=== PATIENT | male | born 1965 | race Caucasian/White ===

== ENCOUNTER 2022-06-11 11:56 | Outpatient (CLI) | payer MEDICARE, OTHER, SELFPAY ==
--- OUTSIDE RECORDS SUMMARY | 2022-07-17 12:17 | XMS_ITS | Clinical Summary ---
:1965 Author Organization [facility] [place] [address] Care Team Providers Name Role Phone Adalid Osborne MD Primary Care Provider [phone] Allergies Active Allergy Reactions Severity Noted Date Comments Lisinopril Other - Describe In 09/30/2019 Creatini ne to 1.59, Comment Field potassium to 5 .4. Improved after stopping. Medications Medication Sig Dispensed Refills Start End Status Date Date allopurinoL (ZYLOPRIM) Take 1.5 135 Tablet 4 09/06/19 Active 300 mg Tablets (450 22 tabletIndications: Gout mg) by mouth of knee, unspecified once daily. cause, unspecified chronicity, unspecified laterality amLODIPine (NORVASC) 10 Take 1 Tablet 90 Tablet 4 09/06/19 Active mg tabletIndications: (10 mg) by 22 Essential hypertension mouth once daily. atenoloL (TENORMIN) 100 Take 1 Tablet 90 tablet. 4 09/06/19 Active mg tabletIndications: (100 mg) by 22 Essential hypertension mouth once daily. atorvastatin (LIPITOR) Take 1 Tablet 90 tablet. 4 09/06/19 Active 40 mg (40 mg) by 22 tabletIndications: mouth once Hyperlipidemia, daily. unspecified hyperlipidemia type glycopyrrolate-formoter Inhale 2 5.9 g 3 09/06/19 Active oL (Bevespi Aerosphere) puffs by 22 9-4.8 mcg mouth twice HFAAIndications: daily. Chronic obstructive pulmonary disease, unspecified COPD type (HC) albuterol-ipratropium Inhale 3 mL 540 mL 3 09/06/19 Active (DUONEB) (2.5-0.5 mg) via a 22 in 3 mL NEBULIZATION nebulizer solutionIndications: every 6 hours Chronic obstructive if needed for pulmonary disease, Shortness of unspecified COPD type Breath 1st (HC) choice. albuterol HFA (PRO-AIR; four times 0 06/15/20 Active VENTOLIN; PROVENTIL) 90 daily 22 mcg/actuation inhaler nicotine 21 mg/24 hr APPLY 1 PATCH 0 06/16/20 Active (NICODERM; HABITROL) 21 TOPICALLY TO 22 mg/24 hr patch THE SKIN EVERY 24 HOURS magnesium oxide (MAG-OX Take 1 Tablet 180 Tablet 3 06/18/20 Active 400) 400 mg (400 mg) by 22 tabletIndications: mouth two Heart failure with times daily. preserved ejection fraction, unspecified HF chronicity (HC) levothyroxine Take 1 Tablet 60 Tablet 6 06/19/20 Ac tive (SYNTHROID) 50 mcg (50 mcg) by 22 tabletIndications: mouth before Hypothyroidism breakfast. (acquired) triamcinolone Apply 45 g 0 07/02/20 Active (ARISTOCORT; KENALOG) topically to 22 0.1 % creamIndications: affected Rash area(s) three times daily. As needed to rash. potassium chloride Take 1 Tablet 90 Tablet 3 07/04/20 Active (Klor-Con M20) 20 mEq (20 mEq) by 22 Extended-Release mouth once tabletIndications: daily with a Heart failure with meal. preserved ejection fraction, unspecified HF chronicity (HC) torsemide (DEMADEX) 20 Take 2 180 Tablet 3 07/04/20 Active mg tabletIndications: Tablets (40 22 Heart failure with mg) by mouth preserved ejection once daily. fraction, unspecified HF chronicity (HC) warfarin (COUMADIN) 1 Take by mouth 0 07/17/20 Active mg tabletIndications: 07/17: 5 mg; 22 Paroxysmal atrial 07/18: 2.5 mg; fibrillation (HC), 07/19: 2.5 mg Anticoagulation in the monitoring, INR range evening OR as 2-3 directed warfarin (COUMADIN) 5 Take by mouth 0 07/17/20 Active mg tabletIndications: 6: 5 mg; 22 Paroxysmal atrial 07/18: 2.5 mg; fibrillation (HC), 07/19: 2.5 mg Anticoagulation in the monitoring, INR range evening OR as 2-3 directed aspirin (ECOTRIN) 81 mg Take 1 tablet 0 10/26/19 Discontinued enteric coated by mouth once 18 022 ( *Med tabletIndications: daily with a complete/Regime Controlled type 2 meal. n diabetes mellitus co mplete/Level without complication, of care change) without long-term current use of insulin (HC) predniSONE (DELTASONE) 3 oral daily 14 tablet 0 09/30/1902/10 Discontinued 20 mg for 2 days, 20 022 (*Med tabletIndications: then 2 daily complete/Regime Chronic obstructive for 4 days. n pulmonary disease, c omplete/Level unspecified COPD type of care change) (HC) hydroCHLOROthiazide Take 1 Tablet 90 Tablet 4 09/06/19 Discontinued (HCTZ) 25 mg (25 mg) by 22 022 (*Medi cation tabletIndications: mouth once adjustment) Essential hypertension daily. magnesium oxide (MAG-OX Take 400 mg 0 06/16/2002/10 Discontinued 400) 400 mg tablet by mouth two 22 022 (Reorder times daily. (E-canc el not sent)) potassium chloride Take 20 mEq 0 06/15/20 Discontinued (MICRO-K) 10 mEq by mouth once 22 022 (Reorder Controlled-release daily. ( E-cancel not capsule sent)) torsemide (DEMADEX) 100 Take 100 mg 0 06/16/2002/10 Discontinued mg tablet by mouth once 22 022 (Reord er daily. (E-cancel not sent)) warfarin (COUMADIN) 5 Take 7.5 mg 0 06/15/20 Discontinued mg tablet by mouth. 22 022 (Reorder (E-cancel not sent)) potassium chloride Take 2 240 Tablet 3 06/18/20 Discontinued (Klor-Con M20) 20 mEq Tablets (40 22 022 (Reorder Extended-Release mEq) by mouth (E-cancel not tabletIndications: two times s ent)) Heart failure with daily with preserved ejection meals. fraction, unspecified HF chronicity (HC) torsemide (DEMADEX) 100 Take 1 Tablet 90 Tablet 3 06/18/20 Discontinued mg tabletIndications: (100 mg) by (Reorder Heart failure with mouth once (E-cancel not preserved ejection daily. s ent)) fraction, unspecified HF chronicity (HC) warfarin (COUMADIN) 5 Take by 0 06/18/20 Discontinued mg tabletIndications: mouth: HOLD 022 (Other - add Paroxysmal atrial on 06/18 until note to specify fibrillation (HC), INR result (E-cancel not Anticoagulation reviewed. sent )) monitoring, INR range 2-3 warfarin (COUMADIN) 5 Take by mouth 0 06/19/2006/12 Discontinued mg tabletIndications: 06/18: Hold; 022 (Other - add Paroxysmal atrial 06/19: 2.5 mg; note to specify fibrillation (HC), 06/20: 2.5 mg (E-cancel not Anticoagulation sent )) monitoring, INR range 2-3 warfarin (COUMADIN) 1 Take 1 Tablet 30 Tablet 0 06/22/2006/12 Discontinued mg tabletIndications: (1 mg) by (Other - add Paroxysmal atrial mouth once n ote to specify fibrillation (HC), daily. ( E-cancel not Anticoagulation sent )) monitoring, INR range 2-3 warfarin (COUMADIN) 5 Has on hand 0 06/22/20 Discontinued mg tabletIndications: not using (Medication Paroxysmal atrial th erapy change fibrillation (HC), p er hospital Anticoagulation prot ocol monitoring, INR range (E-cancel not 2-3 sent)) warfarin (COUMADIN) 1 Take by mouth 0 06/26/2006/12 Discontinued mg tabletIndications: 06/26: 1 mg; (Other - add Paroxysmal atrial 06/27: 2 mg; note to specify fibrillation (HC), 06/28: 1 mg (E-cancel not Anticoagulation in the sent )) monitoring, INR range evening OR as 2-3 directed warfarin (COUMADIN) 1 Take by mouth 0 06/29/2006/13 Discontinued mg tabletIndications: 06/29: 2 mg; (Other - add Paroxysmal atrial 06/30: 1 mg; note to specify fibrillation (HC), 07/01: 1 mg (E-cancel not Anticoagulation sent )) monitoring, INR range 2-3 warfarin (COUMADIN) 1 Take by mouth 0 07/03/2006/13 6 Discontinued mg tabletIndications: 07/03: 2 mg; 22 022 (Reorder Paroxysmal atrial 07/04: 1 mg; (E-cancel not fibrillation (HC), 07/05: 2 mg; sent)) Anticoagulation 07/06: 1 mg monitoring, INR range 2-3 warfarin (COUMADIN) 1 Take by mouth 0 07/07/2006/13 9 Discontinued mg tabletIndications: 07/07: 2.5 22 022 (Medication Paroxysmal atrial mg; 07/08: t herapy change fibrillation (HC), 2.5 mg in the per hospital Anticoagulation evening OR as protocol monitoring, INR range directed (E-cancel not 2-3 sent)) warfarin (COUMADIN) 5 Take by mouth 0 07/10/20 2/2 Discontinued mg tabletIndications: 07/10: 3.5 22 022 (Other - add Paroxysmal atrial mg; 07/11: 3 note to specify fibrillation (HC), mg; 07/12: 3 (E-cancel not Anticoagulation mg in the sent )) monitoring, INR range evening OR as 2-3 directed warfarin (COUMADIN) 1 Take by mouth 0 07/10/20/2 Discontinued mg tabletIndications: 07/10: 3.5 22 022 (Other - add Paroxysmal atrial mg; 07/11: 3 note to specify fibrillation (HC), mg; 07/12: 3 (E-cancel not Anticoagulation mg OR as sent )) monitoring, INR range directed 2-3 warfarin (COUMADIN) 5 Take by mouth 0 07/13/20 6/2 Discontinued mg tabletIndications: 07/13: 2.5 mg; 22 022 (Other - add Paroxysmal atrial 07/14: 2.5 mg; note to specify fibrillation (HC), 07/15: 2.5 mg (E-cancel not Anticoagulation sent )) monitoring, INR range 2-3 warfarin (COUMADIN) 1 Take by mouth 0 07/13/200 6/2 Discontinued mg tabletIndications: 2: 2.5 mg; 22 022 (Other - add Paroxysmal atrial 07/14: 2.5 mg; note to specify fibrillation (HC), 07/15: 2.5 mg (E-cancel not Anticoagulation sent )) monitoring, INR range 2-3 Active Problems Problem Noted Date Pulmonary hypertension 06/18/2022 Paroxysmal atrial fibrillation 06/18/2022 Anticoagulation monitoring, INR range 2-3 06/18/2022 Heart failure with preserved ejection fraction 022 Controlled type 2 diabetes mellitus without complicati [...] 05/10/2015 08/10/2016 Other abnormal glucose 11/20/2006 08/10/2016 Encounters Date Type Specialty Care Team Description 07/17/2022 Anticoagulation 1, [facility] 07/16/2022 Orders Only Lab, [facility] 07/16/2022 Travel 07/13/2022 Anticoagulation 1, [facility] 07/12/2022 Orders Only Lab, [facility] 07/12/2022 Travel 07/09/2022 Orders Only Lab, [facility] 07/09/2022 Anticoagulation 1, [facility] Clinic 07/09/2022 Travel 07/07/2022 Telephone Adalid Osborne MD (Warfarin dosin g review) 07/07/2022 Anticoagulation 1, [facility] 07/06/2022 Orders Only Lab, [facility] 07/06/2022 Orders Only Lab, [facility] 07/06/2022 Travel 07/04/2022 Telephone Adalid Osborne MD 07/03/2022 Anticoagulation 1, [facility] (Provider visit ) 07/02/2022 Office Visit Adalid Osborne Follow Up MD [facility] 07/02/2022 Travel 06/29/2022 Anticoagulation 1, [facility] 06/28/2022 Orders Only Lab, [facility] 06/28/2022 Travel 06/26/2022 Anticoagulation 1, [facility] ([facility]far[facility]) Clinic 06/25/2022 Orders Only Lab, [facility] 06/25/2022 Travel 06/22/2022 Telephone 1, [facility] (dosing) Clinic 06/22/2022 Anticoagulation 1, [facility] ([facility]farin) Clinic 06/21/2022 Orders Only Lab, [facility] 06/21/2022 Travel 06/19/2022 Telephone Adalid Osborne MD 06/19/2022 Telephone Adalid Osborne Questions MD [facility] 06/19/2022 Telephone 1, [facility] (dosing) [facility] 06/18/2022 Office Visit Adalid Osborne [facility] U ([facility], 06/11 - 06/16/2022, A-fi b, COPD) 06/18/2022 Anticoagulation 1, [facility] (Initial (warfarin) Clinic education visit ) 06/18/2022 Telephone Adalid Osborne Anticoagula tion (Lab MD [facility] order for AC cl inic) 06/18/2022 Travel 06/16/2022 Telephone Adalid Osborne Appointment Request MD [facility] (post hospital ) 06/15/2022 Orders Only Scanner <No scans attac hed> 06/12/2022 Orders Only <No scans attac hed> 06/11/2022 Orders Only Scanner <No scans attac hed> 06/11/2022 Orders Only Scanner <No scans attac hed> from Last 3 Months Immunizations Name Administration Dates Next Due COVID-19 vaccine ([employer] 30mcg/0.3mL) 12YO+ 022 BIVALENT BOOSTER PF, MDV COVID-19 vaccine ([employer] 30mcg/0.3mL) 12YO+ 022 INNA-[employer] JAELYN EDWARD COVID-19 vaccine (Pfizer-BioNTech 30mcg/0.3mL) PF, 1, 11/29/2020 JAELYN Family History Medical History Relation Name Comments Diabetes Father Other Father gout Other Mother Anesthesia Problem No Family History Relation Name Status Comments Father Mother Social History Tobacco Use Types Packs/Day Years Used Date Former Smoker Cigarettes 1 35 Quit: 06/11/20 22 Smokeless Tobacco: Never Used Tobacco Cessation: Counseling Given: Yes Comments: 08/13 PPD 06/16/2019 Alcohol Use Standard Drinks/Week Comments [...] Assigned at Date Recorded Not on file COVID-19 Exposure Response Date Recorded In the last 10 days, have you been in contact with No / Unsu re 07/16/2022 11:55 AM WORKFORCE MANAGEMENT CONSULTANT someone who was confirmed or suspected to have Coronavirus/COVID-19? Obstetrics History Last Filed Vital Signs Vital Sign Reading Time Taken Comments Blood Pressure 103/68 07/02/2022 10:55 AM WORKFORCE MANAGEMENT CONSULTANT Pulse 70 07/02/2022 10:55 AM WORKFORCE MANAGEMENT CONSULTANT Temperature 36.7 ??C (98 ??F) 09/30/2019 11:50 AM WORKFORCE MANAGEMENT CONSULTANT Respiratory Rate 20 06/16/2019 7:44 AM WORKFORCE MANAGEMENT CONSULTANT Oxygen Saturation 97% 07/02/2022 10:55 AM WORKFORCE MANAGEMENT CONSULTANT Inhaled Oxygen Concentration - - Weight 153.8 kg (339 lb) 07/02/2022 10:55 AM WORKFORCE MANAGEMENT CONSULTANT Height 180.7 cm (5' 11.14) 09/06/2021 10:13 AM WORKFORCE MANAGEMENT CONSULTANT Body Mass Index 47.09 09/06/2021 10:13 AM WORKFORCE MANAGEMENT CONSULTANT Plan of Treatment Upcoming Encounters Date Type Specialty Care Team Description 07/19/2022 Orders Only Lab, [facility] 07/26/2022 Office Visit Adelfo Mcneil MD [address] [place], [place] [address] (Wo rk) 07/26/2022 Office Visit Adalid Osborne MD [address] [place], [place] [address] (Wo rk) 08/14/2022 Office Visit Chavo Azar MD [address] [address] (Wo rk) Health Maintenance Due Date Last Done Comments Pneumococcal series for age 19-64 1969 (1 - PCV) Tdap 1974 HIV for age 15-65 1978 Hepatitis B series for Diabetes (1 1982 of 3 - Risk 3-dose series) Tetanus booster 1983 Colonoscopy through age 75 2008 Zoster (shingles) series for age 1207/20/2013 50+ (1 of 2) Low Dose CT (for lung CA) age 0804/09/2019 04/09/2018 50-80 Influenza for age 50-64 04/12/2022 BMI (ht and wt on same day) for 09/06/2022 09/06/2021, 08/12, age 18+ 09/30/2019, Additional history exists Depression screening for age 12+ 09/06/2022 09/06/2021, , 08/03/2019, Additional history exists Lipids for age 45-75 09/06/2026 09/06/2021, 08/24/2020, 07/30/2019, Additional history exists Hepatitis C screening for age Completed 08/10/2016 18-79 COVID-19 vaccine series Completed 07/02/2022, 09/06/2021, 12/20/2020, Additional history exists Procedures Procedure Name Priority Date/Time Associated Diagnosis Comme nts PROTIME-INR STAT 07/16/2022 12:04 Paroxysmal atrial Result s for this PM WORKFORCE MANAGEMENT CONSULTANT fibrillation (HC) procedure are in the results section. PROTIME-INR STAT 07/12/2022 1:56 Paroxysmal atrial Results for this PM WORKFORCE MANAGEMENT CONSULTANT fibrillation (HC) procedure are in the results section. BASIC METABOLIC PANEL Routine 07/09/2022 1:57 Heart failure wi th Results for this PM WORKFORCE MANAGEMENT CONSULTANT preserved ejection procedure are in fraction, unspecified the re sults HF chronicity (HC) section. PROTIME-INR STAT 07/09/2022 1:57 Paroxysmal atrial Results for this PM WORKFORCE MANAGEMENT CONSULTANT fibrillation (HC) procedure are in the results section. PROTIME-INR STAT 07/06/2022 9:34 Paroxysmal atrial Results for this AM WORKFORCE MANAGEMENT CONSULTANT fibrillation (HC) procedure are in the results section. URINE ALBUMIN TO Routine 07/06/2022 8:15 Controlled type 2 Res ults for this CREATININE RATIO, AM WORKFORCE MANAGEMENT CONSULTANT diabetes mellitus proce dure are in RANDOM without complication, the re sults without long-term section. current use of insulin (HC) BASIC METABOLIC PANEL Routine 07/02/2022 11:49 Controlled type 2 Results for this AM WORKFORCE MANAGEMENT CONSULTANT diabetes mellitus procedure are in without complication, the re sults without long-term section. current use of insulin (HC) HEMOGLOBIN A1C Routine 07/02/2022 11:49 Controlled type 2 Resu lts for this AM WORKFORCE MANAGEMENT CONSULTANT diabetes mellitus procedure are in without complication, the re sults without long-term section. current use of insulin (HC) PROTIME-INR STAT 07/02/2022 11:49 Paroxysmal atrial Result s for this AM WORKFORCE MANAGEMENT CONSULTANT fibrillation (HC) procedure are in the results section. PROTIME-INR STAT 06/28/2022 12:38 Paroxysmal atrial Result s for this PM WORKFORCE MANAGEMENT CONSULTANT fibrillation (HC) procedure are in the results section. PROTIME-INR STAT 06/25/2022 12:22 Paroxysmal atrial Result s for this PM WORKFORCE MANAGEMENT CONSULTANT fibrillation (HC) procedure are in the results section. PROTIME-INR STAT 06/21/2022 2:13 Paroxysmal atrial Results for this PM WORKFORCE MANAGEMENT CONSULTANT fibrillation (HC) procedure are in the results section. T4,FREE Routine 06/18/2022 12:24 Hypothyroidism Results f or this PM WORKFORCE MANAGEMENT CONSULTANT (acquired) procedure are i n the results section. PROTIME-INR Routine 06/18/2022 12:24 Paroxysmal atrial Result s for this PM WORKFORCE MANAGEMENT CONSULTANT fibrillation (HC) procedure are in the results section. MAGNESIUM Routine 06/18/2022 12:24 Low magnesium level Resu lts for this PM WORKFORCE MANAGEMENT CONSULTANT procedure are i n the results section. TSH WITH REFLEX Routine 06/18/2022 12:24 Hypothyroidism Result s for this PM WORKFORCE MANAGEMENT CONSULTANT (acquired) procedure are i n the results section. BASIC METABOLIC PANEL Routine 06/18/2022 12:24 Heart failure w ith Results for this PM WORKFORCE MANAGEMENT CONSULTANT preserved ejection procedure are in fraction, unspecified the re cielots HF chronicity (HC) section. SCAN-LABORATORY REPORT 06/15/2022 12:00 R esults for this AM CDT procedure are i n the results section. ECHO COMPLETE W Routine 06/12/2022 3:00 Anasarca Results f or this CONTRAST PM CDT procedure are i n the results section. SCAN-ELECTROCARDIOGRAM 06/11/2022 12:00 EKG AM CDT SCAN-CT INTERPRETATION 06/11/2022 12:00 AM CDT from Last 3 Months Results (ABNORMAL) PROTIME-INR (07/16/2022 12:04 PM WORKFORCE MANAGEMENT CONSULTANT)Only the most recent of9 results within the time period is included. athologist Signature INR 1.6 (H) <1.3 07/16/2022 [facility] 8:02 PM WORKFORCE MANAGEMENT CONSULTANT LABORATORY-[facility] PROTIME 18.0 (H) 12.0 - 13.8 07/16/2022 [facility] 8:02 PM WORKFORCE MANAGEMENT CONSULTANT LABORATORY-[facility] Specimen Anatomical Collection Method / Collection Time Recei taisha Time (Source) Location / Volume Laterality Blood BLOOD SPECIMEN / Venipuncture / 07/16/2022 12:04 07/16 Unknown Unknown PM WORKFORCE MANAGEMENT CONSULTANT 12:04 PM WORKFORCE MANAGEMENT CONSULTANT Narrative [facility] LABORATORY-[facility] LABORAT [facility] - 07/16/2022 8:02 PM WORKFORCE MANAGEMENT CONSULTANT ?Therapeutic Range 2.0-3.0 for most anticoagulated patients 2.5-3.5 or 4.0 for high risk patients The INR is only used for patients on sta ble oral anticoagulant therapy. It makes no significant contribution to the diagnosis or treatment of patients whose Protime is prolonged f or other reasons. INR results are increased when heparin l evels exceed 1.0 U/mL, which corresponds to an aPTT >125 seconds if the patient is on UFH. Adalid Osborne MD HEMATOLOGY Performing Organization Address City/State/ZIP Code Phon e Number [email or web address] [id number] [place] [address] LABORATORY-[facility] 1999 LABORATORY (ABNORMAL) BASIC METABOLIC PANEL (07/09/2022 1:57 PM WORKFORCE MANAGEMENT CONSULTANT)Only the most recent of 3 resultswithin the time period is included. [facility] gist Method Time Signature SODIUM 138 135 - 145 07/10/2022 [facility] mmol/L 7:51 PM WORKFORCE MANAGEMENT CONSULTANT LAB[facility]AT[facility] POTASSIUM 4.4 3.5 - 5.0 07/10/2022 [facility] mmol/L 7:51 PM WORKFORCE MANAGEMENT CONSULTANT LAB[facility]ATORY[facility] CHLORIDE 95 (L) 98 - 110 07/10/2022 [facility] mmol/L 7:51 PM WORKFORCE MANAGEMENT CONSULTANT LAB[facility]ATORY[facility] CO2,TOTAL 31 21 - 31 07/10/2022 [facility] mmol/L 7:51 PM WORKFORCE MANAGEMENT CONSULTANT LAB[facility]AT[facility] ANION GAP 12 5 - 18 07/10/2022 [facility] 7:51 PM WORKFORCE MANAGEMENT CONSULTANT LAB[facility]ATORY[facility] GLUCOSE 103 (H) 65 - 100 07/10/2022 [facility] mg/dL 7:51 PM WORKFORCE MANAGEMENT CONSULTANT LAB[facility]ATORY[facility] CALCIUM 10.5 8.5 - 10.5 07/10/2022 [facility] mg/dL 7:51 PM WORKFORCE MANAGEMENT CONSULTANT [facility] BUN 24 8 - 25 07/10/2022 [facility] mg/dL 7:51 PM WORKFORCE MANAGEMENT CONSULTANT [facility] CREATININE 1.29 (H) 0.72 - 07/10/2022 [facility] 1.25 mg/dL 7:51 PM WORKFORCE MANAGEMENT CONSULTANT LAB[facility]ATORY[facility] BUN/CREAT RATIO 19 10 - 20 07/10/2022 [facility] 7:51 PM WORKFORCE MANAGEMENT CONSULTANT LAB[facility]ATORY[facility] eGFR 64 (L) >90 07/10/2022 [facility] mL/min/1.7 7:51 PM WORKFORCE MANAGEMENT CONSULTANT LABORATORY-[facility] 3m2 TRAL LABORATORY Comment: As of 2021, eGFR is calcu lated by the CKD-EPI creatinine equation without race adjustment. eGFR can be inf luenced by muscle mass, exercise, and diet. The reported eGFR is an estimation only and is only applicable if the renal function is stable. Specimen Anatomical Collection Method / Collection Time Recei taisha Time (Source) Location / Volume Laterality Blood BLOOD SPECIMEN / Venipuncture / 07/09/2022 1:57 2021 2:02 Unknown Unknown PM WORKFORCE MANAGEMENT CONSULTANT PM WORKFORCE MANAGEMENT CONSULTANT Adalid Osborne MD CHEMISTRY Performing Organization Address City/State/ZIP Code Phon e Number [facility] [address] [place] [address] LABORATORY-[facility] 2000 LABORATORY URINE ALBUMIN TO CREATININE RATIO, RANDOM (07/06/2022 8:15 AM WORKFORCE MANAGEMENT CONSULTANT) athologist Signature ALB RAND URINE 35.3 mg/L 07/06/2022 [facility] 7:20 PM WORKFORCE MANAGEMENT CONSULTANT LABORATORY-[facility] CREATININE,URIN 1.23 g/L 07/06/2022 [facility] E 7:20 PM WORKFORCE MANAGEMENT CONSULTANT LABORATORY-[facility] ALBUMIN TO 28.7 <30.0 mg/g 07/06/2022 [facility] CREATININE creat 7:20 PM WORKFORCE MANAGEMENT CONSULTANT LABORATORY-CENT RATIO,RAND UR RAL LABORATORY Specimen Anatomical Collection Method Collection Time Receive d Time (Source) Location / / Volume Laterality Urine URINE SPECIMEN / Non-Blood / 07/06/2022 8:15 AM 07/06 9:28 Unknown Unknown WORKFORCE MANAGEMENT CONSULTANT AM WORKFORCE MANAGEMENT CONSULTANT Narrative [facility] LABORATORY-[facility]ENTRAL LABORAT ORY - 07/06/2022 7:20 PM WORKFORCE MANAGEMENT CONSULTANT If Albumin to Creatinine Ratio is elevated, consider the following: ? Elevations seen with incipient nephr opathy associated ?? with diabetes mellitus or hypertensi on. Stress, exercise, ?? hematuria, and urinary tract infecti on may also produce ?? elevated results. If clinically mp cated, confirm with ?? 24 Hour Albumin to Creatinine Ratio. Adalid Osborne MD URINE Performing Organization Address City/State/ZIP Code Phon e Number [facility] [address] [place] [address] LABORATORY-[facility] 2000 LABORATORY HEMOGLOBIN A1C MONITORING (POCT) (07/02/2022 11:49 AM WORKFORCE MANAGEMENT CONSULTANT) athologist Signature HEMOGLOBIN A1C 4.7 <=6.4 % 07/02/2022 [facility] MONITORING 12:04 PM WORKFORCE MANAGEMENT CONSULTANT LULING (POCT) CLINIC Specimen Anatomical Collection Method / Collection Time Recei taisha Time (Source) Location / Volume Laterality Blood BLOOD SPECIMEN / Venipuncture / 07/02/2022 11:49 07/02 Unknown Unknown AM WORKFORCE MANAGEMENT CONSULTANT 11:50 AM WORKFORCE MANAGEMENT CONSULTANT Narrative [facility] - 2021 12:04 PM WORKFORCE MANAGEMENT CONSULTANT ? (<=6.9%) ? Indicates good control ? (7.0% to 7.9%) ? Indicates fa ir control ? (>=8.0%) ? Indicates poor control ?? NOTE: ??These thresholds are guideli karin and ?individual targets may va ry. Falsely low levels may be seen with: Recent Transfusion, Recent Significant B lood Loss, Hemolytic Diseases, or Falsely elevated levels may be seen with : Untreated Anemias, Splenectomy ? Adalid Osborne MD CHEMISTRY Performing Organization Address City/State/ZIP Code Phon e Number [facility] [address] [place] [address] (ABNORMAL) TSH WITH REFLEX (06/18/2022 12:24 PM WORKFORCE MANAGEMENT CONSULTANT) athologist Signature TSH 12.10 (H) 0.35 - 06/19/2022 [facility] [employer] 4.94 9:13 AM WORKFORCE MANAGEMENT CONSULTANT LABORATORY-CENT uIU/mL [facility]ORY Specimen Anatomical Collection Method / Collection Time Recei taisha Time (Source) Location / Volume Laterality Blood BLOOD SPECIMEN / Venipuncture / 06/18/2022 12:24 06/18 Unknown Unknown PM WORKFORCE MANAGEMENT CONSULTANT 12:29 PM WORKFORCE MANAGEMENT CONSULTANT Narrative [facility] LABORATORY-CENTRAL LABORAT ORY - 06/19/2022 9:13 AM WORKFORCE MANAGEMENT CONSULTANT In Adults, TSH values between 5.00 and 10.00 uIU/ml do not necessarily indicate the presence of Hyp othyroidism. Correlation with clinical findings such as presence of goiter and/or Thyroperoxidase (TPO) Antibody ma y be helpful. For more information please refer to SALAS 20 04; 291: [id number]. Adalid Osborne MD CHEMISTRY Performing Organization Address City/State/ZIP Code Phon e Number [email or web address] [id number] [place] [address] LABORATORY-CENTRAL 2000 LABORATORY T4,FREE (06/18/2022 12:24 PM WORKFORCE MANAGEMENT CONSULTANT) P athologist Signature T4,FREE 1.18 0.70 - 1.80 06/19/2022 [facility] ng/dL 10:29 AM WORKFORCE MANAGEMENT CONSULTANT LABORATORY-CENTR AL LABORATORY Specimen Anatomical Collection Method / Collection Time Recei taisah Time (Source) Location / Volume Laterality Blood BLOOD SPECIMEN / Venipuncture / 06/18/2022 12:24 06/18 Unknown Unknown PM WORKFORCE MANAGEMENT CONSULTANT 12:29 PM WORKFORCE MANAGEMENT CONSULTANT Adalid Osborne MD CHEMISTRY Performing Organization Address City/State/ZIP Code Phon e Number [id number] [place] [address] LABORATORY-CENTRAL 2000 LABORATORY MAGNESIUM (06/18/2022 12:24 PM WORKFORCE MANAGEMENT CONSULTANT) athologist Signature MAGNESIUM 1.8 1.6 - 2.6 06/19/2022 [facility] mg/dL 8:52 AM WORKFORCE MANAGEMENT CONSULTANT LABORATORY-CENTR AL LABORATORY Specimen Anatomical Collection Method / Collection Time Recei taisha Time (Source) Location / Volume Laterality Blood BLOOD SPECIMEN / Venipuncture / 06/18/2022 12:24 06/18 Unknown Unknown PM WORKFORCE MANAGEMENT CONSULTANT 12:29 PM WORKFORCE MANAGEMENT CONSULTANT Adalid Osborne MD CHEMISTRY Performing Organization Address City/[facility]/ZIP Code Phon e Number [email or web address] [id number] [place] [address] LABORATORY-CENTRAL 2000 LABORATORY SCAN-LABORATORY REPORT (06/15/2022 12:00 AM CDT) Narrative This result has an attachment that is no t available. Scanner OTHER ECHO COMPLETE W CONTRAST (06/12/2022 3:00 PM CDT) athologist Signature AORTIC VALVE 5 mmHg MEAN PG EJECTION 57 % FRACTION PEAK TR 3.4 m/s VELOCITY LVEDD 5.5 cm EJECTION 60 - 65% FRACTION Anatomical Region Laterality Modality HEART Ultrasound Specimen (Source) Anatomical Collection Method Collection Time Re ceived Time Location / / Volume Laterality 06/12/2022 2:29 PM CDT Narrative 06/13/2022 9:50 AM CDT ECHOCARDIOGRAM KANG REAL ? Accessi on#: ?? [id number] : ?1965 56 years Study Date: ?? 06/12/2022 2:29:39 PM Gender: M ?BP: ? 109/70 mmHg Height: 175.00 cm ?BSA: ?2.83 m? ?? Weight: 190.00 kg ?Tech: ? MHR ? Referring MD: OLENA PURCELL Site: ? [facility] Reading Location: [facility] Procedure: 2D w/ Contrast, Color Doppler and Spectral Doppler. Indication for study: anasarca Cardiac Rhythm: Irregular.Study quality: Technically limited. Imaging limitations: This study was subj ect to imaging limitations due to body habitus. Final Impressions: 1. Technically limited exam. 2. Echo contrast was administrered to e nhance visualization of all left ventricular segments. 3. Normal LV size, mildly increased wal l thickness, normal global systolic function with an estimated EF of 60 - 65%. 4. Right ventricular cavity size is mod erately enlarged, global systolic RV function is moderately reduced. (Not optimally visualized) 5. Mildly enlarged left atrium. 6. The mitral valve is sclerotic, mild mitral regurgitation. 7. Tricuspid regurgitation is mild regu rgitation, the estimated right ventricular systolic pressure is 47 mmHg plus right atrial pressure. 8. The aortic sinus is dilated with a m aximal diameter of 4.1 cm. Chamber Sizes and Function Normal left ventricular size, mildly inc reased wall thickness, normal global systolic function with an estimated EF of 60 - 65%. Left atrial size is mildly enlarged. Right ventricular cavity size is mod erately enlarged, global systolic RV fun ction is moderately reduced. RV wall thickness is normal. The right atrium is mildly enlarged. Right atrial volume index is 27 ml/m? ??. Right atrial area is 23 c m? ??. The pulmonary artery is of normal size and origin. The sinus of Valsalva is dilated. The ascending aorta is normal sized. Valves, RV Pressures and Diastolic Funct ion The aortic valve is not well visualized , no stenosis and no regurgitation. The mitral valve is sclerotic, mild mitral regurgitation. Indeterminate pattern of LV diastolic filling. The tricuspid valve i s normal in structure. Tricuspid regurgi tation is mild regurgitation. The tricuspid regurgitant velocity is 3.4 m/s, the estimated right ventricular systolic pressure is 47 mmHg plus right atrial pressu re. The pulmonic valve is normal. No pul monary regurgitation. Masses, Effusion, Shunts There is no pericardial effusion. The in ferior vena cava is not well visualized, respiratory size variation not well visualized. Interatrial septum is not well visualized. MEASUREMENTS AND CALCULATIONS 2-D Measurements and LV Function: LVID (d) ?5.5 cm LV FS% (2D) ?? 29 % LVID (s) ?3.9 cm LVOT diameter 2.5 c m IVS (d) ? 1.4 cm HR ?59 bpm LVPW (d) ?1.2 cm LA Vol index ??40 m l/m2 Ao Sinus ?4.1 cm RA Vol index ??27 m l/m2 Ao ST junct 3.6 cm RA area ? 23 c m? ?? Asc Ao ?3.6 cm RV Max 4C (d) 3.5 cm LA ?5.4 cm Diastology: Mitral IVRT ?? 37 msec Aortic Valve: Vmax ? 1.6 m/s ??BRICE (V) ?? 3.30 cm? ?? VTI ?0.34 m ?? BRICE (I) ?? 3.27 cm? ?? LVOT V max 1.0 m/s ??Max PG ?10 mmHg LVOT VTI ?? 0.22 m ?? Mean PG ?? 5 mmHg SV ? 112 ml ?? Dim Index 0.65 SV index ?? 40 ml/m? ?? CO ?6.6 l/min ?CI ?2.3 l/min/m? ?? Tricuspid Valve and estimated PA pressur es: TR Vmax 3.4 m/s TAPSE 1.6 cm TR maxG 47 mmHg Contrast documentation: 4ml ml diluted D efinity, lot #[id number], was administered peripherally to enhance visualization of all left ventricular segments. . This study was interpreted [facility] CC: [facility], Med/ Surg - IP [facility]. ??Final ?? Procedure Note Adalid Barrett MD - 06/13/2022Format ting of this note might be different from the original. ECHOCARDIOGRAM KANG REAL : 1965 56 years Study Date: 06/12 2:29:39 PM Gender: M BP: 109/70 mmHg Height: 175.00 cm BSA: 2.83 m? ?? Weight: 190.00 kg Tech: MHR Referring MD: OLENA PURCELL Site: [facility] Reading Location: [facility] Procedure: 2D w/ Contrast, Color Doppler and Spectral Doppler. Indication for study: anasarca Cardiac Rhythm: Irregular.Study quality: Technically limited. Imaging limitations: This study was subj ect to imaging limitations due to body habitus. Final Impressions: 1. Technically limited exam. 2. Echo contrast was administrered to e nhance visualization of all left ventricular segments. 3. Normal LV size, mildly increased wal l thickness, normal global systolic function with an estimated EF of 60 - 65%. 4. Right ventricular cavity size is mod erately enlarged, global systolic RV function is moderately reduced. (Not optimally visualized) 5. Mildly enlarged left atrium. 6. The mitral valve is sclerotic, mild mitral regurgitation. 7. Tricuspid regurgitation is mild regu rgitation, the estimated right ventricular systolic pressure is 47 mmHg plus right atrial pressure. 8. The aortic sinus is dilated with a m aximal diameter of 4.1 cm. Chamber Sizes and Function Normal left ventricular size, mildly inc reased wall thickness, normal global systolic function with an estimated EF of 60 - 65%. Left atrial size is mildly enlarged. Right ventricular cavity size is moderately enlarged, global systolic RV function is moderately reduced. RV wall thickness is normal. The right atrium is mildly enlarged. Right atrial volume index is 27 ml/m? ??. Right atrial area is 23 cm? ??. The pulmonary artery is of normal size and origin. The sinus of Valsalva is dilated. The ascending aorta is normal sized. Valves, RV Pressures and Diastolic Funct ion The aortic valve is not well visualized , no stenosis and no regurgitation. The mitral valve is sclerotic, mild mitral regurgitation. Indeterminate pattern of LV diastolic filling. The tricuspid valve is normal in structure. Tricuspid regurgita tion is mild regurgitation. The tricuspid regurgitant velocity is 3.4 m/s, the estimated right ventricular systolic pressure is 47 mmHg plus right atrial pressure. The pulmonic valve is normal. No pulmonary regurgitat ion. Masses, Effusion, Shunts There is no pericardial effusion. The in ferior vena cava is not well visualized, respiratory size variation not well visualized. Interatrial septum is not well visualized. MEASUREMENTS AND CALCULATIONS 2-D Measurements and LV Function: LVID (d) 5.5 cm LV FS% (2D) 29 % LVID (s) 3.9 cm LVOT diameter 2.5 cm IVS (d) 1.4 cm HR 59 bpm LVPW (d) 1.2 cm LA Vol index 40 ml/m2 Ao Sinus 4.1 cm RA Vol index 27 ml/m2 Ao ST junct 3.6 cm RA area 23 cm? ?? Asc Ao 3.6 cm RV Max 4C (d) 3.5 cm LA 5.4 cm Diastology: Mitral IVRT 37 msec Aortic Valve: Vmax 1.6 m/s BRICE (V) 3.30 cm? ?? VTI 0.34 m BRICE (I) 3.27 cm? ?? LVOT V max 1.0 m/s Max PG 10 mmHg LVOT VTI 0.22 m Mean PG 5 mmHg SV 112 ml Dim Index 0.65 SV index 40 ml/m? ?? CO 6.6 l/min CI 2.3 l/min/m? ?? Tricuspid Valve and estimated PA pressur es: TR Vmax 3.4 m/s TAPSE 1.6 cm TR maxG 47 mmHg Contrast documentation: 4ml ml diluted D efinity, lot #[id number], was administered peripherally to enhance visualization of all left ventricular segments. . This study was interpreted by an [facility] facility. CC: [facility], Med/ Surg - [facility]. Final Olena Purcell MD ECHO ORD SCAN-CT INTERPRETATION (06/11/2022 12:00 AM CDT) Narrative This result has an attachment that is no t available. Scanner OTHER SCAN-ELECTROCARDIOGRAM EKG (06/11/2022 12:00 AM CDT) Narrative This result has an attachment that is no t available. Scanner OTHER from Last 3 Months Insurance Payer Benefit Plan / Subscriber ID Effective Dates Phone Addre ss Type Group MEDICA MR MEDICA PRIME [id number] 2021-Present [address] [address] SOLUTIONS MR PB [place] , [facility] [id number] Advance Directives Latest Code Status on File Code Status Date Activated Date Inactivated Comments Full Code 08/13/2018 10:38 AM 08/19/2018 4:57 PM Full Code 04/10/2018 1:40 PM 04/17/2018 4:02 PM Full Code 05/10/2015 3:24 PM 05/12/2015 7:43 PM Care Teams Airplane Designer Relationship Specialty Start Date End Date Adalid Osborne MD PCP - General 03/11/06 [place] [address]
== END 2022-06-11 11:57 | disposition home or self-care (01) ==
LOC: AMB 07-17 11:15
PROVIDERS: PCP Family Medicine; Visit Provider Family Medicine
DX: R06.09 Other forms of dyspnea (principal); R60.0 Localized edema
CPT/HCPCS: A0425; A0427

== ENCOUNTER 2022-06-11 12:27 | Inpatient (IN) | payer MEDICARE, OTHER, SELFPAY ==
[2022-06-11] VITALS (19 sets, daily range): BP systolic 111–138; BP diastolic 50–84; PULSE 60–80; RESP 17–28; TEMP 35.9–36.6; O2SAT 90–97; BMI 57.2; BMI 127.8
--- NOTE | 2022-06-11 12:55 | ED_ITS ---
HPI - General Adult General Date Seen: 06/11/22 Chief complaint: Shortness of Breath/Dyspnea Stated complaint: difficulty breathing Time Seen by Provider: 06/11/22 12:36 Source: patient and family History of Present Illness HPI narrative: Patient is a 56-year-old male who presents by ambulance for evaluation of bilateral lower extremity swelling and shortness of breath. He tells me that he was diagnosed with COPD several years ago and has had difficulty breathing ever since then. He has had worsening of his shortness of breath over a number of weeks, perhaps months. Over the past couple of weeks, he has had significant increase in lower extremity edema. Over the past couple of days, he has also noted some redness on the right lower extremity at the spot where his says he had a fly bite. He does not have significant pain there, but says he does not have good sensation in general. He has not had any fevers. He says he is basically not able to walk at this point because his legs are so edematous that they are too heavy for him to lift. He is significantly overweight. His also notes that he is cold all the time which is unusual for him. It does not sound as if his shortness of breath is acutely worse over the past couple of days. He does not sleep lying flat at baseline. He has not had any chest pain. Has not noted any palpitations, no lightheadedness or fainting. No vomiting or abdominal pain. He continues to smoke. He drinks nearly daily, but says he does not have trouble with withdrawal. Has not had alcohol for the past 4 days. Denies other substance use. He is on disability secondary to his COPD. He is not on home oxygen. His was not able to get him up to get him into the car, which is why they called 911. Related Data Home Medications Medication Instructions Recorded Confirmed allopurinol 300 mg tablet 450 mg PO DAILY 06/11/22 06/11/22 amlodipine 10 mg tablet 10 mg PO DAILY 06/11/22 06/11/22 atenolol 100 mg tablet 100 mg PO DAILY 06/11/22 06/11/22 atorvastatin 40 mg tablet 40 mg PO HS 06/11/22 06/11/22 hydrochlorothiazide 25 mg tablet 25 mg PO DAILY 06/11/22 06/11/22 Allergies Allergy/AdvReac Type Severity Reaction Status Date / Time No Known Drug Allergies Allergy Verified 06/11/22 16:32 Review of Systems Status of ROS: Reports: 10 or more systems reviewed and unremarkable except as noted in History and below PFSH PFSH Medical History COPD (chronic obstructive pulmonary disease) Degenerative joint disease (DJD) of lumbar spine Essential hypertension Gout Hypertriglyceridemia Non-insulin dependent diabetes mellitus Normocytic anemia Tobacco use Social History Highest level of school completed/degree received: high school graduate Smoking Status: Current every day smoker What tobacco products do you use: cigarettes Smoking packs per day: 2 Smoking cigarettes per day: 40.0 Years smoked: 42 Smoking pack-years: 84.00 Do you use any of these nicotine containing products: None Second hand tobacco smoke exposure: No How often do you have a drink containing alcohol: 2-3 times a week How many standard drinks containing alcohol do you have on a typical day: 5 or 6 How often do you have six or more drinks on one occasion: Weekly AUDIT-C Alcohol total score: 8 Non-prescribed substance use: denies use service: Yes Exam Narrative: Exam Narrative: Vital signs as noted above. In general, an alert, nontoxic male, somewhat tachypneic. Significantly overweight. Head: Normocephalic, atraumatic. Eyes: Pupils are equal reactive. Extraocular movements are full. Conjunctivae are normal. ENT: Mucous membranes are moist. Throat is normal. Neck: Supple without lymphadenopathy. No stridor. Heart: Irregular, no significant murmur. Lungs: Scattered wheezes. No significant increased work of breathing. No crackles. Abdomen: Obese and soft. Nontender to palpation. Extremities: Significant edema in bilateral lower extremities. Too much edema to palpate pulses. On the right, there is a wound on anterior liu with surrounding erythema. No fluctuance or crepitus. Neurologic: Patient is alert and oriented to person and place. Speech is fluent. Face is symmetric. Moves all extremities equally. Affect: Normal. Skin: Warm and dry. Well perfused. Const: Vital Signs, click to edit/add: Vital Signs - 24 hr 06/11/22 12:37 06/11/22 13:48 06/11/22 13:00 Temperature 96.7 F L Pulse Rate [Left A pical] Pulse Rate [Right Pulse Oximeter] 65 61 Respiratory Rate 28 H 24 Blood Pressure [Le ft Arm] Blood Pressure [Ri ght Upper Arm] 138/76 120/66 Pulse Oximetry 96 92 93 Oxygen Delivery Me thod Room Air Room Air 06/11/22 13:30 06/11/22 14:00 06/11/22 14:30 Temperature Pulse Rate [Left A pical] Pulse Rate [Right Pulse Oximeter] 62 61 67 Respiratory Rate 23 17 24 Blood Pressure [Le ft Arm] Blood Pressure [Ri ght Upper Arm] 117/72 126/76 111/65 Pulse Oximetry 93 97 95 Oxygen Delivery Ma thod Room Air Room Air Room Air 06/11/22 17:40 06/11/22 17:40 06/11/22 17:40 Temperature 97.3 F L Pulse Rate [Left A pical] 75 Pulse Rate [Right Pulse Oximeter] Respiratory Rate 22 Blood Pressure [Le ft Arm] 114/71 Blood Pressure [Ri ght Upper Arm] Pulse Oximetry 93 93 93 Oxygen Delivery Ma thod Room Air Room Air 06/11/22 17:30 06/11/22 15:00 06/11/22 15:30 Temperature 97.3 F L Pulse Rate [Left A pical] 75 Pulse Rate [Right Pulse Oximeter] 68 60 Respiratory Rate 22 23 Blood Pressure [Le ft Arm] 114/71 Blood Pressure [Ri ght Upper Arm] 136/74 119/50 L Pulse Oximetry 93 90 90 Oxygen Delivery Ma thod Room Air Room Air Room Air 06/11/22 16:00 Temperature Pulse Rate [Left A pical] Pulse Rate [Right Pulse Oximeter] 66 Respiratory Rate 22 Blood Pressure [Le ft Arm] Blood Pressure [Ri ght Upper Arm] 133/71 Pulse Oximetry 92 Oxygen Delivery Ma thod Room Air Documenting provider has reviewed patient's vital signs: yes Course Course Hospital Course: Will place an IV here, drug labs. I am giving him some Lasix for edema, altho ugh at this point I am not overly suspicious of significant congestive heart failure, will check a BNP. I am also giving prednisone and will give a DuoNeb for COPD. He is not hypoxic, and I do not think he needs oxygen. We will check a TSH to rule out hypothyroidism as a contributing factor to his edema. It does appear that he has a developing cellulitis on the right lower extremity although it is mild at this time. He is afebrile without tachycardia or hypotension, doubt sepsis but will await labs. Reevaluation(s) Reevaluation #1: I elected to hold off on a chest x-ray since I had a D-dimer pending and might need to do a chest CT. In the meantime, wheezing did improve somewhat with the DuoNeb. I treated the cellulitis with Ancef. Labs showed a normal white blood cell count of 6.44, hemoglobin of 11.2. Gas was relatively unremarkable, pH of 7.45 and pCO2 was 49. Electrolytes showed a mildly low potassium of 3.3, other electrolytes normal. Lactate was normal at 1.6. LFTs normal. CRP minimally elevated at 1.9. BNP was elevated at 27 50. TSH was elevated 9.66 but free T4 was normal at 1.4. COVID was negative. Point of care troponin 0. His D-dimer did ultimately returned elevated therefore I added on a CT of the chest. My review of this shows a moderate left-sided effusion, I did not see evidence of any large central PEs but it was a poor study for PE. He left the emergency department prior to the formal Radiology read. They read the effusion as small with associated atelectasis, no evidence of PE. Overall, patient has evidence of significant lower extremity edema to the point that it is inhibiting his ability to ambulate, COPD with possible exacerbation, also with possible CHF c ontributing to worsening shortness of breath. I do think he needs admission to the hospital for diuresis, management of his COPD, treatment for cellulitis. Vital Signs Vital signs: Initial Vital Signs Temperature 96.7 F L 06/11/22 12:37 Temperature Source Temporal Artery Scan 06/11/22 12:37 Pulse Rate 65 06/11/22 12:37 Respiratory Rate 28 H 06/11/22 12:37 Blood Pressure 138/76 06/11/22 12:37 Blood Pressure Mean 96 06/11/22 12:37 Blood Pressure Position Sitting 06/11/22 12:37 Pulse Oximetry 96 06/11/22 12:37 Oxygen Delivery Method 06/11/22 12:37 Vital Signs Temperature 96.7 F L 06/11/22 12:37 Pulse Rate 65 06/11/22 12:37 Respiratory Rate 28 H 06/11/22 12:37 Blood Pressure 138/76 06/11/22 12:37 Pulse Oximetry 96 06/11/22 12:37 Oxygen Delivery Method 06/11/22 12:37 Temperature 97.3 F L 06/11/22 17:43 Pulse Rate 72 06/11/22 19:40 Respiratory Rate 22 06/11/22 18:33 Blood Pressure 114/71 06/11/22 17:43 Pulse Oximetry 94 06/11/22 18:33 Oxygen Delivery Method 06/11/22 18:33 Medical Decision Making Lab Data Labs: Lab Results 06/11/22 06/11/22 06/11/22 Range/Units 12:30 12:30 12:30 WBC 6.44 (4.50-11.00) K/uL RBC 3.97 L (4.30-5.90) m/uL Hgb 11.2 L (13.5-17.5) gm/dL Hct 39.3 (37.0-53.0) % MCV 99 (80-100) fL MCH 28 (26-34) pg MCHC 29 L (32-36) gm/dL RDW Coeff of Klaus 20.4 H (11.5-15.5) % Plt Count 250 (140-440) K/uL Neut % (Auto) 74.6 H (42.0-72.0) % Lymph % (Auto) 18.9 L (20-44) % [place] % (Auto) 4.8 (0.0-11.0) % Eos % (Auto) 0.9 (0.0-7.0) % Baso % (Auto) 0.2 (0.0-3.0) % Neut # (Auto) 4.80 (1.7-7.0) K/uL Lymph # (Auto) 1.20 (0.90-2.90) K/uL [place] # (Auto) 0.30 (0.00-0.90) K/UL Eos # (Auto) 0.06 (0.00-0.50) K/uL Baso # (Auto) 0.01 (0.00-0.30) K/uL Abs Immat Gran (auto) 0.04 (0.00-0.30) K/uL Diff Slide Review Acceptable Review (Acceptable) D-Dimer Quant (PE/DVT) 1.59 H (0.00-0.50) ug/ml VBG pH (7.32-7.43) VBG pCO2 (40-50) mmHG VBG pO2 (25-47) mmHG VBG HCO3 (21-28) mmol/L Sodium 140 (135-149) mmol/L Potassium 3.3 L (3.6-5.1) mmol/L Chloride 99 (96-114) mmol/L Carbon Dioxide 32 (20-32) mmol/L BUN 15 (7-30) mg/dL Creatinine 0.8 (0.5-1.5) mg/dL Estimated Creat Clear 107.20 Estimated GFR 103 ml/min Glucose 104 (60-115) mg/dL Lactate (0.5-1.9) mmol/L Calcium 9.4 (8.4-10.6) mg/dL Total Bilirubin 0.8 (0.1-1.5) mg/dL Direct Bilirubin 0.2 (0.0-0.5) mg/dL AST 30 (12-35) U/L ALT 16 (4-50) U/L Alkaline Phosphatase 125 (40-150) U/L C-Reactive Protein 1.9 H (0.5-1.0) mg/dL NT-Pro-B Natriuret Pep 2750 H (0-125) PG/mL Total Protein 7.3 (6.0-8.3) g/dL Albumin 3.9 (3.3-5.0) g/dL TSH (0.270-4.200) uIU/mL Free T4 (0.70-1.85) ng/dL SARS-CoV-2 (PCR) (Negative) POC Troponin I (0.01-0.04) ng/ml 06/11/22 06/11/22 06/11/22 Range/Units 12:30 12:30 12:30 WBC (4.50-11.00) K/uL RBC (4.30-5.90) m/uL Hgb (13.5-17.5) gm/dL Hct (37.0-53.0) % MCV (80-100) fL MCH (26-34) pg MCHC (32-36) gm/dL RDW Coeff of Klaus (11.5-15.5) % Plt Count (140-440) K/uL Neut % (Auto) (42.0-72.0) % Lymph % (Auto) (20-44) % [place] % (Auto) (0.0-11.0) % Eos % (Auto) (0.0-7.0) % Baso % (Auto) (0.0-3.0) % Neut # (Auto) (1.7-7.0) K/uL Lymph # (Auto) (0.90-2.90) K/uL [place] # (Auto) (0.00-0.90) K/UL Eos # (Auto) (0.00-0.50) K/uL Baso # (Auto) (0.00-0.30) K/uL Abs Immat Gran (auto) (0.00-0.30) K/uL Diff Slide Review (Acceptable) D-Dimer Quant (PE/DVT) (0.00-0.50) ug/ml VBG pH (7.32-7.43) VBG pCO2 (40-50) mmHG VBG pO2 (25-47) mmHG VBG HCO3 (21-28) mmol/L Sodium (135-149) mmol/L Potassium (3.6-5.1) mmol/L Chloride (96-114) mmol/L Carbon Dioxide (20-32) mmol/L BUN (7-30) mg/dL Creatinine (0.5-1.5) mg/dL Estimated Creat Clear Estimated GFR ml/min Glucose (60-115) mg/dL Lactate 1.6 (0.5-1.9) mmol/L Calcium (8.4-10.6) mg/dL Total Bilirubin (0.1-1.5) mg/dL Direct Bilirubin (0.0-0.5) mg/dL AST (12-35) U/L ALT (4-50) U/L Alkaline Phosphatase (40-150) U/L C-Reactive Protein (0.5-1.0) mg/dL NT-Pro-B Natriuret Pep (0-125) PG/mL Total Protein (6.0-8.3) g/dL Albumin (3.3-5.0) g/dL TSH 9.660 H (0.270-4.200) uIU/mL Free T4 1.41 (0.70-1.85) ng/dL SARS-CoV-2 (PCR) Negative SARS-CoV-2 (Negative) POC Troponin I (0.01-0.04) ng/ml 06/11/22 06/11/22 Range/Units 12:30 13:20 WBC (4.50-11.00) K/uL RBC (4.30-5.90) m/uL Hgb (13.5-17.5) gm/dL Hct (37.0-53.0) % MCV (80-100) fL MCH (26-34) pg MCHC (32-36) gm/dL RDW Coeff of Klaus (11.5-15.5) % Plt Count (140-440) K/uL Neut % (Auto) (42.0-72.0) % Lymph % (Auto) (20-44) % [place] % (Auto) (0.0-11.0) % Eos % (Auto) (0.0-7.0) % Baso % (Auto) (0.0-3.0) % Neut # (Auto) (1.7-7.0) K/uL Lymph # (Auto) (0.90-2.90) K/uL [place] # (Auto) (0.00-0.90) K/UL Eos # (Auto) (0.00-0.50) K/uL Baso # (Auto) (0.00-0.30) K/uL Abs Immat Gran (auto) (0.00-0.30) K/uL Diff Slide Review (Acceptable) D-Dimer Quant (PE/DVT) (0.00-0.50) ug/ml VBG pH 7.450 H (7.32-7.43) VBG pCO2 49 (40-50) mmHG VBG pO2 41.7 (25-47) mmHG VBG HCO3 34 H (21-28) mmol/L Sodium (135-149) mmol/L Potassium (3.6-5.1) mmol/L Chloride (96-114) mmol/L Carbon Dioxide (20-32) mmol/L BUN (7-30) mg/dL Creatinine (0.5-1.5) mg/dL Estimated Creat Clear Estimated GFR ml/min Glucose (60-115) mg/dL Lactate (0.5-1.9) mmol/L Calcium (8.4-10.6) mg/dL Total Bilirubin (0.1-1.5) mg/dL Direct Bilirubin (0.0-0.5) mg/dL AST (12-35) U/L ALT (4-50) U/L Alkaline Phosphatase (40-150) U/L C-Reactive Protein (0.5-1.0) mg/dL NT-Pro-B Natriuret Pep (0-125) PG/mL Total Protein (6.0-8.3) g/dL Albumin (3.3-5.0) g/dL TSH (0.270-4.200) uIU/mL Free T4 (0.70-1.85) ng/dL SARS-CoV-2 (PCR) (Negative) POC Troponin I 0.00 L (0.01-0.04) ng/ml
--- OUTSIDE RECORDS SUMMARY | 2022-06-11 13:07 | XMS_ITS | Clinical Summary ---
:1965 Author Organization [employer] [facility] [place] [address] Care Team Providers Name Role Phone Adalid Osborne MD Primary Care Provider [phone] Allergies Active Allergy Reactions Severity Noted Date Comments Lisinopril Other - Describe In 09/30/2019 Creatini ne to 1.59, Comment Field potassium to 5 .4. Improved after stopping. Medications Medication Sig Dispensed Refills Start Date End Date Status aspirin (ECOTRIN) 81 mg Take 1 tablet 0 10/25/2017 Active enteric coated by mouth once tabletIndications: daily with a Controlled type 2 meal. diabetes mellitus without complication, without long-term current use of insulin (HC) predniSONE (DELTASONE) 20 3 oral daily 14 tablet 0 09/30/2019 Active mg tabletIndications: for 2 days, Chronic obstructive then 2 daily pulmonary disease, for 4 days. unspecified COPD type (HC) allopurinoL (ZYLOPRIM) Take 1.5 135 Tablet 4 09/06/2021 Active 300 mg tabletIndications: Tablets (450 Gout of knee, unspecified mg) by mouth cause, unspecified once daily. chronicity, unspecified laterality amLODIPine (NORVASC) 10 Take 1 Tablet 90 Tablet 4 09/06/2021 Active mg tabletIndications: (10 mg) by Essential hypertension mouth once daily. atenoloL (TENORMIN) 100 Take 1 Tablet 90 tablet. 4 09/06/2021 Active mg tabletIndications: (100 mg) by Essential hypertension mouth once daily. atorvastatin (LIPITOR) 40 Take 1 Tablet 90 tablet. 4 2 Active mg tabletIndications: (40 mg) by Hyperlipidemia, mouth once unspecified daily. hyperlipidemia type hydroCHLOROthiazide Take 1 Tablet 90 Tablet 4 09/06/2021 Active (HCTZ) 25 mg (25 mg) by tabletIndications: mouth once Essential hypertension daily. glycopyrrolate-formoteroL Inhale 2 puffs 5.9 g 3 2 Active (Bevespi Aerosphere) by mouth twice 9-4.8 mcg daily. HFAAIndications: Chronic obstructive pulmonary disease, unspecified COPD type (HC) albuterol-ipratropium Inhale 3 mL via 540 mL 3 09/06/2021 Active (DUONEB) (2.5-0.5 mg) in a nebulizer 3 mL NEBULIZATION every 6 hours solutionIndications: if needed for Chronic obstructive Shortness of pulmonary disease, Breath 1st unspecified COPD type choice. (HC) Active Problems Problem Noted Date Controlled type 2 diabetes mellitus without complicati on, without 10/25/2017 long-term current use of insulin Tobacco abuse 08/27/2017 Acute diverticulitis of intestine 05/10/2015 Anemia, unspecified 05/10/2015 Lumbosacral spondylosis without myelopathy 12/26/2007 Cervical spondylosis without myelopathy 12/26/2007 Morbid obesity 11/20/2006 Gout, unspecified 11/20/2006 Personal history of tobacco use, presenting hazards to health 11/20/2006 HYPERTRIGLYCERIDEMIA 11/20/2006 Benign essential HTN 11/20/2006 Perforated diverticulum of large intestine Resolved Problems Problem Noted Date Resolved Date Abdominopelvic abscess 04/13/2018 09/06/2021 Acute low back pain 05/10/2015 08/10/2016 Acute renal failure 05/10/2015 09/06/2021 Hyperglycemia 05/10/2015 08/10/2016 Tobacco use disorder 05/10/2015 08/10/2016 Other abnormal glucose 11/20/2006 08/10/2016 Immunizations Name Administration Dates Next Due COVID-19 vaccine ([employer] 30mcg/0.3mL) 12YO+ 022 INNA-SUCROSE PF, MDV COVID-19 vaccine ([employer] 30mcg/0.3mL) PF, 1, 11/29/2020 MDV Family History Medical History Relation Name Comments Diabetes Father Other Father gout Other Mother Anesthesia Problem No Family History Relation Name Status Comments Father Mother Social History Tobacco Use Types Packs/Day Years Used Date Former Smoker Cigarettes 1 35 Quit: 09/12/19 19 Smokeless Tobacco: Never Used Tobacco Cessation: Counseling Given: Yes Comments: 1/ PPD 06/16/2019 Alcohol Use Standard Drinks/Week Comments No 2 (1 standard drink = 0.6 oz pure alcoho l) none Alcohol Habits Answer Date Recorded How often do you have a drink containing alcohol? Not asked How many drinks containing alcohol do you have on a typical Not asked day when you are drinking? How often do you have six or more drinks on one occasion? No t asked Comment: none 08/07/2018 Sex Assigned at Date Recorded Not on file Obstetrics History Last Filed Vital Signs Vital Sign Reading Time Taken Comments Blood Pressure 135/68 09/06/2021 11:36 AM [employer]IST Pulse 92 09/06/2021 10:13 AM [employer]IST Temperature 36.7 ??C (98 ??F) 09/30/2019 11:50 AM [employer]IST Respiratory Rate 20 06/16/2019 7:44 AM [employer]IST Oxygen Saturation 97% 09/06/2021 10:13 AM [employer]IST Inhaled Oxygen Concentration - - Weight 171.5 kg (378 lb) 09/06/2021 10:13 AM [employer]IST Height 180.7 cm (5' 11.14) 09/06/2021 10:13 AM [employer]IST Body Mass Index 52.51 09/06/2021 10:13 AM [employer]IST Plan of Treatment Upcoming Encounters Date Type Specialty Care Team Description 06/14/2022 Office Visit Adalid Osborne MD [address] [phone] (Wo rk) Health Maintenance Due Date Last Done Comments Pneumococcal series for age 19-64 1969 (1 - PCV) Tdap 1974 Hepatitis B series for Diabetes (1 1982 of 3 - Risk 3-dose series) Tetanus booster 1983 Colonoscopy through age 75 2008 Zoster (shingles) series for age 1207/20/2013 50+ (1 of 2) Low Dose CT (for lung CA) age 0804/09/2019 04/09/2018 50-80 COVID-19 vaccine series (4 - 11/01/2021 09/06/2021, 021, Booster for Pfizer series) 11/29/2020 Influenza for age 50-64 04/12/2022 BMI (ht and wt on same day) for 09/06/2022 09/06/2021, 08/12, age 18+ 09/30/2019, Additional history exists Depression screening for age 12+ 09/06/2022 09/06/2021, , 08/03/2019, Additional history exists Lipids for age 45-75 09/06/2026 09/06/2021, 08/24/2020, 07/30/2019, Additional history exists Hepatitis C screening for age Completed 08/10/2016 18-79 Results Not on filefrom Last 3 Months Insurance Payer Benefit Plan / Subscriber ID Effective Dates Phone Addre ss Type Group MEDICA MR MEDICA PRIME [id number] 2021-Present [address] [address] [employer] [facility] [id number] Advance Directives Latest Code Status on File Code Status Date Activated Date Inactivated Comments Full Code 08/13/2018 10:38 AM 08/19/2018 4:57 PM Full Code 04/10/2018 1:40 PM 04/17/2018 4:02 PM Full Code 05/10/2015 3:24 PM 05/12/2015 7:43 PM Care Teams Hospice Registered Nurse Relationship Specialty Start Date End Date Adalid Osborne MD PCP - General 03/11/06 [address] [place] [address]
[2022-06-11] MEDS: predniSONE 20 MG TABLET 60 MG PO (13:29)
[2022-06-11] MEDS: FUROSEMIDE 10 MG/ML inj 40 MG IVP (13:31)
[2022-06-11] MEDS: IPRAT-ALBUT 0.5-2.5 MG/3 ML NEB 1 NEB IH (13:33)
[2022-06-11 13:39] LABS: HCO3 VBG 34 mmol/L (21-28); PCO2 VBG 49 mmHG (40-50); PO2 VBG 41.7 mmHG (25-47)
[2022-06-11 13:41] LABS: Lactate* 1.6 mmol/L (0.5-1.9)
[2022-06-11 13:42] LABS: Basophils Absolute Auto 0.01 K/uL (0.00-0.30); Basophils Percent Auto 0.2 % (0.0-3.0); Eosinophils Absolute Auto 0.06 K/uL (0.00-0.50); Eosinophils Percent Auto 0.9 % (0.0-7.0); Hematocrit 39.3 % (37.0-53.0); Hemoglobin* 11.2 gm/dL (13.5-17.5); Immature Granulocytes Abs Auto 0.04 K/uL (0.00-0.30); Lymphocytes Percent Auto 18.9 % (20-44); Mean Corpuscular HGB Conc 29 gm/dL (32-36); Mean Corpuscular Hemoglobin 28 pg (26-34); Mean Corpuscular Volume 99 fL (80-100); Monocytes Percent Auto 4.8 % (0.0-11.0); Neutrophils Percent Auto 74.6 % (42.0-72.0); Platelet Count* 250 K/uL (140-440); RDW Coefficient of Variation % 20.4 % (11.5-15.5); Red Blood Count 3.97 m/uL (4.30-5.90); White Blood Count* 6.44 K/uL (4.50-11.00)
[2022-06-11 13:45] LABS: Slide Review Reflex Yes
[2022-06-11 14:11] LABS: Albumin* 3.9 g/dL (3.3-5.0); Chloride* 99 mmol/L (96-114)
[2022-06-11 14:12] LABS: Potassium* 3.3 mmol/L (3.6-5.1); Sodium* 140 mmol/L (135-149)
[2022-06-11 14:14] LABS: Creatinine* 0.8 mg/dL (0.5-1.5); Estimated Glomerular Filt Rate 103 ml/min
[2022-06-11 14:15] LABS: Alanine Aminotransferase* 16 U/L (4-50); Alkaline Phosphatase* 125 U/L (40-150); Aspartate Amino Transferase* 30 U/L (12-35); Bilirubin Direct* 0.2 mg/dL (0.0-0.5); Bilirubin Total* 0.8 mg/dL (0.1-1.5); Blood Urea Nitrogen* 15 mg/dL (7-30); Calcium* 9.4 mg/dL (8.4-10.6); Carbon Dioxide* 32 mmol/L (20-32); Glucose* 104 mg/dL (60-115); Total Protein* 7.3 g/dL (6.0-8.3)
[2022-06-11 14:18] LABS: C Reactive Protein* 1.9 mg/dL (0.5-1.0)
[2022-06-11 14:22] LABS: NT Pro B Type NatriureticPept* 2750 PG/mL (0-125)
[2022-06-11 14:24] LABS: SARS PCR* Negative SARS-CoV-2 (Negative)
[2022-06-11 14:33] LABS: D Dimer Quantitative* 1.59 ug/ml (0.00-0.50); Slide Review Acceptable Review (Acceptable)
[2022-06-11 15:43] LABS: Free T4 Free Thyroxine* 1.41 ng/dL (0.70-1.85)
--- NOTE | 2022-06-11 15:43 | CRLHL7_ITS ---
For Patients: As a result of the Century Cures Act, medical imaging exams and procedure reports are released immediately into your electronic medical record. You may view this report before your referring provider. If you have questions, please contact your health care provider. INDICATION: Difficulty breathing. TECHNIQUE: CT chest PE was acquired with 95 mL Isovue 370. IV contrast. Coronal and sagittal reformats were generated. COMPARISON: None. FINDINGS: Pulmonary arteries: The quality of enhancement of the pulmonary arteries is adequate. No filling defects to suggest pulmonary emboli. No findings of pulmonary artery hypertension. Thyroid: Unremarkable. Thoracic lymph nodes: No enlarged supraclavicular, mediastinal, hilar, or axillary lymph nodes. Mediastinum and esophagus: Unremarkable. Heart and vasculature: Unremarkable. Lungs: Patchy left lower lobe opacity is probably atelectasis. The right lung is clear. Pleura: Small left pleural effusion. Chest wall: Unremarkable. Upper abdomen: No acute or significant findings. Bones: Unremarkable for age. IMPRESSION: 1. No pulmonary embolism. 2. Small left pleural effusion with associated atelectasis. Please note that all CT scans at this facility use dose modulation, iterative reconstruction, and/or weight-based dosing when appropriate to reduce radiation dose to as low as reasonably achievable. Dictated by Kel Aly MD @ 06/11/2022 5:08:16 PM (Electronically Signed)
--- NOTE | 2022-06-11 16:49 | W.PC.EDHO ---
Primary Language: Preferred Language: Orientation Status: [] Alert & Oriented [] Slight Confusion [] Known Dx Dementia Transfers By: [] Assist of 1 [] Assist of 2 [] Lift Active Medications Discontinued Medications Generic Name Dose Route Start Last Admin Trade Name Bony PRN Reason Stop Dose Admin Albuterol/Ipratropium 1 neb 06/11/22 12:48 06/11/22 13:33 Iprat-Albut 0.5-2.5 Mg/3 Ml Neb IH 06/11/22 12:49 1 neb ONCE ONE Administration Furosemide 40 mg 06/11/22 12:48 06/11/22 13:31 Furosemide 10 Mg/Ml Inj IVP 06/11/22 12:49 40 mg ONCE ONE Administration Prednisone 60 mg 06/11/22 12:48 06/11/22 13:29 Prednisone 20 Mg Tablet PO 06/11/22 12:49 60 mg ONCE ONE Administration Description of Symptoms ED Triage Present Problem patient has been having increased SOB and swelling Description in the lower extremities and in the abdomen over the past couple of days. Patient has an [facility] [place] [place] appointment on . Abdomen is firm and patient stated is swollen unable to wear clothes as not fitting right with weight gain. EMS given albu/atro neb on the way in to help with breathing not much improvement. continues to feel sob. pulse ox 96% on room air ED Triage Date of Onset of 06/11/22 Symptoms Female History Patient Pain Pain Description [Lower Sharp,Dull, Achy Posterior Back] Pain Intensity [Lower 3 Posterior Back] Pain Intensity 3 Pain Scale Used [Lower Numeric (1 - 10) Posterior Back] Pain Scale Used Numeric (1 - 10) IV Insertion/Site Date of IV Line Insertion [ 06/11/22 Right Forearm] Date of IV Line Insertion [ 06/11/22 Left Wrist] Oxygen Administration Pulse Oximetry 95 Pulse Oximetry 97 Pulse Oximetry 92 Pulse Oximetry 93 Pulse Oximetry 93 Pulse Oximetry 96 Oxygen Delivery Method Room Air Oxygen Delivery Method Room Air Oxygen Delivery Method Room Air Oxygen Delivery Method Room Air Oxygen Delivery Method Room Air Cardiac Monitoring EKG Method 12 Lead
[2022-06-11] MEDS: NICOTINE 21 MG PATCH 1 PATCH TRANSDERMA (16:50)
[2022-06-11] MEDS: CEFAZOLIN 1 GM in 0.9 % SODIUM CHLORIDE Mini-bag 100 ML IVPB ×2 (16:50→23:50)
--- NOTE | 2022-06-11 17:15 | ED.NURSE ---
report was called to cody mills rn. to 251 via cart. was incont of large amt of urine. has had ct .
--- NOTE | 2022-06-11 18:16 | PM.IMHP1 ---
Hospitalist- H&P: HPI History of Present Illness Date Seen: 06/11/22 Chief complaint: difficulty breathing Narrative: Facundo Real is a 56 year old male presented to the emergency room by ambulance today for acute on chronic dyspnea and diffuse lower extremity swelling. Patient is a history of COPD, follows with pulmonology as an outpatient; is chronically dyspneic but feels that symptoms have worsened in the last 1-2 weeks. Unsure of any inciting incident. He has also noted lower extremity edema, present for the past few week edema has gotten so significant that he is unable to fit into any of his pants, and he has noted scrotal edema. He is also having difficulty ambulating secondary to the edema. He is using a 4 wheeled walker at home, but today was unable to ambulate to even get in his car to come to the emergency room for evaluation. Associated symptoms include very poor sleep; patient thinks that his breathing is affecting his sleep ability, but denies any specific PND. He has not noticed any chest pain or pressure accompanying his symptoms. He did have a nuclear med stress test in 2018 that was concerning for a small area of ischemia versus artifact. ER course and findings: - elevated D-dimer - no PE on imaging, small left pleural effusion noted - negative troponin - area of cellulitis on right lower extremity, Ancef initiated - hemoglobin of 12.5 (baseline is 15, was normal in August of 2021) - elevated TSH, normal T4 Patient's medical history is notable for COPD as noted above. He also has a history of severe diverticulitis, history of perforation and colocutaneous fistula, status post open sigmoidectomy in 2019. He has not had a colonoscopy since that time. Other past medical and surgical history updated below. Patient's PCP Dr. Osborne. Patient lives with Froylan, not currently working (on [employer]). Previously worked as a sprinkler truck driver. His son lives in [place]. Froylan would be medical decision maker if needed; patient and family request DNR/DNI status. Facundo smokes 2 packs per day of cigarettes, nicotine patch was started in the emergency room. He drinks 4-5 beers, most nights of the week. He has not had a drink in 4 days, and he has no history of alcohol withdrawal. Review of Systems Status of ROS: Reports: 10 or more systems reviewed and unremarkable except as noted in History and below Narrative: Specifically denies chest pain, headache, dark stools. [facility] Medical History (Updated 06/11/22 @ 18:26 by Olena Lawton MD) COPD (chronic obstructive pulmonary disease) Degenerative joint disease (DJD) of lumbar spine Essential hypertension Gout Hypertriglyceridemia Non-insulin dependent diabetes mellitus Normocytic anemia Social History Smoking Status: Current every day smoker What tobacco products do you use: cigarettes Smoking packs per day: 2 Smoking cigarettes per day: 40.0 Years smoked: 42 Smoking pack-years: 84.00 Do you use any of these nicotine containing products: None Second hand tobacco smoke exposure: No How often do you have a drink containing alcohol: 2-3 times a week How many standard drinks containing alcohol do you have on a typical day: 5 or 6 How often do you have six or more drinks on one occasion: Weekly AUDIT-C Alcohol total score: 8 Non-prescribed substance use: denies use service: Yes Meds Home Medications and Allergies Home Medications Medication Instructions Recorded Confirmed Type allopurinol 300 mg tablet 450 mg PO DAILY 06/11/22 06/11/22 History amlodipine 10 mg tablet 10 mg PO DAILY 06/11/22 06/11/22 History atenolol 100 mg tablet 100 mg PO DAILY 06/11/22 06/11/22 History atorvastatin 40 mg tablet 40 mg PO HS 06/11/22 06/11/22 History hydrochlorothiazide 25 mg tablet 25 mg PO DAILY 06/11/22 06/11/22 History Home Medication Comments: also on Bevespi 9-4.8 BID Allergies Allergy/AdvReac Type Severity Reaction Status Date / Time No Known Drug Allergies Allergy Verified 06/11/22 16:32 Exam Narrative: Exam Narrative: GEN: Alert and oriented, answering questions appropriately HEENT: Normal external ears, EOMIs bilaterally, no scleral icterus CV: RRR, heart sounds are distant, which limits exam, no concerning murmurs noted R: LCTA bilaterally without concerning wheezing, rales, or rhonchi, air movement adequate Abdomen: Protuberant, no tenderness to palpation, no discernible masses Ext: 3 to 4+ pitting edema bilaterally, up to mid thigh, bilaterally Skin: Erythema right anterior lower extremity, mild warmth, no induration or fluctuance Neuro: Nonfocal, no resting tremor Psych: Appropriate Const: Vital Signs, click to edit/add: Vital Signs - 24 hr 06/11/22 12:37 06/11/22 13:48 06/11/22 13:00 Temperature 96.7 F L Pulse Rate [Left A pical] Pulse Rate [Right Pulse Oximeter] 65 61 Respiratory Rate 28 H 24 Blood Pressure [Le ft Arm] Blood Pressure [Ri ght Upper Arm] 138/76 120/66 Pulse Oximetry 96 92 93 Oxygen Delivery Me thod Room Air Room Air 06/11/22 13:30 06/11/22 14:00 06/11/22 14:30 Temperature Pulse Rate [Left A pical] Pulse Rate [Right Pulse Oximeter] 62 61 67 Respiratory Rate 23 17 24 Blood Pressure [Le ft Arm] Blood Pressure [Ri ght Upper Arm] 117/72 126/76 111/65 Pulse Oximetry 93 97 95 Oxygen Delivery Me thod Room Air Room Air Room Air 06/11/22 17:40 06/11/22 17:40 06/11/22 17:40 Temperature 97.3 F L Pulse Rate [Left A pical] 75 Pulse Rate [Right Pulse Oximeter] Respiratory Rate 22 Blood Pressure [Le ft Arm] 114/71 Blood Pressure [Ri ght Upper Arm] Pulse Oximetry 93 93 93 Oxygen Delivery Me thod Room Air Room Air Hospitalist - H&P: Result Labs Labs: Short CBC 06/11/22 Range/Units 12:30 WBC 6.44 (4.50-11.00) K/uL Hgb 11.2 L (13.5-17.5) gm/dL Hct 39.3 (37.0-53.0) % Plt Count 250 (140-440) K/uL BMP 06/11/22 12:30 Sodium 140 Potassium 3.3 L Chloride 99 Carbon Dioxide 32 BUN 15 Creatinine 0.8 Glucose 104 Calcium 9.4 Liver Function 06/11/22 Range/Units 12:30 Total Bilirubin 0.8 (0.1-1.5) mg/dL Direct Bilirubin 0.2 (0.0-0.5) mg/dL AST 30 (12-35) U/L ALT 16 (4-50) U/L Alkaline Phosphatase 125 (40-150) U/L Albumin 3.9 (3.3-5.0) g/dL Assessment and Plan Assessment and plan (1) Dyspnea: Status: Acute Assessment and Plan: Likely multifactorial: COPD exacerbation, presumed CHF, presumed MIRANDA, anemia. - RT referral placed - steroids for COPD exacerbation - TTE in Lasix for edema, concerning for CHF - Follow hemoglobins, outpatient workup for anemia (2) COPD (chronic obstructive pulmonary disease): Problem comment: Gold 2B per Pulmonology Status: Acute (3) Non-insulin dependent diabetes mellitus: Problem comment: last A1C 5.6 (08/2021) Status: Acute Assessment and Plan: - Accu-Cheks with sliding scale insulin (4) Essential hypertension: Status: Acute Assessment and Plan: - continue home medications (5) Normocytic anemia: Status: Acute Assessment and Plan: - hemoccult stools (6) Lower extremity edema: Status: Acute Assessment and Plan: - significant, TTE and Lasix, consider secondary causes (IE nephrotic syndrome) if TTE nondiagnostic (7) Cellulitis of right anterior lower leg: Status: Acute Assessment and Plan: - continue Ancef Plan - per above - Lovenox for prophylaxis - DNR/DNI status
--- NOTE | 2022-06-11 20:05 | PC.NURSE ---
Pt arrived to room 251 via stretcher at 1715 from ED with his Froylan. Pt received Lasix in the ED and he was incontinent of urine on the stretcher. Pt admitted by myself after eval by Dr. Lawton. 2GM sodium diet ordered, HR irregular. Pt dyspneic at rest and on exertion, using accessory muscles to breathe, tachypneic. Oxygen sats 93% on r/a. Pt states he does not use oxygen at home or use a CPAP machine. Denies chest pain. Right anterior liu has a scab with surrounding inflamed pink tissue. Pitting BLE edema. Pt states he has gained about 33 pounds since he was last weighed.(382lbs per pt recall). Morbidly obese male w/nicotine patch on right shoulder d/to smoking. No alcohol in 4 days. Initial two CIWA scores were zero out of 10. PT/OT and nutritional consults initiated. Last BM 06/10/22. Passing flatus liberally. Cooperative with nsg interventions. Pt had his colon burst 3.5 years ago and he had an emergency COLECTOMY at [facility]. Dr. Lawton recommended pt have an outpatient colonoscopy d/to mild anemia. Plan telemetry. Report to Mansi GANT for remainder of evening shift.
[2022-06-11] MEDS: RIVAROXABAN 10 MG TABLET 20 MG PO (21:24)
[2022-06-11] MEDS: MELATONIN 3 MG TABLET PO (21:24)
[2022-06-11] MEDS: ATORVASTATIN CALCIUM 40 MG TABLET PO (21:24)
--- NOTE | 2022-06-11 23:51 | PC.NURSE ---
VSS AND AFEBRILE. PATIENT DENIED PAIN OR N/V BUT CONTINUES TO REPORT SOB AT REST AND WORSENED WITH EXERTION. 3+ PITTING EDEMA TO BILATERAL LOWER EXTREMITIES. RIGHT FARLEY WITH SMALL SCABBED AREA AND RED. PATIENT STATES THIS REDNESS HAS BEEN PRESENT LAST 4 DAYS OR SO. TELE PLACED AND PATIENT IN ATRIAL FIBRILLATION. DR. PURCELL UPDATED. EDUCATION PROVIDED TO PATIENT AND STARTED ON XARELTO. PATIENT DOES REPORT SMOKING A COUPLE PACKS A DAY. HE ALSO REPORTS THAT HE DRINKS A LOT OF VODKA REGULARLY BUT HAS NOT DRANK IN 4 DAYS. PATIENT DENIES EVER HAVING GONE THROUGH ETOH WITHDRAWAL IN THE PAST. WHEN ASKED HOW MUCH VODKA HE DRINKS ON DAYS HE DOES DRINK, HE RESPONDED I'D RATHER NOT SAY. EDUCATED PATIENT ON CIWA AND CURRENTLY SCORING 0.
[2022-06-12] VITALS (11 sets, daily range): BP systolic 105–131; BP diastolic 58–80; PULSE 64–71; RESP 20–24; TEMP 36.6–36.9; O2SAT 92–96
--- NOTE | 2022-06-12 05:08 | PC.NURSE ---
[id number] Pt slept on and off during night, c/o of difficulty getting comfortable. denies pain, some sob present but pt states this is normal. Cough noted with white thick phlegm.
[2022-06-12 06:58] LABS: Hematocrit 36.2 % (37.0-53.0); Hemoglobin* 10.3 gm/dL (13.5-17.5); Immature Granulocytes Abs Auto 0.04 K/uL (0.00-0.30); Lymphocytes Absolute Auto 1.44 K/uL (0.90-2.90); Lymphocytes Percent Auto 21.3 % (20-44); Mean Corpuscular HGB Conc 29 gm/dL (32-36); Mean Corpuscular Hemoglobin 28 pg (26-34); Mean Corpuscular Volume 99 fL (80-100); Monocytes Percent Auto 5.5 % (0.0-11.0); Neutrophils Percent Auto 72.6 % (42.0-72.0); Platelet Count* 244 K/uL (140-440); RDW Coefficient of Variation % 20.2 % (11.5-15.5); Red Blood Count 3.65 m/uL (4.30-5.90); White Blood Count* 6.75 K/uL (4.50-11.00)
[2022-06-12 07:10] LABS: Slide Review Reflex No
[2022-06-12 07:16] LABS: Chloride* 98 mmol/L (96-114)
[2022-06-12 07:17] LABS: Albumin* 3.8 g/dL (3.3-5.0); Potassium* 4.3 mmol/L (3.6-5.1); Sodium* 143 mmol/L (135-149)
[2022-06-12 07:20] LABS: Alkaline Phosphatase* 107 U/L (40-150); Aspartate Amino Transferase* 27 U/L (12-35); Bilirubin Total* 0.5 mg/dL (0.1-1.5); Blood Urea Nitrogen* 16 mg/dL (7-30); Carbon Dioxide* 37 mmol/L (20-32); Creatinine* 0.9 mg/dL (0.5-1.5); Est. Creatinine Clearance* 95.29; Estimated Glomerular Filt Rate 99 ml/min
[2022-06-12 07:21] LABS: Alanine Aminotransferase* 16 U/L (4-50); Calcium* 9.4 mg/dL (8.4-10.6); Glucose* 120 mg/dL (60-115)
[2022-06-12 07:23] LABS: C Reactive Protein* 1.7 mg/dL (0.5-1.0)
[2022-06-12] MEDS: predniSONE 20 MG TABLET 60 MG PO (07:59)
[2022-06-12] MEDS: CEFAZOLIN 1 GM in 0.9 % SODIUM CHLORIDE Mini-bag 100 ML IVPB ×3 (07:59→23:37)
[2022-06-12] MEDS: FUROSEMIDE 10 MG/ML inj 40 MG IVP ×2 (10:10→15:59)
[2022-06-12] MEDS: atenoloL 50 MG TABLET 100 MG PO (10:11)
[2022-06-12] MEDS: AMLODIPINE 10 MG TABLET PO (10:11)
[2022-06-12] MEDS: allopurinoL 300 MG TABLET 450 MG PO (10:11)
--- NOTE | 2022-06-12 10:17 | P.IMPN_ITS ---
Progress Note: A&P Assessment and plan (1) Dyspnea: Problem details: Multifactorial: COPD exacerbation, presumed CHF and MIRANDA, anemia. Status: Acute Assessment and Plan: - TTE today - continue steroids for COPD - continue high dose diuretics (2) COPD (chronic obstructive pulmonary disease): Problem details: Gold 2B per Pulmonology Status: Acute Assessment and Plan: - continue Prednisone, prn nebs - appreciate input from RT (3) Atrial fibrillation: Problem details: New diagnosis 06/11, rate controlled. Xarelto initiated 06/11 Status: Acute Assessment and Plan: - Rate controlled. Continue home Atenolol, initiated Xarelto 06/11 (4) Non-insulin dependent diabetes mellitus: Problem details: last A1C 5.6 (08/2021) Status: Acute Assessment and Plan: - continue accuchecks, SSI (5) Essential hypertension: Problem details: Stopped home Amlodipine on 06/12/22 Status: Acute Assessment and Plan: - BP on the lower side since admission (likely 2/2 diuresis). - Stop Amlodipine today given lower BPs and significant LE edema (6) Normocytic anemia: Status: Acute Assessment and Plan: - hemoccult stool, may need outpatient workup (7) Lower extremity edema: Status: Acute Assessment and Plan: - continue diuretics, await TTE results - PT and OT ordered given significant deconditioning from edema and dyspnea (8) Cellulitis of right anterior lower leg: Problem details: Ancef initiated 06/11 Status: Acute Assessment and Plan: - continue Ancef, clinically improving Plan - per above - Xarelto for ppx Subjective Date Seen: 06/12/22 Interval history: No acute events overnight, although patient continues to endorse sleeping poorly. Has remained in rate controlled atrial fibrillation since admission. Facundo has no concerns for me today, but wants to make sure he stays on his Allopurinol to prevent a gout flare He has been seen by respiratory therapy, + concern for MIRANDA contributing to symptoms. TTE scheduled for this afternoon. Tolerating current medications and cares. Exam Narrative: Exam Narrative: GEN: Alert and oriented, laying comfortably on side in bed HEENT: Normal external ears, EOMIs bilaterally, no scleral icterus CV: Heart sounds distant, irregular rate. No concerning murmurs, rubs, or gallops R: Wheezing at bilateral bases, no rales or rhonchi. Air movement slightly decreased Ext: 3 to 4+ pitting edema noted to mid thigh, also noted in lower abdomen Skin: Erythema on right anterior lower extremity is improved from admission Neuro: Nonfocal, no resting tremor, gait not observed Psych: Appropriate Const: Vital Signs, click to edit/add: Vital Signs - 24 hr 06/11/22 12:37 06/11/22 13:48 06/11/22 13:00 Temperature 96.7 F L Pulse Rate Pulse Rate [Left A pical] Pulse Rate [Right Pulse Oximeter] 65 61 Respiratory Rate 28 H 24 Blood Pressure [Le ft Arm] Blood Pressure [Ri ght Upper Arm] 138/76 120/66 Pulse Oximetry 96 92 93 Oxygen Delivery Me thod Room Air Room Air 06/11/22 13:30 06/11/22 14:00 06/11/22 14:30 Temperature Pulse Rate Pulse Rate [Left A pical] Pulse Rate [Right Pulse Oximeter] 62 61 67 Respiratory Rate 23 17 24 Blood Pressure [Le ft Arm] Blood Pressure [Ri ght Upper Arm] 117/72 126/76 111/65 Pulse Oximetry 93 97 95 Oxygen Delivery Wi thod Room Air Room Air Room Air 06/11/22 17:40 06/11/22 17:40 06/11/22 17:40 Temperature 97.3 F L Pulse Rate Pulse Rate [Left A pical] 75 Pulse Rate [Right Pulse Oximeter] Respiratory Rate 22 Blood Pressure [Le ft Arm] 114/71 Blood Pressure [Ri ght Upper Arm] Pulse Oximetry 93 93 93 Oxygen Delivery Wi thod Room Air Room Air 06/11/22 17:43 06/11/22 17:30 06/11/22 18:33 Temperature 97.3 F L 97.3 F L Pulse Rate Pulse Rate [Left A pical] 75 75 Pulse Rate [Right Pulse Oximeter] Respiratory Rate 22 22 22 Blood Pressure [Le ft Arm] 114/71 114/71 Blood Pressure [Ri ght Upper Arm] Pulse Oximetry 93 93 94 Oxygen Delivery Me thod Room Air Room Air Room Air 06/11/22 19:40 06/11/22 18:23 06/11/22 15:00 Temperature Pulse Rate 72 Pulse Rate [Left A pical] Pulse Rate [Right Pulse Oximeter] 68 Respiratory Rate Blood Pressure [Le ft Arm] Blood Pressure [Ri ght Upper Arm] 136/74 Pulse Oximetry 93 90 Oxygen Delivery Me thod Room Air Room Air 06/11/22 15:30 06/11/22 16:00 06/11/22 21:00 Temperature 97.8 F Pulse Rate Pulse Rate [Left A pical] 75 Pulse Rate [Right Pulse Oximeter] 60 66 Respiratory Rate 23 22 24 Blood Pressure [Le ft Arm] 118/80 Blood Pressure [Ri ght Upper Arm] 119/50 L 133/71 Pulse Oximetry 90 92 93 Oxygen Delivery Me thod Room Air Room Air Room Air 06/11/22 19:00 06/11/22 20:00 06/11/22 23:00 Temperature 97.5 F L 97.5 F L 97.9 F Pulse Rate Pulse Rate [Left A pical] 79 80 69 Pulse Rate [Right Pulse Oximeter] Respiratory Rate 24 24 22 Blood Pressure [Le ft Arm] 131/79 121/84 116/56 L Blood Pressure [Ri ght Upper Arm] Pulse Oximetry 92 93 93 Oxygen Delivery Me thod Room Air Room Air Room Air 06/11/22 23:00 06/12/22 01:13 06/12/22 03:00 Temperature Pulse Rate 67 Pulse Rate [Left A pical] 69 68 Pulse Rate [Right Pulse Oximeter] Respiratory Rate 22 22 Blood Pressure [Le ft Arm] 121/73 Blood Pressure [Ri ght Upper Arm] Pulse Oximetry 96 Oxygen Delivery Me thod Room Air 06/12/22 07:00 06/12/22 08:11 06/12/22 08:57 Temperature 98.2 F 98.2 F Pulse Rate 64 Pulse Rate [Left A pical] 66 66 Pulse Rate [Right Pulse Oximeter] Respiratory Rate 22 22 Blood Pressure [Le ft Arm] 109/70 109/70 Blood Pressure [Ri ght Upper Arm] Pulse Oximetry 92 92 Oxygen Delivery Me thod Room Air Room Air Labs Labs: Laboratory Results - last 24 hr 06/11/22 06/11/22 06/11/22 12:30 12:30 12:30 WBC 6.44 RBC 3.97 L Hgb 11.2 L Hct 39.3 MCV 99 MCH 28 MCHC 29 L RDW Coeff of Klaus 20.4 H Plt Count 250 Neut % (Auto) 74.6 H Lymph % (Auto) 18.9 L [place] % (Auto) 4.8 Eos % (Auto) 0.9 Baso % (Auto) 0.2 Neut # (Auto) 4.80 Lymph # (Auto) 1.20 [place] # (Auto) 0.30 Eos # (Auto) 0.06 Baso # (Auto) 0.01 Abs Immat Gran (auto) 0.04 Diff Slide Review Acceptable Review D-Dimer Quant (PE/DVT) 1.59 H VBG pH VBG pCO2 VBG pO2 VBG HCO3 Sodium 140 Potassium 3.3 L Chloride 99 Carbon Dioxide 32 BUN 15 Creatinine 0.8 Estimated Creat Clear 107.20 Estimated GFR 103 Glucose 104 Lactate Calcium 9.4 Total Bilirubin 0.8 Direct Bilirubin 0.2 AST 30 ALT 16 Alkaline Phosphatase 125 C-Reactive Protein 1.9 H NT-Pro-B Natriuret Pep 2750 H Total Protein 7.3 Albumin 3.9 TSH Free T4 SARS-CoV-2 (PCR) POC Troponin I 06/11/22 06/11/22 06/11/22 12:30 12:30 12:30 WBC RBC Hgb Hct MCV MCH MCHC RDW Coeff of Klaus Plt Count Neut % (Auto) Lymph % (Auto) [place] % (Auto) Eos % (Auto) Baso % (Auto) Neut # (Auto) Lymph # (Auto) [place] # (Auto) Eos # (Auto) Baso # (Auto) Abs Immat Gran (auto) Diff Slide Review D-Dimer Quant (PE/DVT) VBG pH VBG pCO2 VBG pO2 VBG HCO3 Sodium Potassium Chloride Carbon Dioxide BUN Creatinine Estimated Creat Clear Estimated GFR Glucose Lactate 1.6 Calcium Total Bilirubin Direct Bilirubin AST ALT Alkaline Phosphatase C-Reactive Protein NT-Pro-B Natriuret Pep Total Protein Albumin TSH 9.660 H Free T4 1.41 SARS-CoV-2 (PCR) Negative SARS-CoV-2 POC Troponin I 06/11/22 06/11/22 06/12/22 12:30 13:20 06:07 WBC 6.75 RBC 3.65 L Hgb 10.3 L Hct 36.2 L MCV 99 MCH 28 MCHC 29 L RDW Coeff of Klaus 20.2 H Plt Count 244 Neut % (Auto) 72.6 H Lymph % (Auto) 21.3 [place] % (Auto) 5.5 Eos % (Auto) 0.0 Baso % (Auto) 0.0 Neut # (Auto) 4.90 Lymph # (Auto) 1.44 [place] # (Auto) 0.40 Eos # (Auto) 0.00 Baso # (Auto) 0.00 Abs Immat Gran (auto) 0.04 Diff Slide Review D-Dimer Quant (PE/DVT) VBG pH 7.450 H VBG pCO2 49 VBG pO2 41.7 VBG HCO3 34 H Sodium Potassium Chloride Carbon Dioxide BUN Creatinine Estimated Creat Clear Estimated GFR Glucose Lactate Calcium Total Bilirubin Direct Bilirubin AST ALT Alkaline Phosphatase C-Reactive Protein NT-Pro-B Natriuret Pep Total Protein Albumin TSH Free T4 SARS-CoV-2 (PCR) POC Troponin I 0.00 L 06/12/22 06:07 WBC RBC Hgb Hct MCV MCH MCHC RDW Coeff of Klaus Plt Count Neut % (Auto) Lymph % (Auto) [place] % (Auto) Eos % (Auto) Baso % (Auto) Neut # (Auto) Lymph # (Auto) [place] # (Auto) Eos # (Auto) Baso # (Auto) Abs Immat Gran (auto) Diff Slide Review D-Dimer Quant (PE/DVT) VBG pH VBG pCO2 VBG pO2 VBG HCO3 Sodium 143 Potassium 4.3 Chloride 98 Carbon Dioxide 37 H BUN 16 Creatinine 0.9 Estimated Creat Clear 95.29 Estimated GFR 99 Glucose 120 H Lactate Calcium 9.4 Total Bilirubin 0.5 Direct Bilirubin AST 27 ALT 16 Alkaline Phosphatase 107 C-Reactive Protein 1.7 H NT-Pro-B Natriuret Pep Total Protein 7.0 Albumin 3.8 TSH Free T4 SARS-CoV-2 (PCR) POC Troponin I
[2022-06-12] MEDS: ACETAMINOPHEN 325 MG TABLET 975 MG PO (13:07)
--- NOTE | 2022-06-12 13:58 | PC.NURSE ---
End of Shift Note: Patient main complaint today is that he did not sleep at all last night. He is going to be getting a different bed this afternoon hopefully one that will help him sleep a little easier tonight. Asked him how he felt his breathing was if it was any better than when he first arrived to the hospital. States no that its the same. He complained of some back pain this afternoon which he received a dose of tyl. Awaiting to have an echocardiogram. Will continue to monitor.
[2022-06-12] MEDS: NICOTINE 21 MG PATCH 1 PATCH TRANSDERMA (15:59)
--- NOTE | 2022-06-12 16:16 | RESP.RT ---
Pt seen this AM. laying in bed on side. Difficult to auscultate BS, decreased in bases. On RA. Started aerobika with pt. He is doing ok with it, not really very interested in it. Followed up this afternoon, and encouraged use of aerobika. States he is not more short of breath than usual. Suspect pt has a sleep disorder. based on Pt says he cannot sleep on back, only his side, with multiple pillows. Continue with home breathing medications.
[2022-06-12] MEDS: RIVAROXABAN 10 MG TABLET 20 MG PO (18:27)
[2022-06-12] MEDS: ATORVASTATIN CALCIUM 40 MG TABLET PO (21:22)
[2022-06-12] MEDS: MELATONIN 3 MG TABLET PO (21:22)
--- NOTE | 2022-06-12 22:56 | PC.NURSE ---
Shift Note [id number]: Moving around room independently. VS WNL Expiratory rhonchi throughout. Afebrile. RLE erythema appears to be improving. BG= 129 and 151.
[2022-06-13] VITALS (10 sets, daily range): BP systolic 121–139; BP diastolic 64–77; PULSE 57–84; RESP 18–24; TEMP 36.6–36.8; O2SAT 91–95
--- NOTE | 2022-06-13 05:31 | PC.NURSE ---
[id number] Pt restless during night, frequently moved between bed and recliner throughout night. denies pain. pt sob with ambulation.
[2022-06-13 06:02] LABS: HCO3 VBG 37 mmol/L (21-28); PCO2 VBG 55 mmHG (40-50); PO2 VBG 38.1 mmHG (25-47); pH VBG 7.438 (7.32-7.43)
[2022-06-13 06:20] LABS: Eosinophils Absolute Auto 0.01 K/uL (0.00-0.50); Eosinophils Percent Auto 0.1 % (0.0-7.0); Hematocrit 34.3 % (37.0-53.0); Hemoglobin* 9.9 gm/dL (13.5-17.5); Immature Granulocytes Abs Auto 0.02 K/uL (0.00-0.30); Lymphocytes Absolute Auto 1.83 K/uL (0.90-2.90); Lymphocytes Percent Auto 24.9 % (20-44); Mean Corpuscular HGB Conc 29 gm/dL (32-36); Mean Corpuscular Hemoglobin 29 pg (26-34); Mean Corpuscular Volume 99 fL (80-100); Monocytes Percent Auto 6.5 % (0.0-11.0); Neutrophils Absolute Auto 5.02 K/uL (1.7-7.0); Neutrophils Percent Auto 68.2 % (42.0-72.0); Platelet Count* 226 K/uL (140-440); RDW Coefficient of Variation % 19.9 % (11.5-15.5); Red Blood Count 3.45 m/uL (4.30-5.90); White Blood Count* 7.36 K/uL (4.50-11.00)
[2022-06-13 06:32] LABS: Slide Review Reflex No
[2022-06-13 06:37] LABS: Chloride* 98 mmol/L (96-114); Potassium* 3.6 mmol/L (3.6-5.1); Sodium* 143 mmol/L (135-149)
[2022-06-13 06:40] LABS: Blood Urea Nitrogen* 19 mg/dL (7-30); Carbon Dioxide* 35 mmol/L (20-32); Creatinine* 0.9 mg/dL (0.5-1.5); Est. Creatinine Clearance* 95.29; Estimated Glomerular Filt Rate 99 ml/min; Glucose* 121 mg/dL (60-115)
[2022-06-13 06:47] LABS: NT Pro B Type NatriureticPept* 2930 PG/mL (0-125)
[2022-06-13 07:14] LABS: Troponin I* < 0.01 ng/mL (0.01-0.04)
[2022-06-13] MEDS: CEFAZOLIN 1 GM in 0.9 % SODIUM CHLORIDE Mini-bag 100 ML IVPB ×2 (09:20→16:01)
[2022-06-13] MEDS: predniSONE 20 MG TABLET 60 MG PO (09:24)
[2022-06-13] MEDS: ACETAMINOPHEN 325 MG TABLET 975 MG PO (09:24)
[2022-06-13] MEDS: FUROSEMIDE 10 MG/ML inj 80 MG IVP ×2 (09:24→16:02)
[2022-06-13] MEDS: allopurinoL 300 MG TABLET 450 MG PO (09:25)
[2022-06-13] MEDS: atenoloL 50 MG TABLET 100 MG PO (09:25)
--- NOTE | 2022-06-13 10:39 | NUTR.NU ---
RDN with MD consult for low sodium diet education related to CHF. RDN visited with patient with designated caregiver present, Froylan, whom agreed to diet education. Nutrition education provided on a low sodium diet related to congestive heart failure. Verbal and written information provided. Recommend limiting sodium to 2,000 mg per day. Discussed foods recommended and to avoid. Handouts provided from [facility] on heart failure nutrition therapy, sodium content of foods, heart healthy label reading tips, sodium-free flavoring tips and heart healthy cooking and shopping tips. Patient verbalized understanding. RDN's contact information was provided and patient was encouraged to call with questions.
--- NOTE | 2022-06-13 14:12 | PM.IMPN1 ---
Progress Note: A&P Assessment and plan (1) Dyspnea: Problem details: Multifactorial: COPD exacerbation, presumed CHF and MIRANDA, morbid obesity. Status: Acute (2) COPD (chronic obstructive pulmonary disease): Problem details: Gold 2B per Pulmonology. Inhaled bronchodilators and systemic corticosteroids Status: Acute (3) Atrial fibrillation: Problem details: New diagnosis 06/11, rate controlled. Xarelto initiated 06/11. Status: Acute (4) Non-insulin dependent diabetes mellitus: Problem details: last A1C 5.6 (08/2021) Status: Acute (5) Essential hypertension: Problem details: Stopped home Amlodipine on 06/12/22 Status: Acute (6) Normocytic anemia: Problem details: Outpatient followup Status: Acute (7) Lower extremity edema: Status: Acute (8) Cellulitis of right anterior lower leg: Problem details: Ancef initiated 06/11. Transition to oral cephalosporin at discharge Status: Acute Plan Continue in hospital for ongoing vigorous diuresis. Will compress legs with elastic wraps and elevate legs as much as possible to help with lymphedema. Time Spent With Patient Total time spent: Total time spent is 45 minutes, 30 minutes in coordination of care discussing with patient, and other providers ongoing management of dyspnea, edema, cellulitis Subjective Date Seen: 06/13/22 Interval history: 56-year-old male seen in followup of heart failure, COPD, leg cellulitis, anasarca. Patient reports acute on chronic worsening of dyspnea edema weight gain. Time of admission he was diagnosed with heart failure, COPD, leg cellulitis and noted to have severe lymphedema or anasarca. He was started on diuresis yesterday and thinks he has had some improvement. He was given antibiotics and thinks that his leg is looking better. Exam Narrative: Exam Narrative: He is alert and appears in no distress. Respirations are relatively clear to auscultation he has diffusely diminished breath sounds. Slight inspiratory wheezing is noted this improved with coughing. No marked expiratory wheezing. Cardiovascular: S1, S2, regular rate and rhythm. Distant heart sounds. Abdomen: Bowel sounds active. Abdomen is soft without tenderness. Large abdominal pannus with minimal erythema. Lower extremities show 3+ edema on the left leg and 4+ on the right. Right leg also has more warmth and redness. Const: Vital Signs, click to edit/add: Vital Signs - 24 hr 06/12/22 15:00 06/12/22 15:00 06/12/22 17:00 Temperature 98.3 F Pulse Rate 65 Pulse Rate [Left A pical] 67 67 Respiratory Rate 24 24 Blood Pressure [Le ft Arm] 128/69 Pulse Oximetry 94 Oxygen Delivery Me thod Room Air 06/12/22 19:00 06/12/22 23:00 06/12/22 23:00 Temperature 98.5 F Pulse Rate Pulse Rate [Left A pical] 71 68 68 Respiratory Rate 24 24 24 Blood Pressure [Le ft Arm] 105/58 L 120/80 Pulse Oximetry 92 94 Oxygen Delivery Me thod Room Air Room Air 06/13/22 00:55 06/13/22 02:50 06/13/22 07:00 Temperature 98.3 F Pulse Rate 67 Pulse Rate [Left A pical] 66 62 Respiratory Rate 24 18 Blood Pressure [Le ft Arm] 121/68 132/74 Pulse Oximetry 94 94 Oxygen Delivery Me thod Room Air Room Air 06/13/22 07:00 06/13/22 11:00 06/13/22 11:00 Temperature 98.3 F 98.3 F 98.3 F Pulse Rate Pulse Rate [Left A pical] 62 57 L 57 L Respiratory Rate 18 20 20 Blood Pressure [Le ft Arm] 132/74 122/68 122/68 Pulse Oximetry 94 93 93 Oxygen Delivery Me thod Room Air Room Air Room Air Labs Labs: Laboratory Results - last 24 hr 06/13/22 06/13/22 06/13/22 05:48 05:48 05:48 WBC 7.36 RBC 3.45 L Hgb 9.9 L Hct 34.3 L MCV 99 MCH 29 MCHC 29 L RDW Coeff of Klaus 19.9 H Plt Count 226 Neut % (Auto) 68.2 Lymph % (Auto) 24.9 [place] % (Auto) 6.5 Eos % (Auto) 0.1 Baso % (Auto) 0.0 Neut # (Auto) 5.02 Lymph # (Auto) 1.83 [place] # (Auto) 0.50 Eos # (Auto) 0.01 Baso # (Auto) 0.00 Abs Immat Gran (auto) 0.02 VBG pH 7.438 H VBG pCO2 55 H VBG pO2 38.1 VBG HCO3 37 H Sodium 143 Potassium 3.6 Chloride 98 Carbon Dioxide 35 H BUN 19 Creatinine 0.9 Estimated Creat Clear 95.29 Estimated GFR 99 Glucose 121 H Calcium 9.0 Troponin I < 0.01 L NT-Pro-B Natriuret Pep 2930 H
[2022-06-13] MEDS: NICOTINE 21 MG PATCH 1 PATCH TRANSDERMA (16:01)
[2022-06-13] MEDS: SODIUM CHLORIDE 0.9 % (FLUSH) 10 ML SYRINGE 5 ML IVF ×2 (16:01→21:31)
[2022-06-13] MEDS: IPRAT-ALBUT 0.5-2.5 MG/3 ML NEB 1 NEB IH (16:21)
[2022-06-13] MEDS: RIVAROXABAN 10 MG TABLET 20 MG PO (18:21)
[2022-06-13] MEDS: DOCUSATE SODIUM 100 MG CAPSULE PO (18:24)
--- NOTE | 2022-06-13 19:51 | PC.NURSE ---
End of shift-- Pleasant and cooperative, alert and oriented patient. VSS and pt is afebrile. SPO2 maintained >93% on RA. He c/o a mild headache this morning, but otherwise denied pain. CIWAs 0-3. LS coarse and diminished this morning with inspiratory wheezing noted this afternoon. Pt was given a neb with stated relief. He has an intermittent productive cough with whitish sputum. Telemetry shows rate controlled a fib. 3-4+ pitting edema noted in bilateral LE. He denied nausea and tolerated a regular, diabetic diet without difficulty. He did state that he hasn't had a BM for a few days and was given a Colace per standing orders. Blood sugars 103, 133 and 182. He was up to the bathroom and chair independently and tolerated it well. was at bedside this evening and appears loving and supportive. Report to STALIN Yan.
[2022-06-13] MEDS: MELATONIN 3 MG TABLET PO (21:31)
[2022-06-13] MEDS: ATORVASTATIN CALCIUM 40 MG TABLET PO (21:31)
[2022-06-14] VITALS (9 sets, daily range): BP systolic 112–146; BP diastolic 67–78; PULSE 51–80; RESP 20–22; TEMP 36.4–37; O2SAT 91–97
[2022-06-14] MEDS: CEFAZOLIN 1 GM in 0.9 % SODIUM CHLORIDE Mini-bag 100 ML IVPB ×3 (00:25→16:26)
[2022-06-14] MEDS: IPRAT-ALBUT 0.5-2.5 MG/3 ML NEB 1 NEB IH (00:41)
[2022-06-14] MEDS: DOCUSATE SODIUM 100 MG CAPSULE PO (03:31)
[2022-06-14 07:15] LABS: Chloride* 94 mmol/L (96-114); Potassium* 3.5 mmol/L (3.6-5.1); Sodium* 142 mmol/L (135-149)
[2022-06-14 07:18] LABS: Carbon Dioxide* 39 mmol/L (20-32); Creatinine* 0.8 mg/dL (0.5-1.5); Estimated Glomerular Filt Rate 103 ml/min
[2022-06-14 07:19] LABS: Blood Urea Nitrogen* 20 mg/dL (7-30); Calcium* 9.1 mg/dL (8.4-10.6); Glucose* 114 mg/dL (60-115)
--- NOTE | 2022-06-14 07:40 | PC.NURSE ---
: indep in room with walker. Pt up to BR 3x, ?not a lot of pee? with each trip. 1 Lg BM per pt, stated it was a ?workout?. Wheezes auscultated, neb given. BROOKLYN bandages to bilat LE. Encouraged pt to elevate LE.?Tele = Afib.
[2022-06-14] MEDS: allopurinoL 300 MG TABLET 450 MG PO (08:59)
[2022-06-14] MEDS: FUROSEMIDE 10 MG/ML inj 80 MG IVP ×2 (09:01→16:26)
[2022-06-14] MEDS: atenoloL 50 MG TABLET 100 MG PO (09:01)
[2022-06-14] MEDS: predniSONE 20 MG TABLET 60 MG PO (09:01)
[2022-06-14] MEDS: SODIUM CHLORIDE 0.9 % (FLUSH) 10 ML SYRINGE 5 ML IVF ×2 (09:02→23:30)
[2022-06-14] MEDS: POTASSIUM BICARB 25 MEQ EFFERVESCENT TAB 50 MEQ PO (14:45)
--- NOTE | 2022-06-14 15:50 | PC.NURSE ---
Pt remains in atrial fibrillation. Activity improved since admission on the 11 of June. Froylan updated on pt's BG values and progress. Eval by Dr. Zhao. New orders for IV lasix 80 mg and 50 mEq of KCL effervescent drink. Pt had over 1400 cc out in urine s/p lasix challenge. Please see eMar for other medications provided on day shift. Report to Kenyetta Vasquez RN for evening shift.
[2022-06-14] MEDS: NICOTINE 21 MG PATCH 1 PATCH TRANSDERMA (16:26)
--- NOTE | 2022-06-14 16:27 | PM.IMPN1 ---
Progress Note: A&P Assessment and plan (1) Dyspnea: Problem details: Multifactorial: COPD exacerbation, presumed CHF and MIRANDA, morbid obesity. Continue current treatments as he is improving Status: Acute (2) COPD (chronic obstructive pulmonary disease): Problem details: Gold 2B per Pulmonology. Inhaled bronchodilators and systemic corticosteroids Status: Acute (3) Atrial fibrillation: Problem details: New diagnosis 06/11, rate controlled. Xarelto initiated 06/11. Status: Acute (4) Non-insulin dependent diabetes mellitus: Problem details: last A1C 5.6 (08/2021) Status: Acute (5) Essential hypertension: Problem details: Well controlled on current medications. Amlodipine held to allow some blood pressure room for aggressive diuresis. Status: Acute (6) Normocytic anemia: Problem details: Anemia is somewhat progressive. Continue to monitor. Will need outpatient workup for this. Status: Acute (7) Lower extremity edema: Problem details: Lymphedema needs compression and elevation primarily. Secondarily ongoing diuresis. Status: Acute (8) Cellulitis of right anterior lower leg: Problem details: Ancef initiated 06/11. Transition to oral cephalosporin at discharge Status: Acute Plan Continue in hospital for ongoing aggressive diuresis and monitoring of vital signs. Discussed need for chronic management strategies for lymphedema as well as dyspnea COPD and CHF Time Spent With Patient Total time spent: Total time spent today is 40 minutes, 30 minutes in coordination of care and discussing with patient and other providers management of edema heart failure and COPD Subjective Date Seen: 06/14/22 Interval history: 56-year-old male seen in followup of dyspnea, COPD exacerbation, heart failure, edema, cellulitis. Patient reports feeling a little better today he thinks his breathing is a little better. His edema is a little better. Not having any fever. Exam Narrative: Exam Narrative: He is alert and appears in no distress. Respirations are clear to auscultation. Diminished breath sounds but no significant wheezing and no rales. Cardiovascular: S1, S2, irregular rate and rhythm. No murmur gallop or rub. Abdomen: Bowel sounds active. No tenderness. Extremities with 3+ edema bilaterally. Erythema is significantly improved Const: Vital Signs, click to edit/add: Vital Signs - 24 hr 06/13/22 18:40 06/13/22 20:19 06/13/22 20:20 Temperature 98 F 98 F Pulse Rate 67 Pulse Rate [Left A pical] 84 84 Pulse Rate [Right Pulse Oximeter] Respiratory Rate 18 18 Blood Pressure [Le ft Arm] 122/64 122/64 Blood Pressure [Ri ght Arm] Pulse Oximetry 95 95 Oxygen Delivery Me thod Room Air Room Air 06/13/22 23:00 06/13/22 23:00 06/14/22 00:00 Temperature Pulse Rate Pulse Rate [Left A pical] 65 65 Pulse Rate [Right Pulse Oximeter] 65 65 Respiratory Rate 22 22 22 Blood Pressure [Le ft Arm] Blood Pressure [Ri ght Arm] 139/73 139/73 Pulse Oximetry 91 91 Oxygen Delivery Me thod Room Air Room Air 06/13/22 23:00 06/14/22 03:00 06/14/22 03:48 Temperature 98.3 F 98.3 F Pulse Rate 65 Pulse Rate [Left A pical] 65 Pulse Rate [Right Pulse Oximeter] 73 73 Respiratory Rate 22 22 Blood Pressure [Le ft Arm] Blood Pressure [Ri ght Arm] 146/69 H 146/69 H Pulse Oximetry 91 91 Oxygen Delivery Me thod Room Air Room Air 06/14/22 07:35 06/14/22 07:35 06/14/22 08:00 Temperature 97.9 F 97.9 F Pulse Rate 56 L Pulse Rate [Left A pical] 51 L 51 L Pulse Rate [Right Pulse Oximeter] Respiratory Rate 22 22 Blood Pressure [Le ft Arm] Blood Pressure [Ri ght Arm] 115/71 115/71 Pulse Oximetry 93 93 Oxygen Delivery Me thod Room Air Room Air 06/14/22 13:00 06/14/22 15:00 Temperature 98 F Pulse Rate 60 Pulse Rate [Left A pical] 61 Pulse Rate [Right Pulse Oximeter] 61 Respiratory Rate 20 Blood Pressure [Le ft Arm] Blood Pressure [Ri ght Arm] 112/78 Pulse Oximetry 94 Oxygen Delivery Me thod Room Air Labs Labs: Laboratory Results - last 24 hr 06/13/22 06/14/22 05:48 05:55 Imm/Tot Granulo (auto) Not Reportable Sodium 142 Potassium 3.5 L Chloride 94 L Carbon Dioxide 39 H BUN 20 Creatinine 0.8 Estimated Creat Clear 107.20 Estimated GFR 103 Glucose 114 Calcium 9.1
--- NOTE | 2022-06-14 17:10 | PC.NURSE ---
Verbal order received to cancel CIWA scoring on Facundo Real per Olena Lawton MD.
[2022-06-14] MEDS: POTASSIUM CHLORIDE 10 MEQ CAPSULE ER 20 MEQ PO (18:08)
[2022-06-14] MEDS: RIVAROXABAN 10 MG TABLET 20 MG PO (18:09)
[2022-06-14] MEDS: ATORVASTATIN CALCIUM 40 MG TABLET PO (20:39)
[2022-06-14] MEDS: MELATONIN 3 MG TABLET PO (20:39)
[2022-06-15] VITALS (8 sets, daily range): BP systolic 123–136; BP diastolic 62–87; PULSE 55–79; RESP 18–22; TEMP 36.4–37; O2SAT 90–96
[2022-06-15] MEDS: CEFAZOLIN 1 GM in 0.9 % SODIUM CHLORIDE Mini-bag 100 ML IVPB ×3 (00:13→15:44)
[2022-06-15] MEDS: IPRAT-ALBUT 0.5-2.5 MG/3 ML NEB 1 NEB IH (00:43)
[2022-06-15] MEDS: diphenhydrAMINE 25 MG CAPSULE PO (04:57)
--- NOTE | 2022-06-15 06:21 | PC.NURSE ---
23-07: pleasant. Pt hasn?t slept much the last 2 nights. At 0400 pt stated he was feeling anxious, pt was restless and unable to fall asleep. Daniel called, 25mg Benadryl ordered, didn?t offer much relief, pt unable to sleep. White noise machine provided, pt stated he likes it and would like to have one at home. VSS. O2 sats 90-95%, Encouraged Aerobika use. Legs rewrapped with BROOKLYN as needed.
[2022-06-15 07:28] LABS: Chloride* 91 mmol/L (96-114)
[2022-06-15 07:29] LABS: Potassium* 3.1 mmol/L (3.6-5.1); Sodium* 139 mmol/L (135-149)
[2022-06-15 07:31] LABS: Creatinine* 0.7 mg/dL (0.5-1.5); Est. Creatinine Clearance* 122.51; Estimated Glomerular Filt Rate 107 ml/min
[2022-06-15 07:32] LABS: Blood Urea Nitrogen* 20 mg/dL (7-30); Carbon Dioxide* 39 mmol/L (20-32); Glucose* 88 mg/dL (60-115)
[2022-06-15 07:34] LABS: Eosinophils Absolute Auto 0.02 K/uL (0.00-0.50); Eosinophils Percent Auto 0.3 % (0.0-7.0); Hemoglobin* 10.8 gm/dL (13.5-17.5); Immature Granulocytes Abs Auto 0.02 K/uL (0.00-0.30); Immature Granulocytes Pct Auto 0.3 %; Lymphocytes Absolute Auto 2.14 K/uL (0.90-2.90); Lymphocytes Percent Auto 27.8 % (20-44); Mean Corpuscular HGB Conc 29 gm/dL (32-36); Mean Corpuscular Hemoglobin 28 pg (26-34); Mean Corpuscular Volume 97 fL (80-100); Monocytes Percent Auto 6.6 % (0.0-11.0); Neutrophils Absolute Auto 5.01 K/uL (1.7-7.0); Platelet Count* 204 K/uL (140-440); RDW Coefficient of Variation % 18.8 % (11.5-15.5); Red Blood Count 3.82 m/uL (4.30-5.90)
[2022-06-15 07:35] LABS: Slide Review Reflex No
[2022-06-15] MEDS: predniSONE 20 MG TABLET 40 MG PO (08:20)
[2022-06-15] MEDS: POTASSIUM CHLORIDE 10 MEQ CAPSULE ER 20 MEQ PO (08:20)
[2022-06-15] MEDS: atenoloL 50 MG TABLET 100 MG PO (08:21)
[2022-06-15] MEDS: allopurinoL 300 MG TABLET 450 MG PO (08:22)
[2022-06-15] MEDS: FUROSEMIDE 10 MG/ML inj 80 MG IVP ×2 (08:23→15:43)
[2022-06-15] MEDS: SODIUM CHLORIDE 0.9 % (FLUSH) 10 ML SYRINGE 5 ML IVF ×2 (08:23→21:33)
[2022-06-15] MEDS: 0.9 % SODIUM CHLORIDE 250 ml IV (09:30)
[2022-06-15 11:23] LABS: Magnesium* 1.3 mg/dL (1.5-2.6)
[2022-06-15] MEDS: POTASSIUM BICARB 25 MEQ EFFERVESCENT TAB 50 MEQ PO ×2 (12:03→13:15)
--- NOTE | 2022-06-15 13:31 | PM.IMPN1 ---
Progress Note: A&P Assessment and plan (1) Dyspnea: Problem details: Multifactorial: COPD exacerbation, presumed CHF and MIRANDA, morbid obesity. Continue current treatments as he is improving Status: Acute (2) COPD (chronic obstructive pulmonary disease): Problem details: Gold 2B per Pulmonology. Inhaled bronchodilators and systemic corticosteroids. Much better today. Stop prednisone. Status: Acute (3) Atrial fibrillation: Problem details: New diagnosis 06/11, rate controlled. Xarelto initiated 06/11. Discussed anticoagulation with patient. He cannot afford Xarelto. Will switch to warfarin. Status: Acute (4) Electrolyte and fluid disorder: Problem details: Patient appears to be developing a contraction alkalosis as well as hypo magnesemia and hypokalemia as a sequelae of vigorous diuresis. This will limit the rate of diuresis. Replace needed electrolytes. Status: Acute (5) Non-insulin dependent diabetes mellitus: Problem details: last A1C 5.6 (08/2021) Status: Acute (6) Essential hypertension: Problem details: Well controlled on current medications. Amlodipine held to allow some blood pressure room for aggressive diuresis. Status: Acute (7) Normocytic anemia: Problem details: Anemia is somewhat progressive. Continue to monitor. Will need outpatient workup for this. Status: Acute (8) Lower extremity edema: Problem details: Lymphedema needs compression and elevation primarily. Secondarily ongoing diuresis. I explained to him that diuresis alone will not resolve his lymphedema problems Status: Acute (9) Cellulitis of right anterior lower leg: Problem details: Much better. Ancef initiated 06/11. Transition to oral cephalosporin at discharge Status: Acute Plan Continue in hospital for another day. Probable discharge home tomorrow for ongoing outpatient management of these medical problems. Time Spent With Patient Total time spent: Total time spent today is 50 minutes, 30 minutes in coordination of care discussing with patient and other providers management of anticoagulation, electrolytes and lymphedema Subjective Date Seen: 06/15/22 Interval history: 56-year-old male seen in followup of hospitalization for dyspnea, COPD, heart failure, lymphedema, leg cellulitis. Patient reports feeling better. It appears he has diuresed about 25 lb in the last 3 days. He notes the swelling in his legs is better. His breathing is a little better as well. No fever, chest pain. No other concerns today. Exam Narrative: Exam Narrative: He is alert appears in no distress. Speech is normal. Respirations are clear to auscultation. No wheezing today. Fair air exchange in all lung klein. Cardiovascular: S1, S2, irregularly irregular. Distant heart sounds. Abdomen is soft without tenderness or mass. Large abdominal pannus with edema. Lower extremities with elastic bandages wrapped. Three to 4+ edema Const: Vital Signs, click to edit/add: Vital Signs - 24 hr 06/14/22 15:00 06/14/22 15:00 06/14/22 15:00 Temperature 97.6 F Pulse Rate 60 Pulse Rate [Left A pical] 80 Pulse Rate [Right Pulse Oximeter] 80 Respiratory Rate 22 22 Blood Pressure [Ri ght Arm] 131/76 Pulse Oximetry 97 Oxygen Delivery Me thod Room Air 06/14/22 19:00 06/14/22 23:00 06/14/22 23:00 Temperature 98.6 F Pulse Rate 62 Pulse Rate [Left A pical] 67 Pulse Rate [Right Pulse Oximeter] 62 Respiratory Rate 22 22 Blood Pressure [Ri ght Arm] 125/67 Pulse Oximetry 96 Oxygen Delivery Me thod Room Air 06/14/22 23:00 06/15/22 01:50 06/15/22 03:00 Temperature 98.1 F 98 F Pulse Rate 60 Pulse Rate [Left A pical] Pulse Rate [Right Pulse Oximeter] 62 68 Respiratory Rate 22 22 Blood Pressure [Ri ght Arm] 133/75 130/65 Pulse Oximetry 93 91 Oxygen Delivery Me thod Room Air Room Air 06/15/22 07:00 Temperature Pulse Rate 55 L Pulse Rate [Left A pical] Pulse Rate [Right Pulse Oximeter] Respiratory Rate Blood Pressure [Ri ght Arm] Pulse Oximetry Oxygen Delivery Me thod Documenting provider has reviewed patient's vital signs: yes Labs Labs: Laboratory Results - last 24 hr 06/15/22 06/15/22 06:50 06:50 WBC 7.70 RBC 3.82 L Hgb 10.8 L Hct 37.0 MCV 97 MCH 28 MCHC 29 L RDW Coeff of Klaus 18.8 H Plt Count 204 Neut % (Auto) 65.0 Lymph % (Auto) 27.8 [place] % (Auto) 6.6 Eos % (Auto) 0.3 Baso % (Auto) 0.0 Neut # (Auto) 5.01 Lymph # (Auto) 2.14 [place] # (Auto) 0.50 Eos # (Auto) 0.02 Baso # (Auto) 0.00 Abs Immat Gran (auto) 0.02 Imm/Tot Granulo (auto) 0.3 Sodium 139 Potassium 3.1 L Chloride 91 L Carbon Dioxide 39 H BUN 20 Creatinine 0.7 Estimated Creat Clear 122.51 Estimated GFR 107 Glucose 88 Calcium 9.0 Magnesium 1.3 L
[2022-06-15] MEDS: WARFARIN 5 MG TABLET 10 MG PO (14:09)
--- NOTE | 2022-06-15 15:30 | PC.NURSE ---
Pt up independently to BR. SOB with exertion. Denies chest pain. Blood sugar with range of not needing Sliding Scale insulin. Education on new medications given to pt and . Both express understanding of protocol for Warfarin. Supported pt in continuing journey with abstaining from alcohol and smoking. Requests to have nicotine patch ordered at time of DC.
[2022-06-15] MEDS: NICOTINE 21 MG PATCH 1 PATCH TRANSDERMA (15:43)
[2022-06-15] MEDS: LOPERAMIDE HCL 2 MG CAPSULE PO (15:44)
[2022-06-15 17:09] LABS: C.Difficile Negative (Negative); CDIFFEPI 027 PRESUMPTIVE NEGATIVE (Negative)
[2022-06-15] MEDS: RIVAROXABAN 10 MG TABLET 20 MG PO (17:29)
[2022-06-15] MEDS: POTASSIUM CHLORIDE 10 MEQ CAPSULE ER 40 MEQ PO (17:29)
--- NOTE | 2022-06-15 18:40 | PC.NURSE ---
Shift [id number]- Patient is up independently in his room. He denies pain. He continues to have loose stools- immodium administered- see eMAR and stool sample collected- see lab results.
[2022-06-15] MEDS: ATORVASTATIN CALCIUM 40 MG TABLET PO (21:33)
[2022-06-15] MEDS: MELATONIN 3 MG TABLET PO ×2 (21:33)
[2022-06-16] MEDS: CEFAZOLIN 1 GM in 0.9 % SODIUM CHLORIDE Mini-bag 100 ML IVPB ×2 (01:40→07:56)
[2022-06-16 03:00] VITALS: BP 121/76; PULSE 69; RESP 18; TEMP 36.4; O2SAT 93
--- NOTE | 2022-06-16 05:05 | PC.NURSE ---
Shift note: Pt continuous to have bandages to both legs r/t edema. Pt complained of smaller amount of frequent BM. Pt is independent in room but needs assist 1 for ADL and ambulation wit GB. No SOB, pain and nausea noted.
[2022-06-16] MEDS: IPRAT-ALBUT 0.5-2.5 MG/3 ML NEB 1 NEB IH (06:13)
[2022-06-16 07:00] VITALS: BP 132/77; PULSE 57; PULSE 59; RESP 18; TEMP 36.5; O2SAT 91
[2022-06-16 07:27] LABS: INR 1.52 (0.91-1.10); Prothrombin Time 19.1 Seconds
[2022-06-16] MEDS: POTASSIUM CHLORIDE 10 MEQ CAPSULE ER 40 MEQ PO (07:56)
--- NOTE | 2022-06-16 08:53 | PM.DS1 ---
DS: Providers Provider Date Seen: 06/16/22 Date of admission: 06/11/22 17:43 Primary care physician: Adalid Osborne MD Admitting Clinician: Olena Lawton MD Attending Physician on discharge: Olena Lawton MD Date of Discharge: 06/16/22 DS: Diagnosis Discharge Diagnosis (1) Anasarca: Status: Acute Problem details: 20 kg weight loss with diuresis in the hospital. Discussed management of lymphedema. Recommend outpatient lymphedema clinic evaluation (2) COPD (chronic obstructive pulmonary disease): Status: Acute Problem details: Gold 2B per Pulmonology. Inhaled bronchodilators and systemic corticosteroids. COPD exacerbation on admission now resolved (3) Cellulitis of right anterior lower leg: Status: Acute Problem details: Cellulitis resolved. (4) Dyspnea: Status: Acute Problem details: Multifactorial: COPD exacerbation, presumed CHF and MIRANDA, morbid obesity. Continue current treatments as he is improving (5) Atrial fibrillation: Status: Acute Problem details: New diagnosis 06/11, rate controlled. Started on Xarelto but patient cannot afford it so switched to warfarin (6) Pulmonary hypertension: Status: Acute Problem details: Echo 06/12/2022 shows RVSP 47 mm Hg plus RAP (7) Heart failure with preserved ejection fraction, borderline, class III: Status: Acute Problem details: Echocardiogram on 06/12/2022 shows preserved ejection fraction of 60-65% with enlarged left ventricular cavity and moderately do strict right ventricular function and pulmonary hypertension with a pressure of 47 mmHg plus right atrial pressure (8) Normocytic anemia: Status: Acute Problem details: Mild stable anemia. Outpatient evaluation (9) MIRANDA (obstructive sleep apnea): Status: Acute Problem details: Clinical diagnosis based on observed snoring, morbid obesity, history of disrupted sleep. Needs formal sleep study. (10) Diarrhea: Status: Acute Problem details: Patient developed diarrhea probably from Ancef. Cellulitis is better so Ancef is stopped. C diff test is negative. DS: Summary Hospital Course Hospital Course: 56-year-old male admitted to the hospital with progressive dyspnea. The time of admission the dyspnea was felt to be multifactorial. He was felt to be in a COPD exacerbation as well as a heart failure exacerbation with anasarca. Massive lower extremity an abdominal pannus edema. He was seen to be in new atrial fibrillation. He was also felt to have a right lower extremity cellulitis. He was started on treatment for COPD with inhaled bronchodilators and systemic corticosteroids. His COPD got much better during his hospital stay and prednisone was discontinued. For his heart failure and anasarca he was treated with IV furosemide. He diuresed about 20 kg during his hospital stay. With this he had requirement for supplemental potassium and magnesium. He had an echocardiogram which showed preserved ejection fraction. He is also found to have pulmonary hypertension on echocardiogram. He was observed to have significant snoring during his hospital stay and is felt quite likely to have sleep apnea. Recommend outpatient evaluation of this. He was noted to have mild anemia which was stable. Recommend outpatient followup for this. Leg cellulitis was treated with cefazolin and it resolved during his hospital stay. He was continued on atenolol for his heart rate control. Anticoagulation was started with Xarelto then switch to warfarin for reasons of cost. He will need close outpatient follow-up to check his INR Status at Discharge Functional status at discharge: independent ambulation Overall status at discharge: patient is back to baseline Time Spent with Patient Time attestation: Total time spent providing and/or coordinating discharge services: Time spent: Greater than 30 minutes Exam Narrative: Exam Narrative: He is alert and appears in no distress. Respirations are clear to auscultation without wheezing rales or rhonchi. Cardiovascular: S1, S2, irregular rhythm. Distant heart sounds. Abdomen is nontender. Large abdominal pannus with ongoing edema noted. No cellulitis. Lower extremities with much improved edema. Right lower extremity erythema almost entirely resolved. Const: Vital Signs, click to edit/add: Vital Signs - 24 hr 06/15/22 11:00 06/15/22 15:10 06/15/22 16:29 Temperature 98.6 F 98.6 F Pulse Rate 71 Pulse Rate [Left A pical] 60 Pulse Rate [Right Pulse Oximeter] 67 Respiratory Rate 20 18 Blood Pressure [Le ft Arm] 136/79 Blood Pressure [Ri ght Arm] 133/75 Pulse Oximetry 93 96 Oxygen Delivery Me thod Room Air Room Air 06/15/22 20:00 06/15/22 23:00 06/15/22 23:00 Temperature 97.8 F Pulse Rate 61 Pulse Rate [Left A pical] 60 Pulse Rate [Right Pulse Oximeter] 79 79 Respiratory Rate 18 18 Blood Pressure [Le ft Arm] Blood Pressure [Ri ght Arm] 136/87 Pulse Oximetry 94 Oxygen Delivery Me thod Room Air 06/15/22 23:00 06/16/22 03:00 06/16/22 07:00 Temperature 97.6 F 97.6 F Pulse Rate 59 L Pulse Rate [Left A pical] Pulse Rate [Right Pulse Oximeter] 68 69 Respiratory Rate 18 18 Blood Pressure [Le ft Arm] Blood Pressure [Ri ght Arm] 130/73 121/76 Pulse Oximetry 90 93 Oxygen Delivery Me thod Room Air Room Air 06/16/22 07:00 06/16/22 07:00 Temperature 97.7 F Pulse Rate Pulse Rate [Left A pical] Pulse Rate [Right Pulse Oximeter] 57 L 57 L Respiratory Rate 18 18 Blood Pressure [Le ft Arm] Blood Pressure [Ri ght Arm] 132/77 Pulse Oximetry 91 Oxygen Delivery Me thod Room Air Documenting provider has reviewed patient's vital signs: yes DS: Data Data Completed and Pending Labs on day of discharge: Labs from last 24 hours 06/16/22 06/16/22 06/15/22 06:19 06:19 14:55 INR 1.52 H Sodium Pending Potassium Pending Chloride Pending Carbon Dioxide Pending BUN Pending Creatinine Pending Estimated GFR Pending Glucose Pending Calcium Pending Magnesium Pending Stl C.difficile Tox PCR Negative St C. diff Tox Epid 027 PRESUMPTIVE NEGATIVE 06/15/22 06:50 INR Sodium Potassium Chloride Carbon Dioxide BUN Creatinine Estimated GFR Glucose Calcium Magnesium 1.3 L Stl C.difficile Tox PCR St C. diff Tox Epid 027 Discharge Plan Discharge Disposition: Home, Self-Care Date of Admission: 06/11/22 17:43 Attending Provider on Discharge: Feliberto Zhao Primary Care Provider: Adalid Osborne Condition: Improved Anticipated Discharge Date/Time: 06/16/22 11:00 Discharge Medications: New nicotine 21 mg/24 hr Patch 24 Hour 1 patch transdermal Q24H Qty: 28 0RF albuterol sulfate [ProAir HFA] 90 mcg/actuation HFA aerosol inhaler 1 inh inhalation QID PRN (Reason: shortness of breath or wheezing) Qty: 8.5 0RF magnesium oxide 400 mg magnesium tablet 400 mg PO BID Qty: 60 0RF warfarin 5 mg tablet 5 mg PO DAILY Qty: 30 0RF potassium chloride 10 mEq capsule, extended release 40 meq PO BID Qty: 240 2RF torsemide 100 mg tablet 100 mg PO DAILY Qty: 30 2RF Continued allopurinol 300 mg tablet 450 mg PO DAILY amlodipine 10 mg tablet 10 mg PO DAILY atorvastatin 40 mg tablet 40 mg PO HS atenolol 100 mg tablet 100 mg PO DAILY Discontinued hydrochlorothiazide 25 mg tablet 25 mg PO DAILY Discharge Orders: Discharge Order (Routine); Ordered 06/16/22 Ordered By: Feliberto Zhao Patient Education: A-fib (Atrial Fibrillation) (ED) Additional Instructions: See your doctor on Saturday. You will need blood tests, INR and basic metabolic panel and magnesium at that time. Check your weight every day and keep a record of your weight. Talk to your doctor about sleep apnea evaluation. Wear compression stockings on your legs and elevate your legs whenever you are in bed or sitting in a chair Activity Level: Activity as Tolerated Discharge Diet: 2 gm Sodium Follow Up Appointments: Adalid Osborne MD [Primary Care Provider] - 06/18/22 11:20 am (With Dr. Osborne. Bring discharge paperwork to appointment. Labs will also need to be drawn for and INR at this appointment.) Forms: [employer] Info Instructions
[2022-06-16] MEDS: atenoloL 50 MG TABLET 100 MG PO (09:15)
[2022-06-16] MEDS: LOPERAMIDE HCL 2 MG CAPSULE PO (09:16)
[2022-06-16] MEDS: allopurinoL 300 MG TABLET 450 MG PO (09:16)
[2022-06-16] MEDS: FUROSEMIDE 10 MG/ML inj 80 MG IVP (09:16)
[2022-06-16] MEDS: SODIUM CHLORIDE 0.9 % (FLUSH) 10 ML SYRINGE 5 ML IVF (09:16)
[2022-06-16 10:10] LABS: Chloride* 92 mmol/L (96-114); Potassium* 3.8 mmol/L (3.6-5.1); Sodium* 143 mmol/L (135-149)
[2022-06-16 10:13] LABS: Blood Urea Nitrogen* 21 mg/dL (7-30); Creatinine* 0.8 mg/dL (0.5-1.5); Estimated Glomerular Filt Rate 103 ml/min
[2022-06-16 10:14] LABS: Calcium* 9.6 mg/dL (8.4-10.6); Carbon Dioxide* 39 mmol/L (20-32); Glucose* 91 mg/dL (60-115)
--- NOTE | 2022-06-16 10:22 | PC.NURSE ---
Pt pleasant and cooperative, A/Ox3. Aces re-wrapped to BLE. Cellulitis improving to RLE. 80mg Lasix given IV with potassium replacement. Pt steady on feet with walker in room. Pt continues to have loose stools/diarrhea - pt on abx and K+ and Cdiff is negative. Imodium given this AM for this.
--- NOTE | 2022-06-16 13:19 | PC.NURSE ---
d/c instructions reviewed with patient. Spouse then present at d/c and reviewed medications again. Pt verbalized understanding INR checks now being on warfarin and weight daily. pt discharged home with spouse at 1310.
== END 2022-06-16 13:10 | disposition home or self-care (01) | DRG 291 ==
LOC: ED 13:56 → MEDSURG 17:28
PROVIDERS: Family Medicine; Admitting Provider Family Medicine; Emergency Provider Emergency Medicine; PCP Family Medicine; Visit Provider Family Medicine
DX: I11.0 Hypertensive heart disease with heart failure (principal); I50.33 Acute on chronic diastolic (congestive) heart failure; J44.1 Chronic obstructive pulmonary disease with (acute) exacerbation; L03.115 Cellulitis of right lower limb; Z68.43 Body mass index [BMI] 50.0-59.9, adult; K52.1 Toxic gastroenteritis and colitis; T36.1X5A Adverse effect of cephalosporins and other beta-lactam antibiotics, initial encounter; R60.1 Generalized edema; I89.0 Lymphedema, not elsewhere classified; E66.01 Morbid (severe) obesity due to excess calories; G47.33 Obstructive sleep apnea (adult) (pediatric); I27.20 Pulmonary hypertension, unspecified; I48.91 Unspecified atrial fibrillation; E87.6 Hypokalemia; E11.9 Type 2 diabetes mellitus without complications; F10.90 Alcohol use, unspecified, uncomplicated; M10.9 Gout, unspecified; D64.9 Anemia, unspecified; M47.896 Other spondylosis, lumbar region; F17.210 Nicotine dependence, cigarettes, uncomplicated; E78.1 Pure hyperglyceridemia
CPT/HCPCS: 36415; 71260; 80048; 80053; 80076; 82803; 82947; 82962; 83605; 83735; 83880; 84439; 84443; 84484; 85025; 85379; 85610; 86140; 87493; 87635; 93005; 93306; 94640; 94664; 94761; 97110; 97162; 97165; 99284; 99285; A9270; J0690; J1940; J3475; J7050; J7512; Q9967; S4990

== ENCOUNTER 2023-05-14 11:13 | Outpatient (CLI) | payer MEDICARE, OTHER, SELFPAY | END 2023-05-14 11:14 | disposition home or self-care (01) | LOC: AMB 05-19 09:27 | PROVIDERS: PCP Family Medicine; Visit Provider Student in an Organized Health Care Education/Training Program | DX: R06.09 Other forms of dyspnea (principal) | CPT/HCPCS: A0425; A0427 ==

== ENCOUNTER 2023-05-14 11:43 | Inpatient (IN) | payer MEDICARE, OTHER, SELFPAY ==
[2023-05-14] VITALS (26 sets, daily range): BP systolic 117–155; BP diastolic 68–125; PULSE 63–76; RESP 20–36; TEMP 36.1–36.6; O2SAT 89–97; BMI 55.8
[2023-05-14 12:14] LABS: Appearance Urine Clear (Clear); Bilirubin Urine Negative (Negative); Blood Urine Trace-intact (Negative); Color Urine Yellow (Yellow); Glucose Urine Negative (Negative); Ketones Urine Negative (Negative); Leukocyte Esterase Urine Negative (Negative); Nitrite Urine Negative (Negative); Protein Urine Negative (Negative); Specific Gravity Urine 1.015 (1.000-1.030); Urobilinogen Urine 0.2 (0.2-1.0)
--- NOTE | 2023-05-14 12:20 | ED.NURSE ---
Pt O2 sats at ~88% on RA at rest. Placed on 2L O2 BUDDY. notified.
[2023-05-14 12:22] LABS: RBC Urine 0-2 (0-2)
[2023-05-14 12:23] LABS: Squamous Epithelial Cell Urine Few (None-Few); WBC Urine 0-2 (0-5)
--- NOTE | 2023-05-14 12:33 | CRLHL7_ITS ---
For Patients: As a result of the Century Cures Act, medical imaging exams and procedure reports are released immediately into your electronic medical record. You may view this report before your referring provider. If you have questions, please contact your health care provider. INDICATION: [id number]. TECHNIQUE: Chest 1 views. COMPARISON: None. FINDINGS: Cardiovascular and mediastinum: Prominent heart size accentuated by low lung volumes. Lungs and pleural spaces: Low lung volumes. Interstitial prominence. No sign of large pleural effusion. No pneumothorax. Bones and soft tissues: No significant findings. IMPRESSION: Low lung volumes with interstitial prominence, possibly pulmonary edema. Dictated by Ty Landa MD @ 05/14/2023 1:35:24 PM (Electronically Signed)
--- NOTE | 2023-05-14 12:38 | ED.SOB ---
HPI - SOB/Dyspnea General Chief Complaint: Shortness of Breath/Dyspnea Stated Complaint: difficulty breathing Time Seen by Provider: 05/14/23 11:48 History of Present Illness HPI Narrative: This 57-year-old male presented to clinic and was sent here for evaluation. There was no workup that was done at clinic. The patient is reporting that he has increased shortness of breath over the past month or so. He states that he has gained 50-60 lb over the past 6 months. He quit smoking a year ago. He has a history of COPD and congestive heart failure. He reports that he is drinking a L of vodka daily. His last drink was a couple days ago and he does not report any symptoms of withdrawal states that he does not suspect that he will have withdrawal symptoms. He does have some orthopnea symptoms and reports some anxiety when getting short of breath. He arrives with oximetry at 93% initially on room air but later had oximetry in the upper 80s% so he received nasal cannula oxygen at 2 L bringing his oximetry to 97%. He has large bilateral pedal edema. He does not report any chest pain. He states that he had symptoms like this about a year ago and was hospitalized for diuresis. This brought good relief to his symptoms. He is currently taking Lasix 40 mg daily but states that it does not seem to be working as effectively more recently. Related Data Home Medications Medication Instructions Recorded Confirmed allopurinol 300 mg tablet 450 mg PO DAILY 06/11/22 09/28/22 amlodipine 10 mg tablet 10 mg PO DAILY 06/11/22 09/28/22 atenolol 100 mg tablet 100 mg PO DAILY 06/11/22 09/28/22 atorvastatin 40 mg tablet 40 mg PO HS 06/11/22 09/28/22 Previous Rx's Medication Instructions Recorded albuterol sulfate 90 mcg/actuation 1 inh inhalation QID PRN shortness 06/15/22 aerosol inhaler (ProAir HFA) of breath or wheezing #8.5 grams magnesium oxide 400 mg PO BID #60 tabs 06/15/22 nicotine 21 mg/24 hr daily 1 patch transdermal Q24H #28 ea 06/15/22 transdermal patch potassium chloride 10 mEq 40 meq (4 x 10 mEq) PO BID #240 06/16/22 capsule,extended release caps torsemide 100 mg tablet 100 mg PO DAILY #30 tabs 06/16/22 warfarin 5 mg tablet 5 mg PO DAILY #30 tabs 06/16/22 Allergies Allergy/AdvReac Type Severity Reaction Status Date / Time No Known Drug Allergies Allergy Verified 09/28/22 09:54 Review of Systems Status of ROS: Reports: 10 or more systems reviewed and unremarkable except as noted in History and below Narrative: Constitutional: No fevers, no weight gain or loss. Eyes: No discharge. No vision changes. HENT: No congestion, no sore throat, no ear pain. Cardiovascular: No chest pain, no palpitations. Respiratory: Shortness of breath as described above. Gastrointestinal: No abdominal pain, no vomiting, no diarrhea. Genitourinary: No dysuria, no hematuria. Musculoskeletal: Normal range of motion. Large bilateral pedal edema. Skin: No rashes, no pruritis. Neurological: No dizziness, weakness, sensory change, speech change. Endo/Heme/Allergies: No bruising or bleeding. No polydipsia. Pysch: no suicidality, no insomnia. He reports some anxiety symptoms related to breathing. He takes 1 L of vodka daily with his last drink 2 days ago. All other systems reviewed and are negative. [facility] Medical History (Updated 05/14/23 @ 14:01 by Ulises Del Rio MD) MIRANDA (obstructive sleep apnea) ?G47.33 - Obstructive sleep apnea (adult) (pediatric) (ICD-10) Anasarca ?R60.1 - Generalized edema (ICD-10) Heart failure with preserved ejection fraction, borderline, class III ?I50.30 - Unspecified diastolic (congestive) heart failure (ICD-10) Pulmonary hypertension ?I27.20 - Pulmonary hypertension, unspecified (ICD-10) Tobacco use ?Z72.0 - Tobacco use (ICD-10) Hypertriglyceridemia ?E78.1 - Pure hyperglyceridemia (ICD-10) Degenerative joint disease (DJD) of lumbar spine ?M47.816 - Spondylosis without myelopathy or radiculopathy, lumbar region (ICD-10) COPD (chronic obstructive pulmonary disease) ?J44.9 - Chronic obstructive pulmonary disease, unspecified (ICD-10) Non-insulin dependent diabetes mellitus Gout ?M10.9 - Gout, unspecified (ICD-10) Essential hypertension ?I10 - Essential (primary) hypertension (ICD-10) Normocytic anemia ?D64.9 - Anemia, unspecified (ICD-10) Social History (Updated 09/28/22 @ 10:19 by Roberto Huertas MD) Highest level of school completed/degree received: high school graduate Smoking Status: Former smoker What tobacco products do you use: cigarettes Smoking packs per day: 2 Smoking cigarettes per day: 40.0 Years smoked: 42 Smoking pack-years: 84.00 Smoking quit date/years: <= 15 years ago Do you use any of these nicotine containing products: None Second hand tobacco smoke exposure: No How often do you have a drink containing alcohol: 4 or more times a week How many standard drinks containing alcohol do you have on a typical day: 10 or more How often do you have six or more drinks on one occasion: Daily or almost daily AUDIT-C Alcohol total score: 12 Non-prescribed substance use: denies use service: Yes Exam Narrative: Exam Narrative: Constitutional: Well-developed, well-nourished, no acute distress. HEENT: Normocephalic, atraumatic. Neck: Normal range of motion. Nontender. Supple. Heart: Regular. No murmurs. Normal rate. Intact distal pulses. Lungs: Clear to auscultation. No chest discomfort. Decreased air movement. No use of accessory muscles for breathing. He is speaking with 3-4 words at a time. Abdomen: Normal bowel sounds. Nontender. No rebound tenderness. Genitalia: Deferred. Back: No midline tenderness. Normal range of motion. Extremities: Normal range of motion. No injury. Skin: Intact. No rash. Warm. No erythema or pallor. Neurologic: No altered sensation. No weakness. Alert and oriented. Psychiatric: No suicidality. No anxiety or depression. No insomnia. Nursing notes and vitals signs are reviewed. Const: Vital Signs, click to edit/add: Vital Signs - 24 hr 05/14/23 12:04 05/14/23 12:05 05/14/23 12:09 Temperature 97.6 F Pulse Rate 74 72 Pulse Rate [Pulse Oximeter] 72 Respiratory Rate 36 H Blood Pressure 153/72 H Blood Pressure [Ri ght Upper Arm] 153/72 H Pulse Oximetry 93 93 92 Oxygen Delivery Me thod Room Air Oxygen Flow Rate 05/14/23 12:15 05/14/23 12:20 05/14/23 12:30 Temperature Pulse Rate 70 74 Pulse Rate [Pulse Oximeter] Respiratory Rate Blood Pressure Blood Pressure [Ri ght Upper Arm] Pulse Oximetry 89 92 95 Oxygen Delivery Me thod Nasal Cannula Nasal Cannula Oxygen Flow Rate 2 2 05/14/23 12:33 05/14/23 12:34 05/14/23 12:37 Temperature Pulse Rate 76 75 Pulse Rate [Pulse Oximeter] Respiratory Rate Blood Pressure 155/79 H Blood Pressure [Ri ght Upper Arm] Pulse Oximetry 97 95 95 Oxygen Delivery Me thod Nasal Cannula Nasal Cannula Oxygen Flow Rate 2 2 05/14/23 12:45 05/14/23 13:00 05/14/23 13:03 Temperature Pulse Rate 73 68 74 Pulse Rate [Pulse Oximeter] Respiratory Rate Blood Pressure 122/68 Blood Pressure [Ri ght Upper Arm] Pulse Oximetry 96 97 96 Oxygen Delivery Me thod Nasal Cannula Nasal Cannula Nasal Cannula Oxygen Flow Rate 2 2 2 05/14/23 13:04 05/14/23 13:30 05/14/23 13:33 Temperature Pulse Rate 74 70 72 Pulse Rate [Pulse Oximeter] Respiratory Rate Blood Pressure 137/69 Blood Pressure [Ri ght Upper Arm] Pulse Oximetry 96 94 95 Oxygen Delivery Me thod Nasal Cannula Nasal Cannula Nasal Cannula Oxygen Flow Rate 2 2 2 Course Vital Signs Vital signs: Initial Vital Signs Pulse Rate 74 05/14/23 12:04 Blood Pressure 153/72 H 05/14/23 12:04 Blood Pressure Mean 99 05/14/23 12:04 Pulse Oximetry 93 05/14/23 12:04 Vital Signs Pulse Rate 74 05/14/23 12:04 Blood Pressure 153/72 H 05/14/23 12:04 Pulse Oximetry 93 05/14/23 12:04 Temperature 97.6 F 05/14/23 12:09 Pulse Rate 72 05/14/23 13:33 Respiratory Rate 36 H 05/14/23 12:09 Blood Pressure 137/69 05/14/23 13:33 Pulse Oximetry 95 05/14/23 13:33 Oxygen Delivery Method Nasal Cannula 05/14/23 13:33 Oxygen Flow Rate 2 05/14/23 13:33 MDM - SOB/Dyspnea MDM Narrative Medical decision making narrative: This patient comes in with report of weight gain and worsening shortness of breath over the last month. He has very large pedal edema and history of CHF and COPD. He is taking Lasix but states that it does not seem to be working as well. An IV was established where he received 40 mg of Lasix. X-ray of the chest shows signs of pulmonary edema but no sign of infiltrate. Lab results returned with reassuring findings. His D-dimer is in normal range. His troponin is also negative. He is benefiting from nasal cannula oxygen at 2 L in order to maintain oximetry in the 90s%. Without this he dips down into the upper 80s. I spoke with Dr. Zhao who agrees to bring him in the hospital. He received an additional dose of 40 mg of Lasix intravenously and was also prescribed 50 mEq of sodium bicarb minute orally. Lab Data Labs: Lab Results 05/14/23 05/14/23 05/14/23 Range/Units 12:00 12:20 12:36 WBC 8.83 (4.50-11.00) K/uL RBC 3.93 L (4.30-5.90) m/uL Hgb 11.5 L (13.5-17.5) gm/dL Hct 38.6 (37.0-53.0) % MCV 98 (80-100) fL MCH 29 (26-34) pg MCHC 30 L (32-36) gm/dL RDW Coeff of Klaus 15.1 (11.5-15.5) % Plt Count 245 (140-440) K/uL Neut % (Auto) 79.4 H (42.0-72.0) % Lymph % (Auto) 13.8 L (20-44) % [place] % (Auto) 5.0 (0.0-11.0) % Eos % (Auto) 0.8 (0.0-7.0) % Baso % (Auto) 0.2 (0.0-3.0) % Neut # (Auto) 7.00 (1.7-7.0) K/uL Lymph # (Auto) 1.20 (0.90-2.90) K/uL [place] # (Auto) 0.40 (0.00-0.90) K/UL Eos # (Auto) 0.07 (0.00-0.50) K/uL Baso # (Auto) 0.02 (0.00-0.30) K/uL Abs Immat Gran (auto) 0.07 (0.00-0.30) K/uL Imm/Tot Granulo (auto) 0.8 % D-Dimer Quant (PE/DVT) < 0.27 (0.00-0.50) ug/ml Sodium 140 (135-149) mmol/L Potassium 4.1 (3.6-5.1) mmol/L Chloride 99 (96-114) mmol/L Carbon Dioxide 31 (20-32) mmol/L Anion Gap 10 (7-15) mEq/L BUN 18 (7-30) mg/dL Creatinine 0.8 (0.5-1.5) mg/dL Estimated GFR 102 ml/min Glucose 124 H (60-115) mg/dL Calcium 9.2 (8.4-10.6) mg/dL Total Bilirubin 0.9 (0.1-1.5) mg/dL Direct Bilirubin 0.3 (0.0-0.5) mg/dL AST 27 (12-35) U/L ALT 15 (4-50) U/L Alkaline Phosphatase 125 (40-150) U/L NT-Pro-B Natriuret Pep 2310 pg/mL Total Protein 7.7 (6.0-8.3) g/dL Albumin 4.0 (3.3-5.0) g/dL Urine Color Yellow (Yellow) Urine Appearance Clear (Clear) Urine pH 6.0 (5.0-8.5) Ur Specific [place] 1.015 (1.000-1.030) Urine Protein Negative (Negative) Urine Glucose (UA) Negative (Negative) Urine Ketones Negative (Negative) Urine Blood Trace-intact A (Negative) Urine Nitrite Negative (Negative) Urine Bilirubin Negative (Negative) Urine Urobilinogen 0.2 (0.2-1.0) Ur Leukocyte Esterase Negative (Negative) Urine RBC 0-2 (0-2) Urine WBC 0-2 (0-5) Ur Squamous Epith Cells Few (None-Few) Urine Bacteria None (None) Ethyl Alcohol < 0.01 L (0.01-0.03) % SARS-CoV-2 (PCR) Negative SARS-CoV-2 (Negative) Influenza Type A (PCR) Negative PCR FLU A (Negative) Influenza Type B (PCR) Negative PCR FLU B (Negative) POC Troponin I 0.00 L (0.01-0.04) ng/ml ECG Data Attestation: I personally reviewed and interpreted this ECG as follows: Interpretation: Normal sinus rhythm. Rate is 74 beats per minute. There are no specific ST or T-wave abnormalities. Discharge Plan Discharge Clinical Impression: CHF (congestive heart failure), COPD (chronic obstructive pulmonary disease) Patient Disposition: Admitted As Inpatient Condition: Unchanged Prescriptions: No Action allopurinol 300 mg tablet 450 mg PO DAILY amlodipine 10 mg tablet 10 mg PO DAILY atorvastatin 40 mg tablet 40 mg PO HS atenolol 100 mg tablet 100 mg PO DAILY nicotine 21 mg/24 hr Patch 24 Hour 1 patch transdermal Q24H Qty: 28 0RF albuterol sulfate [ProAir HFA] 90 mcg/actuation HFA aerosol inhaler 1 inh inhalation QID PRN (Reason: shortness of breath or wheezing) Qty: 8.5 0RF magnesium oxide 400 mg magnesium tablet 400 mg PO BID Qty: 60 0RF warfarin 5 mg tablet 5 mg PO DAILY Qty: 30 0RF potassium chloride 10 mEq capsule, extended release 40 meq PO BID Qty: 240 2RF torsemide 100 mg tablet 100 mg PO DAILY Qty: 30 2RF Follow Up/Referrals: Adalid Osborne MD [Primary Care Provider] -
[2023-05-14] MEDS: FUROSEMIDE 10 MG/ML inj 40 MG IVP ×2 (12:48→13:57)
[2023-05-14 12:50] LABS: Basophils Absolute Auto 0.02 K/uL (0.00-0.30); Basophils Percent Auto 0.2 % (0.0-3.0); Eosinophils Absolute Auto 0.07 K/uL (0.00-0.50); Eosinophils Percent Auto 0.8 % (0.0-7.0); Hematocrit 38.6 % (37.0-53.0); Hemoglobin* 11.5 gm/dL (13.5-17.5); Immature Granulocytes Abs Auto 0.07 K/uL (0.00-0.30); Immature Granulocytes Pct Auto 0.8 %; Lymphocytes Percent Auto 13.8 % (20-44); Mean Corpuscular HGB Conc 30 gm/dL (32-36); Mean Corpuscular Hemoglobin 29 pg (26-34); Mean Corpuscular Volume 98 fL (80-100); Neutrophils Percent Auto 79.4 % (42.0-72.0); Platelet Count* 245 K/uL (140-440); RDW Coefficient of Variation % 15.1 % (11.5-15.5); Red Blood Count 3.93 m/uL (4.30-5.90); White Blood Count* 8.83 K/uL (4.50-11.00)
[2023-05-14 12:54] LABS: Slide Review Reflex No
[2023-05-14 12:55] LABS: PCR FLU A Negative PCR FLU A (Negative); PCR FLU B Negative PCR FLU B (Negative)
[2023-05-14 12:56] LABS: Chloride* 99 mmol/L (96-114); Potassium* 4.1 mmol/L (3.6-5.1); Sodium* 140 mmol/L (135-149)
[2023-05-14 12:58] LABS: SARS PCR* Negative SARS-CoV-2 (Negative)
[2023-05-14 12:59] LABS: Blood Urea Nitrogen* 18 mg/dL (7-30); Carbon Dioxide* 31 mmol/L (20-32); Creatinine* 0.8 mg/dL (0.5-1.5); Estimated Glomerular Filt Rate 102 ml/min
[2023-05-14 13:00] LABS: Alkaline Phosphatase* 125 U/L (40-150); Aspartate Amino Transferase* 27 U/L (12-35); Bilirubin Direct* 0.3 mg/dL (0.0-0.5); Bilirubin Total* 0.9 mg/dL (0.1-1.5); Calcium* 9.2 mg/dL (8.4-10.6); Glucose* 124 mg/dL (60-115); Total Protein* 7.7 g/dL (6.0-8.3)
[2023-05-14 13:01] LABS: Alanine Aminotransferase* 15 U/L (4-50); Anion Gap 10 mEq/L (7-15)
[2023-05-14 13:08] LABS: D Dimer Quantitative* < 0.27 ug/ml (0.00-0.50)
[2023-05-14 13:11] LABS: NT Pro B Type NatriureticPept* 2310 pg/mL
--- NOTE | 2023-05-14 13:19 | ED.NURSE ---
Pt assisted to use commode to void. Pt is standby assist, able to stand and pivot on his own. Pt does need to sit on commode to urinate. Voided approx 400mls urine. Pt O2 desats to ~80% with exertion.
[2023-05-14 13:26] LABS: Ethanol* < 0.01 % (0.01-0.03)
[2023-05-14] MEDS: POTASSIUM BICARB 25 MEQ EFFERVESCENT TAB 50 MEQ PO (14:00)
--- NOTE | 2023-05-14 14:09 | ED.NURSE ---
Pt up to commode with standby assist. Voids ~500mLs urine.
[2023-05-14 14:22] LABS: Magnesium* 1.9 mg/dL (1.5-2.6)
--- NOTE | 2023-05-14 14:22 | ED.NURSE ---
Report called to M/S RN.
[2023-05-14] MEDS: PERFLUTREN LIPID MICROSPHERES 2 ML VIAL IV (15:54)
--- NOTE | 2023-05-14 17:04 | P.IMHP_ITS ---
Hospitalist- H&P: HPI History of Present Illness Date Seen: 05/14/23 Chief complaint: difficulty breathing Narrative: Facundo Real is a 57 year old male past medical history significant for heart failure with preserved ejection fraction, obstructive sleep apnea, anasarca, pulmonary hypertension, atrial fibrillation on chronic anticoagulation, COPD, prediabetes, hypertension, normocytic anemia, active alcohol use disorder is admitted to the medical floor from the ED for further management suspected heart failure exacerbation. Patient reports increasing shortness of breath over the past 2-3 months. In the past 6 weeks or so he has noticed increased swelling of his lower extremities. He reports a similar episode approximately 1 year ago. At that time (June 2022) he was hospitalized here and was diuresed. He tells me he remembers feeling better for maybe 3-4 months thereafter. He was initially vigilant in weighing himself daily but this eventually stopped. He has continued to take an oral diuretic. Does not follow a cardiac diet. Drinks typically 1 L of vodka d aily, sometimes more. Denies recent headache or dizziness. Denies chest pain. Has been short of breath but does not use oxygen at home. Used to use a nebulizer for COPD but has recently only been using inhalers. Was told at 1 time he should have a sleep study but did not follow through on that. Denies recent fevers or chills. Denies recent nausea vomiting or diarrhea. In the ED, patient received a total of 80 mg IV Lasix along with 50 mEq potassium bicarbonate. He reports increased urine output. Patient quit smoking 06/11/2022. Active daily alcohol use of 1 L vodka, sometimes more. Review of Systems Narrative: REVIEW OF SYSTEMS: Complete review of systems performed and negative unless otherwise stated in HPI or below. [facility] Medical History (Updated 05/14/23 @ 17:40 by Corinne Flores PA-C) MIRANDA (obstructive sleep apnea) ?G47.33 - Obstructive sleep apnea (adult) (pediatric) (ICD-10) Anasarca ?R60.1 - Generalized edema (ICD-10) Heart failure with preserved ejection fraction, borderline, class III ?I50.30 - Unspecified diastolic (congestive) heart failure (ICD-10) Pulmonary hypertension ?I27.20 - Pulmonary hypertension, unspecified (ICD-10) Tobacco use ?Z72.0 - Tobacco use (ICD-10) Hypertriglyceridemia ?E78.1 - Pure hyperglyceridemia (ICD-10) Degenerative joint disease (DJD) of lumbar spine ?M47.816 - Spondylosis without myelopathy or radiculopathy, lumbar region (ICD-10) COPD (chronic obstructive pulmonary disease) ?J44.9 - Chronic obstructive pulmonary disease, unspecified (ICD-10) Non-insulin dependent diabetes mellitus Gout ?M10.9 - Gout, unspecified (ICD-10) Essential hypertension ?I10 - Essential (primary) hypertension (ICD-10) Normocytic anemia ?D64.9 - Anemia, unspecified (ICD-10) Social History What is your current living situation?: I presently have a place to live Problems where you live: no known problems Problems where you live details: No issues In the past 12 months, utilities in danger of being shut off: no In past 12 months, lack of transportation kept you from medical appts, meetings, work, or getting things needed for daily living: yes In the past 12 mos, have been you worried that your food would run out before you had money to buy more?: never true In the past 12 mos, the food you bought just didn't last and you didn't have money to buy more?: never true Highest level of school completed/degree received: high school graduate Smoking Status: Former smoker What tobacco products do you use: cigarettes Smoking packs per day: 2 Smoking cigarettes per day: 40.0 Years smoked: 42 Smoking pack-years: 84.00 Smoking quit date/years: >15 years ago Do you use any of these nicotine containing products: None Second hand tobacco smoke exposure: No How often do you have a drink containing alcohol: 4 or more times a week Alcohol type: hard liquor Alcohol type details: Vodka- 1 liter a day How many standard drinks containing alcohol do you have on a typical day: 7 to 9 How often do you have six or more drinks on one occasion: Daily or almost daily AUDIT-C Alcohol total score: 11 Non-prescribed substance use: denies use Caffeine: No How often does anyone, including family, friends and others, physically hurt you : never How often does anyone, including family, friends and others, insult or talk down to you: never How often does anyone, including family, friends and others, threaten you with harm: never How often does anyone, including family, friends and others, scream or curse at you: never service: Yes Meds Home Medications and Allergies Home Medications Medication Instructions Recorded Confirmed Type allopurinol 300 mg tablet 450 mg PO DAILY 06/11/22 05/14/23 History amlodipine 10 mg tablet 10 mg PO DAILY 06/11/22 05/14/23 History atenolol 100 mg tablet 100 mg PO DAILY 06/11/22 05/14/23 History atorvastatin 40 mg tablet 40 mg PO HS 06/11/22 05/14/23 History glycopyrrolate 9 mcg-formoterol 2 inh inhalation BID 05/14/23 05/14/23 History 4.8 mcg HFA aerosol inhaler (Bevespi Aerosphere) ipratropium 0.5 mg-albuterol 3 mg 3 ml inhalation Q6-8H PRN 05/14/23 05/14/23 History (2.5 mg base)/3 mL nebulization soln levothyroxine 75 mcg tablet 75 mcg PO DAILY 05/14/23 05/14/23 History potassium chloride 20 mEq 20 meq PO .QD 05/14/23 05/14/23 History tablet,extended release(part/cryst) torsemide 20 mg tablet 40 mg PO .QD 05/14/23 05/14/23 History warfarin 1 mg tablet PO .QD 05/14/23 History Allergies Allergy/AdvReac Type Severity Reaction Status Date / Time No Known Drug Allergies Allergy Verified 09/28/22 09:54 Exam Narrative: Exam Narrative: PHYSICAL EXAM General: Sitting reclined in bed, pleasant, conversant, NAD HEENT: Normocephalic, atraumatic, sclera white, EOMI, oral mucosa moist Cardiovascular: IRRR. +3 pitting edema Pulmonary: Diffusely diminished with mild congestion, no expiratory wheezes, mild dyspnea on 2 L NC Abdominal: Soft, obese, nondistended, NTTP Neurological: Alert, answering questions appropriately, cranial nerves intact, no focal findings Extremities: No gross joint deformity. AROMI. Neurovascularly intact Skin: Warm, dry. Const: Vital Signs, click to edit/add: Vital Signs - 24 hr 05/14/23 12:04 05/14/23 12:05 05/14/23 12:09 Temperature 97.6 F Pulse Rate 74 72 Pulse Rate [Left R adial] Pulse Rate [Pulse Oximeter] 72 Respiratory Rate 36 H Blood Pressure 153/72 H Blood Pressure [Le ft Arm] Blood Pressure [Ri ght Upper Arm] 153/72 H Pulse Oximetry 93 93 92 Oxygen Delivery Me thod Room Air Oxygen Flow Rate 05/14/23 12:15 05/14/23 12:20 05/14/23 12:30 Temperature Pulse Rate 70 74 Pulse Rate [Left R adial] Pulse Rate [Pulse Oximeter] Respiratory Rate Blood Pressure Blood Pressure [Le ft Arm] Blood Pressure [Ri ght Upper Arm] Pulse Oximetry 89 92 95 Oxygen Delivery Me thod Nasal Cannula Nasal Cannula Oxygen Flow Rate 2 2 05/14/23 12:33 05/14/23 12:34 05/14/23 12:37 Temperature Pulse Rate 76 75 Pulse Rate [Left R adial] Pulse Rate [Pulse Oximeter] Respiratory Rate Blood Pressure 155/79 H Blood Pressure [Le ft Arm] Blood Pressure [Ri ght Upper Arm] Pulse Oximetry 97 95 95 Oxygen Delivery Me thod Nasal Cannula Nasal Cannula Oxygen Flow Rate 2 2 05/14/23 12:45 05/14/23 13:00 05/14/23 13:03 Temperature Pulse Rate 73 68 74 Pulse Rate [Left R adial] Pulse Rate [Pulse Oximeter] Respiratory Rate Blood Pressure 122/68 Blood Pressure [Le ft Arm] Blood Pressure [Ri ght Upper Arm] Pulse Oximetry 96 97 96 Oxygen Delivery Me thod Nasal Cannula Nasal Cannula Nasal Cannula Oxygen Flow Rate 2 2 2 05/14/23 13:04 05/14/23 13:30 05/14/23 13:33 Temperature Pulse Rate 74 70 72 Pulse Rate [Left R adial] Pulse Rate [Pulse Oximeter] Respiratory Rate Blood Pressure 137/69 Blood Pressure [Le ft Arm] Blood Pressure [Ri ght Upper Arm] Pulse Oximetry 96 94 95 Oxygen Delivery Me thod Nasal Cannula Nasal Cannula Nasal Cannula Oxygen Flow Rate 2 2 2 05/14/23 13:34 05/14/23 13:45 05/14/23 14:08 Temperature Pulse Rate 71 70 71 Pulse Rate [Left R adial] Pulse Rate [Pulse Oximeter] Respiratory Rate Blood Pressure Blood Pressure [Le ft Arm] Blood Pressure [Ri ght Upper Arm] Pulse Oximetry 97 93 91 Oxygen Delivery Me thod Nasal Cannula Nasal Cannula Nasal Cannula Oxygen Flow Rate 2 2 2 05/14/23 14:46 05/14/23 15:00 05/14/23 16:52 Temperature 97.5 F L Pulse Rate Pulse Rate [Left R adial] 73 Pulse Rate [Pulse Oximeter] Respiratory Rate 22 20 Blood Pressure Blood Pressure [Le ft Arm] 130/96 H Blood Pressure [Ri ght Upper Arm] Pulse Oximetry 95 95 93 Oxygen Delivery Me thod Nasal Cannula Room Air Nasal Cannula Oxygen Flow Rate 2 1 Hospitalist - H&P: Result Labs Labs: Short CBC 05/14/23 Range/Units 12:20 WBC 8.83 (4.50-11.00) K/uL Hgb 11.5 L (13.5-17.5) gm/dL Hct 38.6 (37.0-53.0) % Plt Count 245 (140-440) K/uL BMP 05/14/23 12:20 Sodium 140 Potassium 4.1 Chloride 99 Carbon Dioxide 31 BUN 18 Creatinine 0.8 Glucose 124 H Calcium 9.2 Liver Function 05/14/23 Range/Units 12:20 Total Bilirubin 0.9 (0.1-1.5) mg/dL Direct Bilirubin 0.3 (0.0-0.5) mg/dL AST 27 (12-35) U/L ALT 15 (4-50) U/L Alkaline Phosphatase 125 (40-150) U/L Albumin 4.0 (3.3-5.0) g/dL Urine 05/14/23 Range/Units 12:00 Urine Color Yellow (Yellow) Urine Appearance Clear (Clear) Urine pH 6.0 (5.0-8.5) Ur Specific [place] 1.015 (1.000-1.030) Urine Protein Negative (Negative) Urine Glucose (UA) Negative (Negative) ECG Attestation: I personally reviewed and interpreted this ECG as follows: Interpretation: Atrial fibrillation, ventricular rate 74, QTC 486 Imaging Chest x-ray: Radiologist's impression: Chest 1 views. COMPARISON: None. FINDINGS: Cardiovascular and mediastinum: Prominent heart size accentuated by low lung volumes. Lungs and pleural spaces: Low lung volumes. Interstitial prominence. No sign of large pleural effusion. No pneumothorax. Bones and soft tissues: No significant findings. IMPRESSION: Low lung volumes with interstitial prominence, possibly pulmonary edema. Assessment and Plan Assessment and plan (1) Heart failure with preserved ejection fraction, borderline, class III: Problem comment: -Echocardiogram 06/12/2022 shows preserved ejection fraction of 60-65% with enlarged left ventricular cavity and moderately do strict right ventricular function and pulmonary hypertension with a pressure of 47 mmHg plus right atrial pressure. Repeat echo pending. -CXR showing pulmonary edema -BNP 2310, previously 2930 -hold home torsemide -continue diuresis with Lasix 60 mg IV b.i.d., strict I&Os, daily weights (181kg on admission), potassium chloride b.i.d. -cardiac, 2 g sodium, diet -bilateral lower extremity compression wraps -monitor electrolytes -magnesium 1.9, 2 g IV Mag sulfate ordered, recheck in a.m. Status: Acute (2) Pulmonary hypertension: Problem comment: -echo pending, diuresis as above Status: Acute (3) Anasarca: Problem comment: -previous 20 kg weight loss with diuresis in the hospital 06/2022 -lower extremity compression wraps -follow-up outpatient lymphedema clinic Status: Acute (4) Atrial fibrillation: Problem comment: -rate controlled, telemetry -continue beta-sharon and warfarin, pharmacy to manage Status: Acute (5) COPD (chronic obstructive pulmonary disease): Problem comment: -dyspnea likely more related to heart failure exacerbation, continue to monitor -continue home inhalers, albuterol/DuoNebs p.r.n. -oxygen supplementation to maintain saturations > 80%, continue to wean as able -VBG ordered -consider RT consult if necessary Status: Acute (6) Alcohol use disorder, moderate, dependence: Problem comment: -last intake was 05/11/2023. Denies history of withdrawals or seizures -[facility] protocol -daily thiamine, folic acid, MVI Status: Acute (7) Non-insulin dependent diabetes mellitus: Problem comment: -patient has been told he is a prediabetic, most recent A1c 5.3 (02/2023) -encourage appropriate diet choices Status: Acute (8) Essential hypertension: Problem comment: -continue home medications, holding amlodipine during diuresis. Continue to monitor Status: Acute (9) Hypertriglyceridemia: Problem comment: -continue statin Status: Acute (10) Normocytic anemia: Problem comment: -hemoglobin 11.5, stable, monitor Status: Acute (11) MIRANDA (obstructive sleep apnea): Problem comment: -complicating above, has yet to follow through with formal sleep study Status: Acute Plan CODE: Full as discussed with patient VTE PPX: Warfarin, pharmacy to manage Disposition: Observation
[2023-05-14] MEDS: THIAMINE 100 MG TABLET PO (17:10)
[2023-05-14 17:27] LABS: HCO3 VBG 37 mmol/L (21-28); PCO2 VBG 46 mmHG (40-50); PO2 VBG 42.7 mmHG (25-47); pH VBG 7.513 (7.32-7.43)
[2023-05-14 17:52] LABS: INR 1.92 (0.91-1.10)
[2023-05-14] MEDS: WARFARIN 5 MG TABLET PO (18:28)
[2023-05-14] MEDS: IPRAT-ALBUT 0.5-2.5 MG/3 ML NEB 1 NEB IH (18:29)
[2023-05-14] MEDS: ACETAMINOPHEN 325 MG TABLET PO (18:31)
--- NOTE | 2023-05-14 19:01 | PC.NURSE ---
End of shift.. Patient arrived to the unit around 1445.. Alert and orientated presented to the clinic with SOB and O2 stats in the low 80's. Continuous pulse oximetry on, and Telemetry as well NSR w/ 1 degree block . CHF/COPD exacerbation. 3+ pitting edema in BLE. SBA w/ RW to BR. Magnesium is running via IV right now... BLE are wrapped because TEDS do not fit. SOB on exertion when up to the BR. Voiding well, Strict I and O. on warfarin.. not in therapeutic range. Will call appropriately. On 1 L NC.. and continuos pulse oximetry. Desaturates into the mid/low 80's when up to BR.
[2023-05-14] MEDS: SODIUM CHLORIDE 0.9 % (FLUSH) 10 ML SYRINGE 5 ML IVF (20:06)
[2023-05-14] MEDS: ATORVASTATIN CALCIUM 40 MG TABLET PO (20:06)
[2023-05-15] VITALS (9 sets, daily range): BP systolic 115–135; BP diastolic 54–74; PULSE 65–89; RESP 20–24; TEMP 36.7–36.9; O2SAT 90–94
--- NOTE | 2023-05-15 05:51 | PC.NURSE ---
SHIFT NOTE : Pt pleasant, A&O. Up SBA with a walker, SOB with exertion. On 1L O2 PNC with oxygen saturations in the low 90's. Afebrile. Denies pain, CP, and N/V. CIWA scores 1-7, no ativan needed.
[2023-05-15] MEDS: IPRAT-ALBUT 0.5-2.5 MG/3 ML NEB 1 NEB IH ×4 (06:12→23:34)
[2023-05-15] MEDS: LEVOTHYROXINE 75 MCG TABLET PO (06:12)
[2023-05-15] MEDS: POTASSIUM CHLORIDE 10 MEQ CAPSULE ER 20 MEQ PO (06:12)
[2023-05-15 06:53] LABS: Hematocrit 38.2 % (37.0-53.0); Hemoglobin* 11.3 gm/dL (13.5-17.5); Mean Corpuscular HGB Conc 30 gm/dL (32-36); Mean Corpuscular Hemoglobin 29 pg (26-34); Mean Corpuscular Volume 98 fL (80-100); Platelet Count* 240 K/uL (140-440); Red Blood Count 3.89 m/uL (4.30-5.90); White Blood Count* 8.34 K/uL (4.50-11.00)
[2023-05-15 07:08] LABS: Chloride* 98 mmol/L (96-114); INR 2.08 (0.91-1.10); Prothrombin Time 24.4 Seconds; Sodium* 140 mmol/L (135-149)
[2023-05-15 07:09] LABS: Potassium* 3.9 mmol/L (3.6-5.1)
[2023-05-15 07:11] LABS: Creatinine* 0.8 mg/dL (0.5-1.5); Est. Creatinine Clearance* 105.89; Estimated Glomerular Filt Rate 102 ml/min
[2023-05-15 07:12] LABS: Anion Gap 9 mEq/L (7-15); Blood Urea Nitrogen* 15 mg/dL (7-30); Carbon Dioxide* 33 mmol/L (20-32); Glucose* 95 mg/dL (60-115)
[2023-05-15 07:13] LABS: Slide Review Reflex No
[2023-05-15] MEDS: ACETAMINOPHEN 325 MG TABLET PO (07:41)
[2023-05-15] MEDS: FUROSEMIDE 10 MG/ML inj 80 MG IVP ×2 (08:14→16:39)
[2023-05-15] MEDS: MAGNESIUM OXIDE 400 MG TABLET PO ×2 (08:15→20:40)
[2023-05-15] MEDS: FOLIC ACID 1 MG TABLET PO (08:15)
[2023-05-15] MEDS: POTASSIUM CHLORIDE 10 MEQ CAPSULE ER 40 MEQ PO ×2 (08:15→17:20)
[2023-05-15] MEDS: allopurinoL 300 MG TABLET 450 MG PO (08:15)
[2023-05-15] MEDS: MULTIVITAMIN/MINERALS 1 TABLET 1 TAB PO (08:15)
[2023-05-15] MEDS: atenoloL 50 MG TABLET 100 MG PO (08:16)
[2023-05-15] MEDS: SODIUM CHLORIDE 0.9 % (FLUSH) 10 ML SYRINGE 5 ML IVF ×2 (08:16→20:41)
[2023-05-15] MEDS: SPIRONOLACTONE 25 MG TABLET PO (10:06)
--- NOTE | 2023-05-15 10:08 | PC.NURSE ---
PATIENT COOPERATIVE, FLAT AFFECT NOTED, ALERT AND ORIENTED, BLE PITTING EDEMA, [place] WRAPS APPLIED, UP WITH SBA WITH WALKER TO BATHROOM, SOB WITH REST AND WITH ACTIVITY, TOLERATING REGULAR DIET, VOIDING.
--- NOTE | 2023-05-15 11:24 | NUTR.NU ---
RDN with MD consult for heart failure. RDN attempted to visit with patient multiple times, however patient was unavailable. RDN will continue to attempt to visit at later date.
--- NOTE | 2023-05-15 15:34 | PC.SOCIAL ---
Met with pt to discuss discharge plans. Pt has assistance at home from his . Pt is not in need of any resources. Informed pt he can reach out to social work if anything is needed. Social work will follow up as needed.
--- NOTE | 2023-05-15 15:53 | PM.IMPN1 ---
Progress Note: A&P Assessment and plan (1) Heart failure with preserved ejection fraction, borderline, class III: Problem details: -heart failure exacerbation appears to have been coming on for a while. Unclear if there was any specific trigger to cause this. Patient reports good medication compliance. His sets up his medicines and he reports taking them regularly. I discussed with and the [place] acid he of him doing more close home monitoring of weight and symptoms to catch exacerbations earlier. At this time will provide IV diuretics and initiate spironolactone. Will hold the amlodipine to give some room for blood pressure with vigorous diuresis. Patient declines initiation of expensive guideline directed medical therapy. Status: Acute (2) Pulmonary hypertension: Status: Acute (3) Anasarca: Problem details: -previous 20 kg weight loss with diuresis in the hospital 06/2022 -lower extremity compression wraps -follow-up outpatient lymphedema clinic Status: Acute (4) Atrial fibrillation: Problem details: -rate controlled, telemetry -continue beta-sharon and warfarin, pharmacy to manage Status: Acute (5) COPD (chronic obstructive pulmonary disease): Problem details: -dyspnea likely more related to heart failure exacerbation, continue to monitor -continue home inhalers, albuterol/DuoNebs p.r.n. -oxygen supplementation to maintain saturations > 80%, continue to wean as able -VBG ordered -consider RT consult if necessary Status: Acute (6) Alcohol use disorder, moderate, dependence: Problem details: -last intake was 05/11/2023. Denies history of withdrawals or seizures -[facility] protocol -daily thiamine, folic acid, MVI No obvious signs of withdrawal so far on May 15 Status: Acute (7) Non-insulin dependent diabetes mellitus: Problem details: -patient has been told he is a prediabetic, most recent A1c 5.3 (02/2023) -encourage appropriate diet choices Status: Acute (8) Essential hypertension: Problem details: -continue home medications, holding amlodipine during diuresis. Continue to monitor Status: Acute (9) Hypertriglyceridemia: Problem details: -continue statin Status: Acute (10) Normocytic anemia: Problem details: -hemoglobin 11.5, stable, monitor Status: Acute (11) MIRANDA (obstructive sleep apnea): Problem details: -complicating above, has yet to follow through with formal sleep study. Urged him to get outpatient sleep study. Patient acknowledges very poor sleep likely from a number of problems Status: Acute Plan Continue in hospital for ongoing diuresis with intravenous furosemide. Close monitoring of blood pressure and electrolytes and renal function. Continue talk with patient about options for guideline directed medical therapy in optimizing heart failure management Time Spent With Patient Total time spent: Total time spent today is 50 minutes, 30 minutes in coordination of care discussing with patient and other providers management of heart failure acutely and chronically Subjective Date Seen: 05/15/23 Interval history: 57-year-old male with weeks to months of worsening dyspnea and edema admitted to the hospital with heart failure exacerbation. Patient was previously hospitalized here June of 2022 with similar concerns. He was doing well for several months but late this summer he notes that he has been having more and more dyspnea with activity. He was previously monitoring his weight but has been doing no weight monitoring recently. He does report that his edema seems to be getting worse as well. A year ago when I evaluated him, June 2022 we discussed management of his chronic medical problems. Due to financial concerns he was unable to afford Xarelto for his anticoagulation with AFib so was put on warfarin. He is taking warfarin 1 mg 5 days a week and 2.5 mg 2 days a week. He reports his warfarin requirements have been going down over the last couple months. He tells me he can not afford expensive medications and so is not interested in looking at guideline directed medical therapy for heart failure. He does report that he is compliant with taking his medications. He has atrial fibrillation and he has had adequate rate control. He has not any recent respiratory illness, fever, cough, chest pain. Echocardiogram was obtained showing a preserved ejection fraction of 69% with mildly increased left ventricular wall thickness. Right ventricular CAD a bit T is severely enlarged with global systolic right ventricular function moderately reduced. Moderate mitral regurgitation. [id number] tricuspid regurgitation. No other significant valvular disease. Exam Narrative: Exam Narrative: He is alert and appears in no distress. He gives his own history. Breathing is unlabored on supplemental oxygen. Oropharynx with small airway. Neck is supple without mass or adenopathy. Respirations with diminished breath sounds. No wheezing. Fair air exchange in all lung klein. A rare basilar crackle. Cardiovascular: S1, S2, relatively regular rhythm. Distant heart sounds. Abdomen is soft without tenderness. Lower extremities are wrapped with compression wrappings. Moderate edema bilaterally. Const: Vital Signs, click to edit/add: Vital Signs - 24 hr 05/14/23 16:52 05/14/23 17:00 05/14/23 18:15 Temperature 97.5 F L 97.0 F L Pulse Rate Pulse Rate [Left R adial] 73 74 Respiratory Rate 20 20 Blood Pressure [Le ft Arm] 150/74 H 150/77 H Pulse Oximetry 93 93 93 Oxygen Delivery Me thod Nasal Cannula Nasal Cannula Nasal Cannula Oxygen Flow Rate 1 1 1 05/14/23 20:02 05/14/23 20:02 05/14/23 23:00 Temperature 97.9 F 97.9 F Pulse Rate Pulse Rate [Left R adial] 75 75 Respiratory Rate 22 22 Blood Pressure [Le ft Arm] 154/125 H 154/125 H Pulse Oximetry 92 92 90 Oxygen Delivery Me thod Nasal Cannula Nasal Cannula Oxygen Flow Rate 1 1 05/14/23 23:00 05/14/23 23:00 05/14/23 23:00 Temperature 97.8 F 97.8 F Pulse Rate Pulse Rate [Left R adial] 68 68 68 Respiratory Rate 22 22 22 Blood Pressure [Le ft Arm] 117/69 117/69 Pulse Oximetry 90 90 Oxygen Delivery Me thod Nasal Cannula Nasal Cannula Oxygen Flow Rate 1 1 05/14/23 23:29 05/15/23 03:00 05/15/23 03:00 Temperature 98.4 F 98.4 F Pulse Rate 63 Pulse Rate [Left R adial] 67 67 Respiratory Rate 22 22 Blood Pressure [Le ft Arm] 121/63 121/63 Pulse Oximetry 90 90 Oxygen Delivery Me thod Nasal Cannula Nasal Cannula Oxygen Flow Rate 1 1 05/15/23 07:00 05/15/23 07:00 05/15/23 07:00 Temperature 98.1 F Pulse Rate 79 Pulse Rate [Left R adial] 65 Respiratory Rate 24 Blood Pressure [Le ft Arm] 119/74 Pulse Oximetry 91 91 Oxygen Delivery Me thod Nasal Cannula Oxygen Flow Rate 1 05/15/23 07:00 05/15/23 11:00 05/15/23 11:00 Temperature 98.1 F 98.1 F Pulse Rate Pulse Rate [Left R adial] 65 89 89 Respiratory Rate 24 22 22 Blood Pressure [Le ft Arm] 123/71 123/71 Pulse Oximetry 92 92 Oxygen Delivery Me thod Nasal Cannula Nasal Cannula Oxygen Flow Rate 1 1 05/15/23 15:00 05/15/23 15:00 05/15/23 15:00 Temperature 98.1 F Pulse Rate 71 Pulse Rate [Left R adial] 69 Respiratory Rate 22 Blood Pressure [Le ft Arm] 115/70 Pulse Oximetry 94 94 Oxygen Delivery Me thod Nasal Cannula Oxygen Flow Rate 1 05/15/23 15:00 Temperature Pulse Rate Pulse Rate [Left R adial] 69 Respiratory Rate 22 Blood Pressure [Le ft Arm] Pulse Oximetry Oxygen Delivery Me thod Oxygen Flow Rate Labs Labs: Laboratory Results - last 24 hr 05/14/23 05/14/23 05/15/23 17:21 17:42 06:03 WBC 8.34 RBC 3.89 L Hgb 11.3 L Hct 38.2 MCV 98 MCH 29 MCHC 30 L Plt Count 240 INR 1.92 H 2.08 H VBG pH 7.513 H VBG pCO2 46 VBG pO2 42.7 VBG HCO3 37 H Sodium 140 Potassium 3.9 Chloride 98 Carbon Dioxide 33 H Anion Gap 9 BUN 15 Creatinine 0.8 Estimated Creat Clear 105.89 Estimated GFR 102 Glucose 95 Calcium 9.0 Magnesium 2.0 Lab Acknowledgement Test Added
[2023-05-15] MEDS: WARFARIN 2 MG TABLET PO (16:39)
[2023-05-15] MEDS: THIAMINE 100 MG TABLET PO (16:39)
--- NOTE | 2023-05-15 19:27 | PC.NURSE ---
End of shift note: Pt pleasant, A&O. Up SBA with a walker, SOB with exertion. On 1L O2 PNC with oxygen saturations in the low 90's. Afebrile. Denies pain, CP, and N/V. CIWA scores 0, no ativan needed. tolerating 2gm low sodium diet. Voiding well during diuresing. LE [place] wrapped.
[2023-05-15] MEDS: MELATONIN 3 MG TABLET PO (20:40)
[2023-05-15] MEDS: ATORVASTATIN CALCIUM 40 MG TABLET PO (20:40)
[2023-05-16] VITALS (7 sets, daily range): BP systolic 99–139; BP diastolic 54–71; PULSE 69–88; RESP 20–22; TEMP 36.4–37; O2SAT 90–93
[2023-05-16] MEDS: IPRAT-ALBUT 0.5-2.5 MG/3 ML NEB 1 NEB IH ×4 (05:33→23:50)
[2023-05-16] MEDS: LEVOTHYROXINE 75 MCG TABLET PO (05:33)
--- NOTE | 2023-05-16 06:25 | PC.NURSE ---
End of shift: A&O pleasant and cooperative. VSS. Titrated to 0.5L of oxygen overnight to maintain sats at 88%. Pt complains of SOB w/ exertion. Denying pain. LS clear. SBA w/ walker to bathroom. Voiding large amounts. PRN melatonin given per pt request although pt was up for most of the night unable to sleep. [place] wraps to BLE. Uses call light appropriately.
[2023-05-16 06:52] LABS: INR 2.22 (0.91-1.10); Prothrombin Time 25.7 Seconds
[2023-05-16 07:41] LABS: Chloride* 96 mmol/L (96-114)
[2023-05-16 07:42] LABS: Potassium* 3.9 mmol/L (3.6-5.1); Sodium* 138 mmol/L (135-149)
[2023-05-16 07:44] LABS: Creatinine* 0.8 mg/dL (0.5-1.5); Est. Creatinine Clearance* 105.89; Estimated Glomerular Filt Rate 102 ml/min
[2023-05-16 07:45] LABS: Anion Gap 12 mEq/L (7-15); Blood Urea Nitrogen* 12 mg/dL (7-30); Calcium* 9.3 mg/dL (8.4-10.6); Carbon Dioxide* 30 mmol/L (20-32); Glucose* 98 mg/dL (60-115)
[2023-05-16] MEDS: POTASSIUM CHLORIDE 10 MEQ CAPSULE ER 40 MEQ PO ×2 (08:05→17:28)
[2023-05-16] MEDS: MAGNESIUM OXIDE 400 MG TABLET PO ×2 (09:40→21:15)
[2023-05-16] MEDS: atenoloL 50 MG TABLET 100 MG PO (09:40)
[2023-05-16] MEDS: FUROSEMIDE 10 MG/ML inj 80 MG IVP ×2 (09:40→16:17)
[2023-05-16] MEDS: allopurinoL 300 MG TABLET 450 MG PO (09:40)
[2023-05-16] MEDS: MULTIVITAMIN/MINERALS 1 TABLET 1 TAB PO (09:40)
[2023-05-16] MEDS: SODIUM CHLORIDE 0.9 % (FLUSH) 10 ML SYRINGE 5 ML IVF ×2 (09:41→21:15)
[2023-05-16] MEDS: FOLIC ACID 1 MG TABLET PO (09:41)
[2023-05-16] MEDS: SPIRONOLACTONE 25 MG TABLET PO (09:41)
--- NOTE | 2023-05-16 10:09 | NUTR.NU ---
RDN with MD consult for heart failure. Patient reports a good appetite and has been consuming 100% of most meals recorded since admission. Patient declined verbal education for designated caregiver and will pass along the handout provided. Patient and designated caregiver received diet education for heart failure on 06/13/22. Nutrition education provided on a low sodium diet related to congestive heart failure.? Verbal and written information provided. Recommend limiting sodium to 2,000 mg per day.? Discussed foods recommended and to avoid.? Handouts provided from [facility] on heart failure nutrition therapy, sodium content of foods, heart healthy label reading tips, sodium-free flavoring tips and heart healthy cooking and shopping tips.? Patient verbalized understanding and noted being familiar with this diet.?RDN's contact information was provided and patient was encouraged to call with questions.?
[2023-05-16] MEDS: polyethylene glycoL 3350 17 GM PACK PO (11:34)
--- NOTE | 2023-05-16 15:48 | P.IMPN_ITS ---
Progress Note: A&P Assessment and plan (1) Heart failure with preserved ejection fraction, borderline, class III: Problem details: -heart failure exacerbation appears to have been coming on for a while. Unclear if there was any specific trigger to cause this. Patient reports good medication compliance. His sets up his medicines and he reports taking them regularly. I discussed with and the [place] acid he of him doing more close home monitoring of weight and symptoms to catch exacerbations earlier. At this time will provide IV diuretics and initiate spironolactone. Will hold the amlodipine to give some room for blood pressure with vigorous diuresis. Patient declines initiation of expensive guideline directed medical therapy. Status: Acute (2) Pulmonary hypertension: Status: Acute (3) Anasarca: Problem details: -previous 20 kg weight loss with diuresis in the hospital 06/2022 -lower extremity compression wraps Recommend outpatient lymphedema Clinic and Outpatient compression stockings Status: Acute (4) Atrial fibrillation: Problem details: -rate controlled, telemetry -continue beta-sharon and warfarin, Status: Acute (5) COPD (chronic obstructive pulmonary disease): Problem details: -dyspnea likely more related to heart failure exacerbation, continue to monitor -continue home inhalers, albuterol/DuoNebs p.r.n. Status: Acute (6) Alcohol use disorder, moderate, dependence: Problem details: -last intake was 05/11/2023. Denies history of withdrawals or seizures -[facility] protocol -daily thiamine, folic acid, MVI No obvious signs of withdrawal so far on May 15 Status: Acute (7) Non-insulin dependent diabetes mellitus: Problem details: -patient has been told he is a prediabetic, most recent A1c 5.3 (02/2023) -encourage appropriate diet choices Status: Acute (8) Essential hypertension: Problem details: -continue home medications, holding amlodipine during diuresis. Continue to monitor Status: Acute (9) Hypertriglyceridemia: Problem details: -continue statin Status: Acute (10) Normocytic anemia: Problem details: -hemoglobin 11.5, stable, monitor Status: Acute (11) MIRANDA (obstructive sleep apnea): Problem details: -complicating above, has yet to follow through with formal sleep study. Urged him to get outpatient sleep study. Patient acknowledges very poor sleep likely from a number of problems Status: Acute Plan Continue in hospital for a IV diuresis and monitoring of vital signs. Possible discharge to home tomorrow if continued clinical improvement. Would benefit from more intensive outpatient management of lymphedema and heart failure. Patient is concerned about the cost of these things. Would also benefit from evaluation and treatment of sleep apnea. Time Spent With Patient Total time spent: Total time spent today is 40 minutes, 30 minutes in coordination of care and discussing with patient and other providers management heart failure and disposition Subjective Date Seen: 05/16/23 Interval history: 57-year-old male with weeks to months of worsening dyspnea and edema admitted to the hospital with heart failure exacerbation. Patient was previously hospitalized here June of 2022 with similar concerns. He was doing well for several months but late this summer he notes that he has been having more and more dyspnea with activity. He was previously monitoring his weight but has been doing no weight monitoring recently. He does report that his edema seems to be getting worse as well. A year ago when I evaluated him, June 2022, we discussed management of his chronic medical problems. Due to financial concerns he was unable to afford Xarelto for his anticoagulation with AFib so was put on warfarin. He is taking warfarin 1 mg 5 days a week and 2.5 mg 2 days a week. He reports his warfarin requirements have been going down over the last couple months. He tells me he can not afford expensive medications and so is not interested in looking at guideline directed medical therapy for heart failure. He does report that he is compliant with taking his medications. He has atrial fibrillation and he has had adequate rate control. He has not any recent respiratory illness, fever, cough, chest pain. Echocardiogram was obtained showing a preserved ejection fraction of 69% with mildly increased left ventricular wall thickness. Right ventricular CAD a bit T is severely enlarged with global systolic right ventricular function moderately reduced. Moderate mitral regurgitation. [id number] tricuspid regurgitation. No other significant valvular disease. Today he reports feeling a little better. He feels like the diuresis is working. He has no concerns today. He is weaned down on his oxygen to a 0.5 L per nasal cannula Exam Narrative: Exam Narrative: He is alert and appears in no distress. Small oropharynx. Respirations are clear to auscultation. Cardiovascular: S1, S2, regular rate and rhythm. Abdomen: Bowel sounds active. Abdomen is soft. He still has significant abdominal pannus. No significant skin breakdown under the pannus. Extremities with chronic edema. Const: Vital Signs, click to edit/add: Vital Signs - 24 hr 05/15/23 19:34 05/15/23 19:38 05/15/23 21:25 Temperature 98.5 F 98.5 F Pulse Rate 71 Pulse Rate [Left R adial] 69 Pulse Rate [Pulse Oximeter] 80 80 Respiratory Rate 22 22 Blood Pressure [Le ft Arm] 130/71 130/71 Pulse Oximetry 91 91 Oxygen Delivery Me thod Nasal Cannula Nasal Cannula Oxygen Flow Rate 1 1 05/15/23 23:00 05/15/23 23:00 05/15/23 23:08 Temperature 98.0 F 98.0 F Pulse Rate Pulse Rate [Left R adial] 69 Pulse Rate [Pulse Oximeter] 71 71 Respiratory Rate 20 20 Blood Pressure [Le ft Arm] 135/54 L 135/54 L Pulse Oximetry 90 90 90 Oxygen Delivery Me thod Nasal Cannula Nasal Cannula Oxygen Flow Rate 0.5 0.5 05/16/23 03:00 05/16/23 03:00 05/16/23 07:00 Temperature 97.6 F 97.6 F Pulse Rate 79 Pulse Rate [Left R adial] 69 Pulse Rate [Pulse Oximeter] 74 74 Respiratory Rate 20 20 Blood Pressure [Le ft Arm] 139/71 139/71 Pulse Oximetry 90 90 Oxygen Delivery Me thod Nasal Cannula Nasal Cannula Oxygen Flow Rate 0.5 0.5 05/16/23 07:00 05/16/23 07:00 05/16/23 07:00 Temperature 98.6 F Pulse Rate Pulse Rate [Left R adial] Pulse Rate [Pulse Oximeter] 77 77 Respiratory Rate 22 22 Blood Pressure [Le ft Arm] 110/69 Pulse Oximetry 90 90 Oxygen Delivery Me thod Nasal Cannula Oxygen Flow Rate 0.5 05/16/23 11:00 Temperature 97.5 F L Pulse Rate Pulse Rate [Left R adial] 79 Pulse Rate [Pulse Oximeter] 79 Respiratory Rate 20 Blood Pressure [Le ft Arm] 99/54 L Pulse Oximetry 90 Oxygen Delivery Me thod Nasal Cannula Oxygen Flow Rate 1 Documenting provider has reviewed patient's vital signs: yes Labs Labs: Laboratory Results - last 24 hr 05/16/23 06:09 INR 2.22 H Sodium 138 Potassium 3.9 Chloride 96 Carbon Dioxide 30 Anion Gap 12 BUN 12 Creatinine 0.8 Estimated Creat Clear 105.89 Estimated GFR 102 Glucose 98 Calcium 9.3
[2023-05-16] MEDS: THIAMINE 100 MG TABLET PO (16:17)
[2023-05-16] MEDS: WARFARIN 2 MG TABLET PO (16:29)
--- NOTE | 2023-05-16 18:59 | PC.NURSE ---
End of shift note: Pt pleasant, A&O. Up SBA with a walker, SOB with exertion. On 1L O2 PNC with oxygen saturations in the low 90's. Afebrile. Denies pain, CP, and N/V. tolerating 2gm low sodium diet. Voiding well during diuresing. LE [place]N wrapped rewrapped.
[2023-05-16] MEDS: SENNOSIDES/DOCUSATE TABLET 1 TAB PO (21:14)
[2023-05-16] MEDS: ATORVASTATIN CALCIUM 40 MG TABLET PO (21:15)
--- NOTE | 2023-05-16 23:44 | PC.NURSE ---
End of Shift: Patient pleasant and cooperative. Afebrile. Denies pain. Up independently in room. Tolerating regular diet with no nausea. 1L NC to keep sats greater than 88%. CIWA 0.
[2023-05-17 03:00] VITALS: BP 121/63; PULSE 81; RESP 22; TEMP 37; O2SAT 93
[2023-05-17 03:40] VITALS: PULSE 80
--- NOTE | 2023-05-17 05:13 | PC.NURSE ---
Shift note: Pt has spent most of the night sitting in the recliner. Sleep pattern interrupted with frequency of micturition. Alert and oriented and able to make needs know. Pt is independent in room. At 0330, financial underwriter noted that the tele reading was A.fib with normal ventricular rate. EKG taken for MD assessment. Pt denied any pain. Vitally stable.
[2023-05-17] MEDS: IPRAT-ALBUT 0.5-2.5 MG/3 ML NEB 1 NEB IH ×2 (06:14→11:57)
[2023-05-17] MEDS: LEVOTHYROXINE 75 MCG TABLET PO (06:14)
[2023-05-17 07:00] VITALS: BP 121/72; PULSE 78; RESP 20; TEMP 36.6; O2SAT 93
[2023-05-17 07:46] LABS: Chloride* 96 mmol/L (96-114); Potassium* 4.1 mmol/L (3.6-5.1); Sodium* 139 mmol/L (135-149)
[2023-05-17 07:49] LABS: Anion Gap 12 mEq/L (7-15); Blood Urea Nitrogen* 13 mg/dL (7-30); Carbon Dioxide* 31 mmol/L (20-32); Creatinine* 0.9 mg/dL (0.5-1.5); Est. Creatinine Clearance* 94.13; Estimated Glomerular Filt Rate 98 ml/min
[2023-05-17 07:50] LABS: Calcium* 9.6 mg/dL (8.4-10.6); Glucose* 94 mg/dL (60-115)
[2023-05-17 07:56] LABS: Prothrombin Time 23.9 Seconds
[2023-05-17 07:57] LABS: INR 2.02 (0.91-1.10)
[2023-05-17] MEDS: TORSEMIDE 100 MG TABLET PO (08:36)
[2023-05-17] MEDS: allopurinoL 300 MG TABLET 450 MG PO (08:36)
[2023-05-17] MEDS: MAGNESIUM OXIDE 400 MG TABLET PO (08:36)
[2023-05-17] MEDS: POTASSIUM CHLORIDE 10 MEQ CAPSULE ER 40 MEQ PO (08:36)
[2023-05-17] MEDS: atenoloL 50 MG TABLET 100 MG PO (08:36)
[2023-05-17] MEDS: MULTIVITAMIN/MINERALS 1 TABLET 1 TAB PO (08:36)
[2023-05-17] MEDS: FOLIC ACID 1 MG TABLET PO (08:36)
[2023-05-17] MEDS: SPIRONOLACTONE 25 MG TABLET PO (08:37)
[2023-05-17 11:00] VITALS: BP 117/71; PULSE 82; RESP 20; TEMP 36.4; O2SAT 94
--- NOTE | 2023-05-17 12:25 | PM.DS1 ---
DS: Providers Provider Date Seen: 05/17/23 Date of admission: 05/15/23 13:00 Primary care physician: Adalid Osborne MD Admitting Clinician: Feliberto Zhao MD Attending Physician on discharge: Feliberto Zhao MD Date of Discharge: 05/17/23 DS: Diagnosis Discharge Diagnosis (1) Heart failure with preserved ejection fraction, borderline, class III: Status: Acute Problem details: -heart failure exacerbation appears to have been coming on for a while. Unclear if there was any specific trigger to cause this. Patient reports good medication compliance. His sets up his medicines and he reports taking them regularly. He has not been monitoring his weight however. During his hospital stay he was treated with furosemide 80 mg IV twice daily and spironolactone was added. Over the past 3 days he has had a diuresis of 10 kg. His daytime hypoxia has resolved. He would benefit from SGLT 2 medication for his heart failure. He is not interested due to cost. (2) Pulmonary hypertension: Status: Acute Problem details: Suspect obesity hypoventilation syndrome (3) Anasarca: Status: Acute Problem details: -previous 20 kg weight loss with diuresis in the hospital 06/2022 -lower extremity compression wraps Recommend outpatient lymphedema Clinic and Outpatient compression stockings (4) Atrial fibrillation: Status: Acute Problem details: -rate controlled, telemetry -continue beta-sharon and warfarin, Discussed restarting Eliquis but he cannot afford it (5) COPD (chronic obstructive pulmonary disease): Status: Acute Problem details: Acute on chronic dyspnea is likely primarily related to heart failure though COPD contributes. Continue home COPD treatment. (6) Alcohol use disorder, moderate, dependence: Status: Acute Problem details: Patient reports heavy alcohol use. No evidence of alcohol withdrawal during the hospital stay (7) Non-insulin dependent diabetes mellitus: Status: Acute Problem details: -patient has been told he is a prediabetic, most recent A1c 5.3 (02/2023) (8) Essential hypertension: Status: Acute Problem details: Amlodipine was discontinued while aggressively treating with diuretics. May require resumption of blood pressure medications as an outpatient (9) Hypertriglyceridemia: Status: Acute Problem details: -continue statin (10) Normocytic anemia: Status: Acute Problem details: -hemoglobin 11.5, stable, monitor (11) MIRANDA (obstructive sleep apnea): Status: Acute Problem details: Patient was hypoxic at night in the hospital. Initially this was treated as heart failure but now appears to be a chronic problem due to sleep apnea. -complicating above, has yet to follow through with formal sleep study. Urged him to get outpatient sleep study. Patient acknowledges very poor sleep likely from a number of problems (12) Obesity: Status: Acute Problem details: May 2023 BMI 52.7. Patient would be a good candidate for GLP 1 medications. Not currently interested due to cost DS: Summary Hospital Course Hospital Course: 57-year-old male with weeks to months of worsening dyspnea and edema admitted to the hospital with heart failure exacerbation. Patient was previously hospitalized here June of 2022 with similar concerns. He was doing well for several months but late this summer he notes that he has been having more and more dyspnea with activity. He was previously monitoring his weight but has been doing no weight monitoring recently. He does report that his edema seems to be getting worse as well. A year ago when I evaluated him, June 2022, we discussed management of his chronic medical problems. Due to financial concerns he was unable to afford Xarelto for his anticoagulation with AFib so was put on warfarin. He is taking warfarin 1 mg 5 days a week and 2.5 mg 2 days a week. He reports his warfarin requirements have been going down over the last couple months. He tells me he can not afford expensive medications and so is not interested in looking at guideline directed medical therapy for heart failure. He does report that he is compliant with taking his medications. He has atrial fibrillation and he has had adequate rate control. He has not any recent respiratory illness, fever, cough, chest pain. Echocardiogram was obtained showing a preserved ejection fraction of 69% with mildly increased left ventricular wall thickness. Right ventricular CAD a bit T is severely enlarged with global systolic right ventricular function moderately reduced. Moderate mitral regurgitation. [id number] tricuspid regurgitation. No other significant valvular disease. Patient is diuresed 10 kg during his hospital stay. Daytime hypoxia has resolved but still having episodes of hypoxia at night presumably secondary to sleep apnea. Status at Discharge Functional status at discharge: uses cane/walker Overall status at discharge: patient is progressing back to baseline Time Spent with Patient Time attestation: Total time spent providing and/or coordinating discharge services: Total time spent today is 40 minutes in coordination of care and discussing with patient ongoing management of heart failure, monitoring of weight, medication changes, need for outpatient follow-up and management of heart failure, need for sleep study, benefits of new or but more expensive medications for heart failure and weight loss and anticoagulation Exam Narrative: Exam Narrative: He is alert and appears in no distress. Breathing room air. Respirations are clear to auscultation. No wheezing rales or rhonchi. Cardiovascular: S1, S2, irregularly irregular. Abdomen is soft without tenderness. Extremities with still 2 to 3+ edema in both legs Const: Vital Signs, click to edit/add: Vital Signs - 24 hr 05/16/23 15:00 05/16/23 15:00 05/16/23 15:00 Temperature 98.0 F Pulse Rate 81 Pulse Rate [Pulse Oximeter] 78 Respiratory Rate 20 Blood Pressure [Le ft Arm] 109/62 Pulse Oximetry 93 93 Oxygen Delivery Me thod Nasal Cannula Oxygen Flow Rate 1 05/16/23 15:00 05/16/23 19:00 05/16/23 19:00 Temperature 98.3 F 98.3 F Pulse Rate Pulse Rate [Pulse Oximeter] 78 84 84 Respiratory Rate 20 22 22 Blood Pressure [Le ft Arm] 122/62 122/62 Pulse Oximetry 93 93 Oxygen Delivery Me thod Nasal Cannula Nasal Cannula Oxygen Flow Rate 1 1 05/16/23 20:29 05/16/23 23:00 05/16/23 23:00 Temperature 98.6 F Pulse Rate 88 Pulse Rate [Pulse Oximeter] 71 Respiratory Rate 22 Blood Pressure [Le ft Arm] 123/71 Pulse Oximetry 93 93 Oxygen Delivery Me thod Nasal Cannula Oxygen Flow Rate 1 05/16/23 23:00 05/16/23 23:00 05/17/23 03:00 Temperature 98.6 F Pulse Rate Pulse Rate [Pulse Oximeter] 71 81 Respiratory Rate 22 22 22 Blood Pressure [Le ft Arm] 121/63 Pulse Oximetry 93 93 Oxygen Delivery Me thod Nasal Cannula Nasal Cannula Oxygen Flow Rate 1 1 05/17/23 03:40 05/17/23 07:00 05/17/23 07:00 Temperature Pulse Rate 80 Pulse Rate [Pulse Oximeter] Respiratory Rate Blood Pressure [Le ft Arm] Pulse Oximetry 93 93 Oxygen Delivery Me thod Room Air Oxygen Flow Rate 05/17/23 07:00 05/17/23 07:00 Temperature 97.9 F 97.9 F Pulse Rate Pulse Rate [Pulse Oximeter] 78 78 Respiratory Rate 20 20 Blood Pressure [Le ft Arm] 121/72 121/72 Pulse Oximetry 93 93 Oxygen Delivery Me thod Room Air Room Air Oxygen Flow Rate Documenting provider has reviewed patient's vital signs: yes DS: Data Data Completed and Pending Labs on day of discharge: Labs from last 24 hours 05/17/23 06:25 INR 2.02 H Sodium 139 Potassium 4.1 Chloride 96 Carbon Dioxide 31 Anion Gap 12 BUN 13 Creatinine 0.9 Estimated Creat Clear 94.13 Estimated GFR 98 Glucose 94 Calcium 9.6 Discharge Plan Discharge Disposition: Home, Self-Care Date of Admission: 05/15/23 13:00 Attending Provider on Discharge: Feliberto Zhao Primary Care Provider: Adalid Osborne Condition: Unchanged Anticipated Discharge Date/Time: 05/17/23 10:00 Discharge Medications: New spironolactone 25 mg Tablet 25 mg PO DAILY Qty: 30 0RF multivitamin with folic acid [Thera] 400 mcg Tablet 1 tab PO DAILY Qty: 30 0RF Continued allopurinol 300 mg tablet 450 mg PO DAILY atorvastatin 40 mg tablet 40 mg PO HS atenolol 100 mg tablet 100 mg PO DAILY nicotine 21 mg/24 hr Patch 24 Hour 1 patch transdermal Q24H Qty: 28 0RF albuterol sulfate [ProAir HFA] 90 mcg/actuation HFA aerosol inhaler 1 inh inhalation QID PRN (Reason: shortness of breath or wheezing) Qty: 8.5 0RF magnesium oxide 400 mg magnesium tablet 400 mg PO BID Qty: 60 0RF warfarin 5 mg tablet 5 mg PO DAILY Qty: 30 0RF levothyroxine 75 mcg tablet 75 mcg PO DAILY warfarin 1 mg tablet PO .QD Rx Instructions: TAKE 2.5MG ON SATURDAY AND SATURDAY, 1MG ALL OTHER DAY ipratropium-albuterol 0.5 mg-3 mg(2.5 mg base)/3 mL solution for nebulization 3 ml inhalation Q6-8H PRN Bevespi Aerosphere 9-4.8 mcg HFA aerosol inhaler 2 inh inhalation BID Changed torsemide 20 mg tablet 80 mg PO .QD Qty: 60 0RF potassium chloride 10 mEq capsule, extended release 30 meq PO BID Qty: 180 2RF No Action amlodipine 10 mg tablet 10 mg PO DAILY torsemide 100 mg tablet 100 mg PO DAILY Qty: 30 2RF potassium chloride 20 mEq tablet,ER particles/crystals 20 meq PO .QD Discharge Orders: Discharge Order (Routine); Ordered 05/17/23 Ordered By: Feliberto Zhao Additional Instructions: Check your weight every day. If your weight increases by 2 lb in 1 day or 5 lb in a week you will need more torsemide. You likely have sleep apnea. Talk to your doctor about getting an evaluation for sleep apnea. There are medicines that can help your heart failure, help with weight loss and replace warfarin. As we discussed, these medicines are quite expensive but would likely improve your health and quality of life. Talk to your doctor about these options for managing her heart failure. Activity Level: Activity as Tolerated Discharge Diet: Heart Healthy (2 gm sodium, low fat) Follow Up Appointments: Adalid Osborne MD [Primary Care Provider] - (Follow-up next week with recheck of your breathing, blood pressure, basic metabolic panel,INR.) Forms: [employer] Info Instructions
--- NOTE | 2023-05-17 15:18 | PC.NURSE ---
Addendum entered by Lela Ahmadi RN 05/17/23 15:23: IV removed, catheter intact. Original Note: Discharge: Pt alert and cooperative. Up independently in room, continent, eats independently and tolerates diet well. Tolerating room air with saturation maintaining low 90s. Will be discharged to home today, waiting on ride from . Belongings form signed, discharge documentation reviewed and signed, patient verbalized understanding of discharge instructions.
== END 2023-05-17 15:51 | disposition home or self-care (01) | DRG 291 ==
LOC: ED 14:01 → MEDSURG 14:24
PROVIDERS: Physician Assistant; Admitting Provider Family Medicine; Emergency Provider Emergency Medicine Emergency Medical Services; PCP Family Medicine; Visit Provider Family Medicine
DX: I11.0 Hypertensive heart disease with heart failure (principal); I50.33 Acute on chronic diastolic (congestive) heart failure; E66.2 Morbid (severe) obesity with alveolar hypoventilation; Z68.43 Body mass index [BMI] 50.0-59.9, adult; I27.20 Pulmonary hypertension, unspecified; R60.1 Generalized edema; J44.9 Chronic obstructive pulmonary disease, unspecified; I48.91 Unspecified atrial fibrillation; Z79.01 Long term (current) use of anticoagulants; F10.20 Alcohol dependence, uncomplicated; Z72.0 Tobacco use; I10 Essential (primary) hypertension; D64.9 Anemia, unspecified; E78.1 Pure hyperglyceridemia; R06.02 Shortness of breath; I89.0 Lymphedema, not elsewhere classified; E11.9 Type 2 diabetes mellitus without complications
CPT/HCPCS: 36415; 71045; 80048; 80076; 81001; 82077; 82803; 83735; 83880; 84484; 85025; 85027; 85379; 85610; 87631; 93005; 93306; 94640; 94761; 99284; 99285; G0378; A9153; A9270; J1940; J3475; Q9957

== ENCOUNTER 2023-12-30 08:58 | Emergency (ER) | payer MEDICARE, OTHER, SELFPAY ==
[2023-12-30 09:05] VITALS: BP 133/84; PULSE 81; RESP 18; TEMP 35.9; O2SAT 95; BMI 51.5
--- NOTE | 2023-12-30 09:13 | ED_ITS ---
HPI - Skin/Abscess/Foreign Bdy General Time Seen by Provider: 09:13 Date Seen: 12/30/23 Chief complaint: Skin/Abscess/Foreign Body Stated complaint: skin irritation Time Seen by Provider: 12/30/23 09:12 Source: patient and RN notes reviewed Mode of arrival: ambulatory Limitations: no limitations History of Present Illness HPI narrative: This 58-year-old male is coming in with a complaint of itchy rash that is spreading. Is been present now for probably a month and a half. It started on his arms, it is now spreading to his axilla and groin. Does not really having in his chest or back at this point. It is on his lower extremities. He does have underlying alcohol use with some known liver disease, obstructive sleep apnea, congestive heart failure, atrial fibrillation on chronic Coumadin, diabetes. He has a history of lower extremity edema and even anasarca with hospitalization in 2021. He has noted no fevers with this. He resides with his , she has absolutely no rash. She did have shingles a while back but she has not gotten a rash of this nature. He is tried some [id number] pills. He is tried calamine, different lotions, hydrogen peroxide, soap and water. He is also put other appointments on there. No other changes in habits or products that he is aware of. Rash is itchy. There has been no fevers. He did call the clinic and was referred here as they could not get him in. MD complaint: rash Related Data Home Medications Medication Instructions Recorded Confirmed allopurinol 300 mg tablet 450 mg PO DAILY 06/11/22 12/30/23 amlodipine 10 mg tablet 10 mg PO DAILY 06/11/22 05/14/23 atenolol 100 mg tablet 100 mg PO DAILY 06/11/22 12/30/23 atorvastatin 40 mg tablet 40 mg PO HS 06/11/22 12/30/23 glycopyrrolate 9 mcg-formoterol 2 inh inhalation BID 05/14/23 05/14/23 4.8 mcg HFA aerosol inhaler (Bevespi Aerosphere) ipratropium 0.5 mg-albuterol 3 mg 3 ml inhalation Q6-8H PRN 05/14/23 05/14/23 (2.5 mg base)/3 mL nebulization soln levothyroxine 75 mcg tablet 75 mcg PO DAILY 05/14/23 12/30/23 potassium chloride 20 mEq 20 meq PO .QD 05/14/23 05/14/23 tablet,extended release(part/cryst) warfarin 1 mg tablet PO .QD 05/14/23 Previous Rx's Medication Instructions Recorded albuterol sulfate 90 mcg/actuation 1 inh inhalation QID PRN shortness 06/15/22 aerosol inhaler (ProAir HFA) of breath or wheezing #8.5 grams magnesium oxide 400 mg PO BID #60 tabs 06/15/22 torsemide 100 mg tablet 100 mg PO DAILY #30 tabs 06/16/22 warfarin 5 mg tablet 5 mg PO DAILY #30 tabs 06/16/22 multivitamin with folic acid 400 1 tab PO DAILY #30 tabs 05/17/23 mcg tablet (Thera) potassium chloride 10 mEq 30 meq (3 x 10 mEq) PO BID #180 05/17/23 capsule,extended release caps spironolactone 25 mg tablet 25 mg PO DAILY #30 tabs 05/17/23 torsemide 20 mg tablet 80 mg (4 x 20 mg) PO .QD #60 tabs 05/17/23 hydroxyzine HCl 25 mg tablet 25 mg PO TID PRN #20 tabs 12/30/23 Allergies Allergy/AdvReac Type Severity Reaction Status Date / Time No Known Drug Allergies Allergy Verified 12/30/23 09:09 Review of Systems Status of ROS: Reports: 6 or more systems reviewed and unremarkable except as noted in History and below [facility] Medical History Obesity ?E66.9 - Obesity, unspecified (ICD-10) MIRANDA (obstructive sleep apnea) ?G47.33 - Obstructive sleep apnea (adult) (pediatric) (ICD-10) Anasarca ?R60.1 - Generalized edema (ICD-10) Heart failure with preserved ejection fraction, borderline, class III ?I50.30 - Unspecified diastolic (congestive) heart failure (ICD-10) Pulmonary hypertension ?I27.20 - Pulmonary hypertension, unspecified (ICD-10) Tobacco use ?Z72.0 - Tobacco use (ICD-10) Hypertriglyceridemia ?E78.1 - Pure hyperglyceridemia (ICD-10) Degenerative joint disease (DJD) of lumbar spine ?M47.816 - Spondylosis without myelopathy or radiculopathy, lumbar region (ICD-10) COPD (chronic obstructive pulmonary disease) ?J44.9 - Chronic obstructive pulmonary disease, unspecified (ICD-10) Non-insulin dependent diabetes mellitus Gout ?M10.9 - Gout, unspecified (ICD-10) Essential hypertension ?I10 - Essential (primary) hypertension (ICD-10) Normocytic anemia ?D64.9 - Anemia, unspecified (ICD-10) Social History What is your current living situation?: I presently have a place to live Problems where you live: no known problems Problems where you live details: No issues In the past 12 months, utilities in danger of being shut off: no In past 12 months, lack of transportation kept you from medical appts, meetings, work, or getting things needed for daily living: yes In the past 12 mos, have been you worried that your food would run out before you had money to buy more?: never true In the past 12 mos, the food you bought just didn't last and you didn't have money to buy more?: never true Highest level of school completed/degree received: high school graduate Smoking Status: Former smoker What tobacco products do you use: cigarettes Smoking packs per day: 2 Smoking cigarettes per day: 40.0 Years smoked: 42 Smoking pack-years: 84.00 Smoking quit date/years: >15 years ago Do you use any of these nicotine containing products: None Second hand tobacco smoke exposure: No How often do you have a drink containing alcohol: 4 or more times a week A lcohol type: hard liquor Alcohol type details: Vodka- 1 liter a day How many standard drinks containing alcohol do you have on a typical day: 7 to 9 How often do you have six or more drinks on one occasion: Daily or almost daily AUDIT-C Alcohol total score: 11 Non-prescribed substance use: denies use Caffeine: No How often does anyone, including family, friends and others, physically hurt you : never How often does anyone, including family, friends and others, insult or talk down to you: never How often does anyone, including family, friends and others, threaten you with harm: never How often does anyone, including family, friends and others, scream or curse at you: never service: Yes Exam Const: Vital Signs, click to edit/add: Vital Signs - 24 hr 12/30/23 09:05 Temperature 96.7 F L Pulse Rate [Pulse Oximeter] 81 Respiratory Rate 18 Blood Pressure [Ri ght Upper Arm] 133/84 Pulse Oximetry 95 Oxygen Delivery Me thod Room Air This 4-year-old male is alert, interactive, no apparent distress. Patient is obese. Face is atraumatic, no rash, sclera clear, no icterus, conjugate gaze. Able speak in complete sentences. Neck is thick but no adenopathy, no thyromegaly masses or nodules. No rash on his neck. Lungs with some rhonchi but otherwise good air entry, able speak in complete sentences, no wheezing or crackles. No evidence of rash on his back. He is noting some axillary rash in do see some erythematous palpably roughened type rash without vesicles that is maculopapular in nature developing in the inferior axilla. Anterior chest wall non affected. Heart rate sounds normal, here no significant murmur, normal S1- S2. Abdomen is obese. On the dorsum of his forearms he has excoriations from scratching, underlying roughened type erythematous rash, spares the dorsum of his hands and fingers. Has the same on his anterior lower extremities. There is no vesicles, looks to be more nondescript. Some areas on the forearms have a little central punctate erythematous spot without vesicle and a little collarette of erythema. Some just look a little more scabbed. He certainly has sores from itching on his arms but I cannot say that they are ulcerated. Nothing looks infected at this time. The forearms does seem to wrap and encompass some of the volar surface as well. Documenting provider has reviewed patient's vital signs: yes Course Course ED Course: Reviewed with patient that I would like to see when he last had labs, he thinks he had them recently. He does note his INR was just recent. Would like to see where his liver enzymes and chemistries are. These should be redrawn if they have not been done recently. He is likely going to need to see Dermatology and have a biopsy based on my opinion looking at this rash. Looks to be more nondescript. Could be consistent with a scabies rash but his history does not support that. The fact that his has not contract did this rash in a month and a half really does not support an infectious etiology. I do suspect his underlying chronic medical issues are likely contributing here. Reevaluation(s) Time of Reevaluation #1: 09:40 Reevaluation #1: Reviewed with patient that we really should get updated blood work. His last chemistries were on September 20. His INR indeed was recently checked, on December 22 it was 3.9. Did review with him that pruritic rashes can be associated with diabetes, underlying disease processes such as liver disease. He ultim ately may need to see Dermatology and have a biopsy. Given that his has no rash or symptoms of this, really makes this unlikely to be something like scabies. Time of Reevaluation #2: 11:06 Reevaluation #2: Went in to talk to patient, he is on the phone with the colored liquid plastic applier's office. Will go back in a few minutes once he has completed his phone call with them. Consultations Consultation #1: Spoke with Liz MILLER from [facility]. They are going to be able to get this patient in this . We did discuss using a topical steroid but seeing that he is going to be seen this week, steroids could partially treat and confound a biopsy. We discussed managing symptoms with Zyrtec twice a day and Vistaril p.r.n.. She thought that just trying to treat his itching for the time being would be appropriate. Time: 10:45 Vital Signs Vital signs: Initial Vital Signs Temperature 96.7 F L 12/30/23 09:05 Temperature Source Temporal Artery Scan 12/30/23 09:05 Pulse Rate 81 12/30/23 09:05 Respiratory Rate 18 12/30/23 09:05 Blood Pressure 133/84 12/30/23 09:05 Blood Pressure Mean 100 12/30/23 09:05 Blood Pressure Position Sitting 12/30/23 09:05 Pulse Oximetry 95 12/30/23 09:05 Oxygen Delivery Method Room Air 12/30/23 09:05 Vital Signs Temperature 96.7 F L 12/30/23 09:05 Pulse Rate 81 12/30/23 09:05 Respiratory Rate 18 12/30/23 09:05 Blood Pressure 133/84 12/30/23 09:05 Pulse Oximetry 95 12/30/23 09:05 Oxygen Delivery Method Room Air 12/30/23 09:05 Temperature 96.7 F L 12/30/23 09:05 Pulse Rate 81 12/30/23 09:05 Respiratory Rate 18 12/30/23 09:05 Blood Pressure 133/84 12/30/23 09:05 Pulse Oximetry 95 12/30/23 09:05 Oxygen Delivery Method Room Air 12/30/23 09:05 MDM - Skin/Abscess/Foreign Bdy Lab Data Attestation: I reviewed the patient's lab results. Labs: Lab Results 12/30/23 Range/Units 09:51 WBC 10.78 (4.50-11.00) K/uL RBC 4.53 (4.30-5.90) m/uL Hgb 13.8 (13.5-17.5) gm/dL Hct 44.4 (37.0-53.0) % MCV 98 (80-100) fL MCH 31 (26-34) pg MCHC 31 L (32-36) gm/dL RDW Coeff of Klaus 15.3 (11.5-15.5) % Plt Count 207 (140-440) K/uL Neut % (Auto) 73.3 H (42.0-72.0) % Lymph % (Auto) 18.2 L (20-44) % [place] % (Auto) 5.6 (0.0-11.0) % Eos % (Auto) 1.4 (0.0-7.0) % Baso % (Auto) 0.6 (0.0-3.0) % Neut # (Auto) 7.90 H (1.7-7.0) K/uL Lymph # (Auto) 2.00 (0.90-2.90) K/uL [place] # (Auto) 0.60 (0.00-0.90) K/UL Eos # (Auto) 0.15 (0.00-0.50) K/uL Baso # (Auto) 0.06 (0.00-0.30) K/uL Abs Immat Gran (auto) 0.10 (0.00-0.30) K/uL Imm/Tot Granulo (auto) 0.9 % Sodium 139 (135-149) mmol/L Potassium 4.4 (3.6-5.1) mmol/L Chloride 100 (96-114) mmol/L Carbon Dioxide 30 (20-32) mmol/L Anion Gap 9 (7-15) mEq/L BUN 23 (7-30) mg/dL Creatinine 1.0 (0.5-1.5) mg/dL Estimated Creat Clear 86.22 Estimated GFR 86 ml/min Glucose 159 H (60-115) mg/dL Calcium 9.2 (8.4-10.6) mg/dL Total Bilirubin 1.1 (0.1-1.5) mg/dL Direct Bilirubin 0.4 (0.0-0.5) mg/dL AST 95 H (12-35) U/L ALT 53 H (4-50) U/L Alkaline Phosphatase 144 (40-150) U/L C-Reactive Protein 3.6 H (0.5-1.0) mg/dL Total Protein 8.9 H (6.0-8.3) g/dL Albumin 4.6 (3.3-5.0) g/dL Discharge Plan Discharge Clinical Impression: Pruritic erythematous rash Patient Disposition: Home, Self-Care Additional Instructions: Your follow up appointment is scheduled with [facility] on 01/01 with a 12:30pm appointment time. Please arrive at 12:15pm to complete paperwork. You will receive a reminder call from [facility] a day before your appointment. If you have any questions or need to reschedule, please call [phone]. [facility] [address] [place] [address] Until you are seen by Dermatology, will try to treat the itching from this rash. They will very likely need to do a biopsy to further figure out what this rash is. We will have you go on Zyrtec 10 mg twice daily which is sold [id number]. I have also written for hydroxyzine which has anti-itch properties. This can be sedating but may definitely help with the itching. Follow the prescription instruction and use the hydroxyzine as needed. Activity Level: Activity as Tolerated Prescriptions: New hydroxyzine HCl 25 mg tablet 25 mg PO TID PRNQty: 20 0RF No Action allopurinol 300 mg tablet 450 mg PO DAILY amlodipine 10 mg tablet 10 mg PO DAILY atorvastatin 40 mg tablet 40 mg PO HS atenolol 100 mg tablet 100 mg PO DAILY albuterol sulfate [ProAir HFA] 90 mcg/actuation HFA aerosol inhaler 1 inh inhalation QID PRN (Reason: shortness of breath or wheezing) Qty: 8.5 0RF magnesium oxide 400 mg magnesium tablet 400 mg PO BID Qty: 60 0RF warfarin 5 mg tablet 5 mg PO DAILY Qty: 30 0RF torsemide 100 mg tablet 100 mg PO DAILY Qty: 30 2RF levothyroxine 75 mcg tablet 75 mcg PO DAILY potassium chloride 20 mEq tablet,ER particles/crystals 20 meq PO .QD warfarin 1 mg tablet PO .QD Rx Instructions: TAKE 2.5MG ON SATURDAY AND SATURDAY, 1MG ALL OTHER DAY ipratropium-albuterol 0.5 mg-3 mg(2.5 mg base)/3 mL solution for nebulization 3 ml inhalation Q6-8H PRN Bevespi Aerosphere 9-4.8 mcg HFA aerosol inhaler 2 inh inhalation BID spironolactone 25 mg Tablet 25 mg PO DAILY Qty: 30 0RF multivitamin with folic acid [Thera] 400 mcg Tablet 1 tab PO DAILY Qty: 30 0RF torsemide 20 mg tablet 80 mg PO .QD Qty: 60 0RF potassium chloride 10 mEq capsule, extended release 30 meq PO BID Qty: 180 2RF Follow Up/Referrals: Adalid Osborne MD [Primary Care Provider] - Stand Alone Forms: [facility] Info Instructions
--- OUTSIDE RECORDS SUMMARY | 2023-12-30 09:26 | XMS_ITS | Clinical Summary ---
Author Name Unknown Organization [employer] [facility] Address [place], [place] [address] Care Team Providers Care Agricultural Real Estate Agent Name Role Phone Adalid Osborne MD Primary Care Provider Allergies Active Allergy Reactions Criticality Noted Date Comments Lisinopril Other - Describe In Comment Field 09/30/2019 Creatinine to 1.59, potassium to 5.4. Improved after stopping. Medications Medication Sig Dispensed Refills Start Date End Date Status albuterol-ipratrop ium (DUONEB) (2.5-0.5 mg) in 3 mL NEBULIZATION solutionIndication s:Chronic obstructive pulmonary disease, unspecified COPD type (HC) Inhale 3 mL via a nebulizer every 6 hours if needed for Shortness of Breath 1st choice. 540 mL 3 2 Active nicotine 21 mg/24 hr (NICODERM; HABITROL) 21 mg/24 hr patch APPLY 1 PATCH TOPICALLY TO THE SKIN EVERY 24 HOURS 2 Active triamcinolone (ARISTOCORT; KENALOG) 0.1 % creamIndications:R joana Apply topically to affected area(s) three times daily. As needed to rash. 45 g 2 Active torsemide (DEMADEX) 20 mg tabletIndications: Heart failure with preserved ejection fraction, unspecified HF chronicity (HC) Take 4 Tablets (80 mg) by mouth once daily. 360 Tablet 3 3 Active albuterol HFA (PRO-AIR; VENTOLIN; PROVENTIL) 90 mcg/actuation inhalerIndications :Wheeze Inhale 1-2 Puffs by mouth every 4 hours if needed for Shortness Of Breath. 8.5 g 3 3 Active magnesium oxide (MAG-OX 400) 400 mg tabletIndications: Heart failure with preserved ejection fraction, unspecified HF chronicity (HC) TAKE 1 TABLET(400 MG) BY MOUTH TWICE DAILY 180 Tablet 2 4 Active allopurinoL (ZYLOPRIM) 300 mg tabletIndications: Gout of knee, unspecified cause, unspecified chronicity, unspecified laterality Take 1.5 Tablets (450 mg) by mouth once daily. 135 Tablet 3 4 Active atenoloL (TENORMIN) 100 mg tabletIndications: Essential hypertension Take 1 Tablet (100 mg) by mouth once daily. 90 Tablet 3 4 Active glycopyrrolate-for moteroL (Bevespi Aerosphere) inhalerIndications :Chronic obstructive pulmonary disease, unspecified COPD type (HC) Inhale 2 puffs by mouth twice daily. 5.9 g 3 4 Active levothyroxine (SYNTHROID) 75 mcg tabletIndications: Hypothyroidism (acquired) Take 1 Tablet (75 mcg) by mouth before breakfast. 90 Tablet 3 4 Active potassium chloride (Klor-Con M20) 20 mEq extended-release tablet (part/cryst)Indica tions:Heart failure with preserved ejection fraction, unspecified HF chronicity (HC) Take 1 Tablet (20 mEq) by mouth once daily with a meal. 90 Tablet 3 4 Active spironolactone (ALDACTONE) 25 mg tabletIndications: Acute diastolic CHF (congestive heart failure) (HC) Take 1 Tablet (25 mg) by mouth every morning. 90 Tablet 3 4 Active atorvastatin (LIPITOR) 40 mg tabletIndications: Hyperlipidemia, unspecified hyperlipidemia type TAKE 1 TABLET(40 MG) BY MOUTH EVERY DAY 90 Tablet 4 Active warfarin (COUMADIN) 5 mg tabletIndications: Paroxysmal atrial fibrillation (HC),Anticoagulati on monitoring, INR range 2-3 Not currently using 4 Active warfarin (COUMADIN) 1 mg tabletIndications: Paroxysmal atrial fibrillation (HC),Anticoagulati on monitoring, INR range 2-3 Take by mouth 1.5mg daily in the evening OR as directed 4 Active atorvastatin (LIPITOR) 40 mg tabletIndications: Hyperlipidemia, unspecified hyperlipidemia type Take 1 Tablet (40 mg) by mouth once daily. 90 Tablet 3 4 12/01/19 24 Discontinued warfarin (COUMADIN) 1 mg tabletIndications: Paroxysmal atrial fibrillation (HC),Anticoagulati on monitoring, INR range 2-3 Take by mouth; 1 mg (1 mg x 1) every Mon, Wed, Sat; 2.5 mg (5 mg x 0.5) all other days OR as directed 45 Tablet 1 4 12/04/19 24 Discontinued(Reo rder (E-cancel not sent)) warfarin (COUMADIN) 5 mg tabletIndications: Paroxysmal atrial fibrillation (HC),Anticoagulati on monitoring, INR range 2-3 Take by mouth 1 mg every Mon, Wed, Sat; 2.5 mg all other days OR as directed 4 12/04/19 24 Discontinued(Reo rder (E-cancel not sent)) warfarin (COUMADIN) 1 mg tabletIndications: Paroxysmal atrial fibrillation (HC),Anticoagulati on monitoring, INR range 2-3 Take by mouth 2.5 mg (5 mg x 0.5) every Sun, Tue, Fri; 1 mg (1 mg x 1) all other days in the evening OR as directed 4 12/23/19 24 Discontinued(Reo rder (E-cancel not sent)) warfarin (COUMADIN) 5 mg tabletIndications: Paroxysmal atrial fibrillation (HC),Anticoagulati on monitoring, INR range 2-3 Take by mouth 2.5 mg (5 mg x 0.5) every Sun, Tue, Fri; 1 mg (1 mg x 1) all other days in the evening OR as directed 4 12/23/19 24 Discontinued(Reo rder (E-cancel not sent)) Active Problems Problem Noted Date Diagnosed Date Pulmonary hypertension 06/18/2022 Paroxysmal atrial fibrillation 06/18/2022 Anticoagulation monitoring, INR range 2-3 2021 Heart failure with preserved ejection fraction 1 08/18/2021 Controlled type 2 diabetes m ellitus without complication, without long-term current use of insulin 10/25/2017 Tobacco abuse 08/27/2017 Acute diverticulitis of intestine 05/10/2015 Anemia, unspecified 05/10/2015 Lumbosacral spondylosis without myelopathy 12/25 Cervical spondylosis without myelopathy 12/26/19 08 Morbid obesity 11/20/2006 Gout, unspecified 11/20/2006 Personal history of tobacco use, presenting hazards to health 11/20/2006 HYPERTRIGLYCERIDEMIA 11/20/2006 Benign essential HTN 11/20/2006 Perforated diverticulum of large intestine Resolved Problems Problem Noted Date Diagnosed Date Resolved Date Abdominopelvic abscess 04/13/201809/06 Acute low back pain 05/10/2015 08/10/20 16 Acute renal failure 05/10/2015 09/06/19 22 Hyperglycemia 05/10/2015 08/10/2016 Tobacco use disorder 05/10/2015 016 Other abnormal glucose 11/20/200608/10 Encounters Date Type Department Care Team Description 12/23/2023 11:45 AM CDT Orders Only [facility] [address] [place] [address] [place] [place] [facility] 12/23/2023 Anticoagulation (warfarin) [facility] [address] [place] [address] 1, [place] Anticoagulation 12/23/2023 Travel 12/17/2023 Nurse Triage [facility] [address] [place] [address] Adalid Osborne MD Rash 12/04/2023 9:30 AM CDT Orders Only [facility] [address] [place] [address] Lab[facility] [place] [facility] 12/04/2023 Anticoagulation (warfarin) [facility] [address] [place] [address] 1, [place] [facility] Anticoagulation 12/04/2023 Travel 11/30/[address] [address] Adalid Osborne MD Refill Request (Atorvastatin) 11/02/2023 Refill [facility] [address] [place] [address] Adalid Osborne MD Refill Request (Allopurinol) 10/25/2023 9:45 AM CDT Orders Only [facility] [address] [place] [address] Lab[place] [facility] 10/25/2023 Anticoagulation (warfarin) [facility] [address] [place] [address] 1, [place] [facility] Anticoagulation 10/25/2023 Travel 10/19/2023 Refill [facility] [address] [place] [address] Adalid Osborne MD Refill Request (Warfarin) 10/04/2023 11:30 AM FLIGHT MECHANIC Orders Only [facility] [address] [place] [address] Lab[facility] [place] [facility] 10/04/2023 Anticoagulation (warfarin) [facility] [address] [place] [address] 1, [place] [facility] Anticoagulation 10/04/2023 Travel from Last 3 Months Immunizations Name Administration Dates Next Due COVID-19 Vaccine Spikevax (M oderna 50mcg/0.5mL) 12YO+ [id number] Formula PF 05/23/2023 COVID-19 vaccine (Pfizer-Bio NTech 30mcg/0.3mL) 12YO+ BIVALENT PF, MDV 07/02/2022 COVID-19 vaccine (Pfizer-Bio NTech 30mcg/0.3mL) 12YO+ INNA-SUCROSE PF, MDV 09/06/2021 COVID-19 vaccine (Pfizer-BioNTech 30mcg/0.3mL) P F, MDV 12/20/2020,11/29/2020 Family History Medical History Relation Name Comments Diabetes Father Other Father gout Other Mother Anesthesia Problem No Family History Relation Name Status Comments Father Mother Social History Tobacco Use Types Packs/Day Years Used Date Smoking Tobacco: Former Cigarettes 1 35 1 - 06/11/2022 Smokeless Tobacco: Never Tobacco Cessation:Counseling Given: No Comments:1/2 PPD 06/16/2019 Alcohol Use Standard Drinks/Week Comments No 2 (1 standard drink = 0.6 oz pur e alcohol) none PHQ-2 Answer Date Recorded PHQ-2 TOTAL SCORE 4 09/06/2021 Social Connections Answer Date Recorded Frequency of Communication with Friends and Fami ly 0 09/20/2023 Financial Resource Strain Answer Date R ecorded Difficulty of Paying Living Expenses 3 09/20/2023 Difficulty of Paying Living Expenses Not on file 09/20/2023 Food Insecurity Answer Date Recorded Worried About Running Out of Food in the Last Ye ar 1 09/20/2023 Transportation Needs Answer Date Record ed Lack of Transportation (Medical) 1 09/20/2023 Housing Stability Answer Date Recorded Unable to Pay for Housing in the Last Year 1 09/20/2023 Sex and Gender Information Value Date Recorded Sex Assigned at Not on file Gender Identity Not on file Sexual Orientation Not on file Obstetrics History Last Filed Vital Signs Vital Sign Reading Time Taken Comments Blood Pressure 122/81 09/20/2023 10:35 AM FLIGHT MECHANIC Pulse 80 09/20/2023 10:35 AM FLIGHT MECHANIC Temperature 36.7 ??C (98 ??F) 09/30/2019 11:50 AM FLIGHT MECHANIC Respiratory Rate 20 06/16/2019 7:44 AM FLIGHT MECHANIC Oxygen Saturation 95% 09/20/2023 10:35 AM FLIGHT MECHANIC Inhaled Oxygen Concentration - - Weight 173 kg (381 lb 6.4 oz) 09/20/2023 10:35 A M FLIGHT MECHANIC Height 180.7 cm (5' 11.14) 09/06/2021 10:13 AM FLIGHT MECHANIC Body Mass Index 52.98 09/06/2021 10:13 AM FLIGHT MECHANIC Plan of Treatment Upcoming Encounters Date Type Department Care Team (Late st Contact Info) Description 03/12/2024 11:15 AM CDT Orders Only [facility] [address] [place] [address] Lab[place] 03/19/2024 10:10 AM CDT Office Visit [facility] [address] [place] [address] Adalid Osborne MD [address] [place] [address] Health Maintenance Due Date Last Done Comments Pneumococcal series for age 6-64 (1 of 2 - PCV) 1969 Tdap 1974 Tetanus booster 1983 Colonoscopy through age 75 2008 Zoster (shingles) series for age 50+ (1 of 2) [address] (for lung CA) ag e 50-80 04/09/2019 04/09/2018 BMI (ht and wt on same day) for age 18+ 09/06/2022 09/06/2021, 08/24/2020, 09/30/2019, Additional history exists Depression screening for age 12+ 09/06/2022 09/06/2021, 08/24/2020, 08/03/2019, Additional history exists Influenza for age 50-64 04/12/2024 Lipids for age 45-75 06/20/2028 06/20/2023, 06/20/2023, 07/26/2022, Additional history exists Hepatitis C screening for ag e 18-79 Completed 08/10/2016 HIV for age 15-65 Completed 09/21/2022 COVID-19 vaccine series Completed 05/23/20, 07/02/2022, 09/06/2021, Additional history exists Procedures Procedure Name Priority Date/Time Associated Diagnosis Comments INR,POCT Routine 12/23/2023 11:44 AM CDT Paroxysmal atrial fibrillation (HC) Anticoagulation monitoring, INR range 2-3 INR,POCT Routine 12/04/2023 11:38 AM CDT Paroxysmal atrial fibrillation (HC) Anticoagulation monitoring, INR range 2-3 INR,POCT Routine 10/25/2023 9:47 AM CDT Paroxysmal atrial fibrillation (HC) Anticoagulation monitoring, INR range 2-3 PROTIME-INR STAT 10/04/2023 11:32 AM FLIGHT MECHANIC Paroxysmal atrial fibrillation (HC) Anticoagulation monitoring, INR range 2-3 LIPID PANEL W REFLEX MEASURED LDL Routine 06/20/2023 12:26 PM FLIGHT MECHANIC Hyperlipidemia, unspecified hyperlipidemia type LC HIV-1/O/2, 4TH GENERATION Routine 09/21/2022 11:15 AM FLIGHT MECHANIC Encounter for screening for HIV CT CHEST ABDOMEN PELVIS W Routine 04/09/2018 2:34 PM CDT Abdominal pain, generalized Bowel habit changes Tobacco abuse Coffee ground emesis ANTI HCV Routine 08/10/2016 11:44 AM FLIGHT MECHANIC Need for hepatitis C screening test from Last 3 Months or Most Recently Relevant to Health Maintenance Results * (ABNORMAL) INR,POCT (12/23/2023 11:44 AM CDT) Only the most recent of3 resultswithin the time period is included. INR 3.9(H) <1.3 12/23/2023 11:47 AM CDT [facility] Blood BLOOD SPECIMEN / Unknown 12/23/2023 11:44 AM CDT 12/23/2023 11:47 AM CDT Narrative [facility] - 12/23/2023 11:47 AM CDT ?Therapeutic Range 2.0-3.0 for most anticoagulated patients 2.5-3.5 or 4.0 for high risk patients Adalid Osborne MD LABORATORY Performing Organization Address City/State/[facility] Co de Phone Number [facility] [address] [place] [address], * (ABNORMAL) PROTIME-INR (10/04/2023 11:32 AM FLIGHT MECHANIC) INR 2.0(H) <1.3 10/04/2023 2:37 PM FLIGHT MECHANIC [facility] PROTIME 21.8(H) 10.3 - 12.3 sec 10/04/2023 2:37 PM FLIGHT MECHANIC [facility] Blood BLOOD SPECIMEN / Unknown Venipuncture / Unknown 10/04/2023 11:32 AM FLIGHT MECHANIC 10/04/2023 11:35 AM FLIGHT MECHANIC Narrative [facility] - 10/04/2023 2:37 PM FLIGHT MECHANIC ?Therapeutic Range 2.0-3.0 for most anticoagulated patients 2.5-3.5 or 4.0 for high risk patients The INR is only used for patients on stable oral anticoagulant therapy. It makes no significant contribution to the diagnosis or treatment of patients whose Protime is prolonged for other reasons. INR results are increased when heparin levels exceed 1.0 U/mL, which corresponds to an aPTT >125 seconds if the patient is on UFH. Adalid Osborne MD HEMATOLOGY Performing Organization Address [facility]/ZIP Co de Phone Number [facility] [address] [place] [address], * (ABNORMAL) LIPID PANEL W REFLEX MEASURED LDL (06/20/2023 12:26 PM FLIGHT MECHANIC) [facility] CHOLESTEROL,TOTAL 181 100 - 199 mg/dL 06/20/2023 9:44 PM FLIGHT MECHANIC [facility] Comment: Cholesterol, Total Reference Ranges Desirable <200 mg/dL Borderline 200-239 mg/dL High >=240 mg/dL TRIGLYCERIDES 424(H) <150 mg/dL 06/20/2023 9:44 PM FLIGHT MECHANIC [facility] HDL CHOLESTEROL 48 >40 mg/dL 3 9:44 PM FLIGHT MECHANIC [facility] NON-HDL CHOLESTEROL 133 <145 mg/dl 06/20/2023 9:44 PM FLIGHT MECHANIC [facility] CHOL/HDL RATIO 3.77 <4.50 06/20/2023 9:44 PM FLIGHT MECHANIC [facility] LDL CHOLESTEROL 3 9:44 PM FLIGHT MECHANIC [facility] Comment:Invalid LDL when Tri g >400. VLDL CHOLESTEROL COMMENT 06/20/2023 9:44 PM FLIGHT MECHANIC [facility] Comment:Unable to calculate VLDL. PROVIDER ORDERED STATUS RANDOM 06/20/2023 9:44 PM FLIGHT MECHANIC [facility] Blood BLOOD SPECIMEN / Unknown Butterfly / Unknown 06/20/2023 12:26 PM FLIGHT MECHANIC 06/20/2023 12:27 PM FLIGHT MECHANIC Adalid Osborne MD CHEMISTRY Performing Organization Address [facility]/ZIP Co de Phone Number [facility] [address] [place] [address], * LC HIV-1/O/2, 4TH GENERATION (09/21/2022 11:15 AM FLIGHT MECHANIC) HIV Scr 4th Gen Non Reactive Non Reactive 09/25/2022 10:06 PM FLIGHT MECHANIC [facility] ([facility]) Comment: HIV Negative HIV-1/HIV-2 antibodies and HIV-1 p24 antigen were NOT detected. There is no laboratory evidence of HIV infection. Blood BLOOD SPECIMEN / Unknown Venipuncture / Unknown 09/21/2022 11:15 AM FLIGHT MECHANIC 09/21/2022 11:19 AM FLIGHT MECHANIC Narrative [facility] - 09/25/2022 10:06 PM FLIGHT MECHANIC Performed at: ??[address] ??[id number] Lamp Shade Maker: Jag Chen MD, Phone: ??[phone] Adalid Osborne MD LABORATORY [facility] ([facility]) [address] [place] [id number], * CT CHEST ABDOMEN PELVIS W (04/09/2018 2:34 PM CDT) Anatomical Region Laterality Modality Abdomen, Pelvis, AORTA, LIVER, SPLEEN Computed Tomography 04/09/2018 3:05 PM CDT Narrative 04/09/2018 3:05 PM CDT INDICATIONS: Stomach and lower back pain. Bowel movement changes. 30 pounds unintentional weight loss 1 month. TECHNIQUE: The chest, abdomen, and pelvis were scanned from the lung apices to the symphysis pubis with 100 mL of Omnipaque 350. Oral contrast was also ingested. Sagittal and coronal reformatted images were generated. COMPARISON: Prior CT scan abdomen and pelvis from [facility] dated 05/09/2015. FINDINGS: Chest: The thoracic inlet is normal. There are atherosclerotic changes of the aorta. There is no evidence of aneurysm. There are calcified lymph nodes in the left hilum. No pneumothorax. No consolidations or significant pleural effusions. The subcentimeter nodules at the left lung base are stable dating back to 2014 and are felt to be benign granulomas. Abdomen and pelvis: There is diffuse fatty infiltration liver. There are calcified granulomata in the spleen. Pancreas is unremarkable. No calcified gallstones in the gallbladder. No adrenal masses. Kidneys are normal in size and position. No obstruction or hydronephrosis. The appendix is normal. There is diverticulosis. There is also a large probable abscess which extends just above the sigmoid colon and measures 6.9 x 6.8 cm on image 129 of series 2B and contains gas and fluid. There is also probable abscess seen posterior to the sigmoid colon on image 148 of series 2B this also contains gas and fluid; favor this represents diverticulitis with diverticular abscess formation, however, when acute symptoms resolve colonoscopy is suggested to exclude underlying neoplasia. The wall of the sigmoid colon in this region is thickened. Study was reviewed with Paradise Patel. IMPRESSION: 1. Old granulomatous disease. 2. Fatty infiltration of liver. 3. Appendix is normal. 4. Diverticulosis with probable diverticulitis involving the sigmoid colon with abscess formation fluid and gas seen within the abscess extending superior to the sigmoid colon and posterior to the sigmoid. ??Colonoscopy is suggested to exclude underlying neoplasia when acute symptoms subside. Please note that all CT scans at this facility use dose modulation, iterative reconstruction, and/or weight-based dosing when appropriate to reduce radiation dose to as low as reasonably achievable. Dictated by Lowell Jorgensen MD @ Apr 09 2018 ??3:05PM (Electronically Signed) Procedure Note Lowell Conti MD - 04/09/2018 INDICATIONS: Stomach and lower back pain. Bowel movement changes. 30 poundsunintentional weight loss 1 month. TECHNIQUE: The chest, abdomen, and pelvis were scanned from the lung apices to thesymphysis pubis with 100 mL of Omnipaque 350. Oral contrast was alsoingested. Sagittal and coronal reformatted images were generated. COMPARISON: Prior CT scan abdomen and pelvis from [facility] dated05/09/2015. FINDINGS: Chest: The thoracic inlet is normal. There are atherosclerotic changes of theaorta. There is no evidence of aneurysm. There are calcified lymph nodesin the left hilum. No pneumothorax. No consolidations or significantpleural effusions. The subcentimeter nodules at the left lung base arestable dating back to 2014 and are felt to be benign granulomas. Abdomen and pelvis: There is diffuse fatty infiltration liver. There are calcified granulomatain the spleen. Pancreas is unremarkable. No calcified gallstones in thegallbladder. No adrenal masses. Kidneys are normal in size and position.No obstruction or hydronephrosis. The appendix is normal. There isdiverticulosis. There is also a large probable abscess which extends justabove the sigmoid colon and measures 6.9 x 6.8 cm on image 129 of [id number] and contains gas and fluid. There is also probable abscess seen posterior to the sigmoid colon onimage 148 of series 2B this also contains gas and fluid; favor thisrepresents diverticulitis with diverticular abscess formation, however,when acute symptoms resolve colonoscopy is suggested to exclude underlyingneoplasia. The wall of the sigmoid colon in this region is thickened. Study was reviewed with Paradise Patel. IMPRESSION: 1. Old granulomatous disease. 2. Fatty infiltration of liver. 3. Appendix is normal. 4. Diverticulosis with probable diverticulitis involving the sigmoidcolon with abscess formation fluid and gas seen within the abscessextending superior to the sigmoid colon and posterior to the sigmoid.Colonoscopy is suggested to exclude underlying neoplasia when acutesymptoms subside. Please note that all CT scans at this facility use dose modulation,iterative reconstruction, and/or weight-based dosing when appropriate toreduce radiation dose to as low as reasonably achievable. Dictated by Lowell Jorgensen MD @ Apr 09 2018 3:05PM (Electronically Signed) Paradise Patel MD CT * ANTI HCV (08/10/2016 11:44 AM FLIGHT MECHANIC) HEPATITIS C ANTIBODY Non-Reacti ve Non-Reacti ve 08/10/2016 5:34 PM FLIGHT MECHANIC [facility] Blood BLOOD SPECIMEN / Unknown Venipuncture / Unknown 08/10/2016 11:44 AM FLIGHT MECHANIC 08/10/2016 11:45 AM FLIGHT MECHANIC Narrative [facility] - 08/10/2016 5:34 PM FLIGHT MECHANIC Antibodies to HCV not detected; does not exclude the possibility of exposure to HCV. Adalid Osborne MD SEND OUTS [facility] [address] [place] [address], [place] from Last 3 Months or Most Recently Relevant to Health Maintenance Advance Directives * Full Code (Latest Code Status on File) Date Activated Date Inactivated Comments 08/13/2018 10:38 AM 08/19/2018 4:57 PM * Full Code Date Activated Date Inactivated Comments 04/10/2018 1:40 PM 04/17/2018 4:02 PM * Full Code Date Activated Date Inactivated Comments 05/10/2015 3:24 PM 05/12/2015 7:43 PM Care Teams Agricultural Real Estate Agent Relationship Specialty Start Date End Date Adalid Osborne MD [address] [place] [address] PCP - General 03/11/06
[2023-12-30 10:06] LABS: Basophils Absolute Auto 0.06 K/uL (0.00-0.30); Basophils Percent Auto 0.6 % (0.0-3.0); Eosinophils Absolute Auto 0.15 K/uL (0.00-0.50); Eosinophils Percent Auto 1.4 % (0.0-7.0); Hematocrit 44.4 % (37.0-53.0); Hemoglobin* 13.8 gm/dL (13.5-17.5); Immature Granulocytes Pct Auto 0.9 %; Lymphocytes Percent Auto 18.2 % (20-44); Mean Corpuscular HGB Conc 31 gm/dL (32-36); Mean Corpuscular Hemoglobin 31 pg (26-34); Mean Corpuscular Volume 98 fL (80-100); Monocytes Percent Auto 5.6 % (0.0-11.0); Neutrophils Percent Auto 73.3 % (42.0-72.0); Platelet Count* 207 K/uL (140-440); RDW Coefficient of Variation % 15.3 % (11.5-15.5); Red Blood Count 4.53 m/uL (4.30-5.90); White Blood Count* 10.78 K/uL (4.50-11.00)
[2023-12-30 10:19] LABS: Slide Review Reflex No
[2023-12-30 10:26] LABS: Albumin* 4.6 g/dL (3.3-5.0); Chloride* 100 mmol/L (96-114); Sodium* 139 mmol/L (135-149)
[2023-12-30 10:27] LABS: Potassium* 4.4 mmol/L (3.6-5.1)
[2023-12-30 10:29] LABS: Anion Gap 9 mEq/L (7-15); Carbon Dioxide* 30 mmol/L (20-32); Est. Creatinine Clearance* 86.22; Estimated Glomerular Filt Rate 86 ml/min; Total Protein* 8.9 g/dL (6.0-8.3)
[2023-12-30 10:30] LABS: Alanine Aminotransferase* 53 U/L (4-50); Alkaline Phosphatase* 144 U/L (40-150); Aspartate Amino Transferase* 95 U/L (12-35); Bilirubin Direct* 0.4 mg/dL (0.0-0.5); Bilirubin Total* 1.1 mg/dL (0.1-1.5); Blood Urea Nitrogen* 23 mg/dL (7-30); Calcium* 9.2 mg/dL (8.4-10.6); Glucose* 159 mg/dL (60-115)
[2023-12-30 10:32] LABS: C Reactive Protein* 3.6 mg/dL (0.5-1.0)
[2023-12-30 11:20] VITALS: BP 133/84; PULSE 81; RESP 18; TEMP 35.9
== END 2023-12-30 11:21 | disposition home or self-care (01) ==
PROVIDERS: Emergency Provider Family Medicine; PCP Family Medicine
DX: R21 Rash and other nonspecific skin eruption (principal)
CPT/HCPCS: 36415; 80053; 82248; 85025; 86140; 99283; 99284

== ENCOUNTER 2025-05-19 09:49 | Outpatient (CLI) | payer MEDICARE, OTHER, SELFPAY | END 2025-05-19 09:50 | disposition home or self-care (01) | PROVIDERS: PCP Family Medicine; Visit Provider Emergency Medicine | DX: K62.5 Hemorrhage of anus and rectum (principal) | CPT/HCPCS: A0425; A0429 ==

== ENCOUNTER 2025-05-19 10:21 | Emergency (ER) | payer MEDICARE, OTHER, SELFPAY ==
--- NOTE | 2025-05-19 10:25 | ED_ITS ---
HPI - General Adult General Date Seen: 05/19/25 Chief complaint: GI Bleed Stated complaint: GI issue Time Seen by Provider: 05/19/25 10:24 History of Present Illness HPI narrative: 59-year-old gentleman brought to the ER today by EMS from his home, in [place]. Report from paramedics is that he call 911 this morning because of rectal bleeding. He has apparently had liquid red blood per rectum for the past 4 days. Medics suspect that it might be hemorrhoidal bleeding. He does have a past medical history of AFib, elevated BMI, diabetes. He is on warfarin. Unknown when his last INR was. No other history of GI bleeding. Per [facility] electronic medical record INR was 2.02 on 05/17/2023. hemoglobin was 13.8 on 12/30/2023. Platelet count was 207 on 12/30/2023. Per [facility] EMR he has history of hypertension, pulmonary hypertension, paroxysmal AFib, anticoagulation with warfarin with goal INR 2-3, morbid obesity, gout, hypertriglyceridemia, type 2 diabetes, alcohol use disorder,. Most recent INR was 1.7 on 03/26/2025. On that day hemoglobin was 13.0, platelet count was 187, white count was 10.1. BUN 20, creatinine 1.13. Per patient he for about 4 days he started noting a little bit of dark red blood drainage from his rectum. Initially on the toilet paper in subsequently dripping in between bowel movements. He says he typically has loose bowel movements and has not had any hard firm bowel movements are painful defecation lately. No rectal foreign bodies. No known injury to his rectum or perineum. He has noted a little bit of swelling next to his rectum that might be a hemorrhoid. It has been getting progressively more painful. He is not having any abdominal pain. No fever or chills. Urination has been normal. Today the bleeding was ongoing with dripping (not worse are heavier than normal) but the pain was worse. He knew he had to come to the doctor but he could not sit in the chair of his 's car to come in so call the ambulance. Related Data Home Medications ?Medication ?Instructions ?Recorded ?Confirmed allopurinol 300 mg tablet 450 mg PO DAILY 06/11/22 amlodipine 10 mg tablet 10 mg PO DAILY 06/11/22 10/11/01 atenolol 100 mg tablet 100 mg PO DAILY 06/11/22 atorvastatin 40 mg tablet 40 mg PO HS 06/11/22 4 glycopyrrolate 9 mcg-formoterol 2 inh inhalation BID 1 05/14/23 4.8 mcg HFA aerosol inhaler (Bevespi Aerosphere) ipratropium 0.5 mg-albuterol 3 mg 3 ml inhalation Q6-8 H PRN 05/14/23 05/14/23 (2.5 mg base)/3 mL nebulization soln levothyroxine 75 mcg tablet 75 mcg PO DAILY 05/14/23 0 12/30/23 potassium chloride 20 mEq 20 meq PO .QD 05/14/2305/14 tablet,extended release(part/cryst) warfarin 1 mg tablet PO .QD 05/14/23 Previous Rx's ?Medication ?Instructions ?Recorded albuterol sulfate 90 mcg/actuation 1 inh inhalation QI D PRN shortness 06/15/22 aerosol inhaler (ProAir HFA) of breath or wheezing #8. 5 grams magnesium oxide 400 mg PO BID #60 tabs 06/15 torsemide 100 mg tablet 100 mg PO DAILY #30 tabs 12/31 warfarin 5 mg tablet 5 mg PO DAILY #30 tabs 06/16 multivitamin with folic acid 400 1 tab PO DAILY #30 ta bs 05/17/23 mcg tablet (Thera) potassium chloride 10 mEq 30 meq (3 x 10 mEq) PO BID # 180 05/17/23 capsule,extended release caps spironolactone 25 mg tablet 25 mg PO DAILY #30 tabs torsemide 20 mg tablet 80 mg (4 x 20 mg) PO .QD #60 tabs 05/17/23 hydroxyzine HCl 25 mg tablet 25 mg PO TID PRN #20 tabs 12/30/23 amoxicillin 875 mg-potassium 1 tab PO BID #14 tabs 04/05 clavulanate 125 mg tablet oxycodone-acetaminophen 5 mg-325 1 tab PO Q4-6H PRN pa in #10 tabs 05/19/25 mg tablet (Percocet) Allergies Allergy/AdvReac Type Severity Reaction Status Date / Time No Known Drug Allergies Allergy Verified 05/19/25 10:40 [facility] Medical History Obesity ?E66.9 - Obesity, unspecified (ICD-10) MIRANDA (obstructive sleep apnea) ?G47.33 - Obstructive sleep apnea (adult) (pediatric) (ICD-10) Anasarca ?R60.1 - Generalized edema (ICD-10) Heart failure with preserved ejection fraction, borderline, class III ?I50.30 - Unspecified diastolic (congestive) heart failure (ICD-10) Pulmonary hypertension ?I27.20 - Pulmonary hypertension, unspecified (ICD-10) Tobacco use ?Z72.0 - Tobacco use (ICD-10) Hypertriglyceridemia ?E78.1 - Pure hyperglyceridemia (ICD-10) Degenerative joint disease (DJD) of lumbar spine ?M47.816 - Spondylosis without myelopathy or radiculopathy, lumbar region (ICD-10) COPD (chronic obstructive pulmonary disease) ?J44.9 - Chronic obstructive pulmonary disease, unspecified (ICD-10) Non-insulin dependent diabetes mellitus Gout ?M10.9 - Gout, unspecified (ICD-10) Essential hypertension ?I10 - Essential (primary) hypertension (ICD-10) Normocytic anemia ?D64.9 - Anemia, unspecified (ICD-10) Social History What is your current living situation?: I presently have a place to live Problems where you live: no known problems Problems where you live details: No issues In the past 12 months, utilities in danger of being shut off: no In past 12 months, lack of transportation kept you from medical appts, meetings, work, or getting things needed for daily living: yes In the past 12 mos, have been you worried that your food would run out before you had money to buy more?: never true In the past 12 mos, the food you bought just didn't last and you didn't have money to buy more?: never true Highest level of school completed/degree received: high school graduate Smoking Status: Former smoker What tobacco products do you use: cigarettes Smoking packs per day: 2 Smoking cigarettes per day: 40.0 Years smoked: 42 Smoking pack-years: 84.00 Smoking quit date/years: >15 years ago Do you use any of these nicotine containing products: None Second hand tobacco smoke exposure: No How often do you have a drink containing alcohol: 4 or more times a week Alcohol type: hard liquor Alcohol type details: Vodka- 1 liter a day How many standard drinks containing alcohol do you have on a typical day: 7 to 9 How often do you have six or more drinks on one occasion: Daily or almost daily AUDIT-C Alcohol total score: 11 Non-prescribed substance use: denies use Caffeine: No How often does anyone, including family, friends and others, physically hurt you : never How often does anyone, including family, friends and others, insult or talk down to you: never How often does anyone, including family, friends and others, threaten you with harm: never How often does anyone, including family, friends and others, scream or curse at you: never service: Yes Health Related Social Needs: transportation insecurity (Z59.82) Exam Narrative: Exam Narrative: Constitutional: Appears well-developed over -nourished. Alert. Conversant. Non toxic. HENT: Head: Atraumatic. Nose: Nose normal. Mouth/Throat: Oral mucosa is clear and moist. no trismus. Pharynx normal. Tonsils symmetric. No tonsillar enlargement, erythema, or exudate. Eyes: Conjunctivae normal. EOM normal. Pupils equal, round, and reactive to light. No scleral icterus. Neck: Normal range of motion. Neck supple. No tracheal deviation present. Cardiovascular: Normal rate, regular rhythm. No gallop. No friction rub. No murmur heard. Symmetric radial artery pulses Pulmonary/Chest: Effort normal. No stridor. No respiratory distress. No wheezes. No rales. No rhonchi . No tenderness. Abdominal: Soft. Bowel sounds normal. No distension. No mass. No tenderness. No rebound. No guarding. Rectal: He does have a small 1 cm nontender external hemorrhoid in the left 9 o'clock position of the external rectum. Otherwise external rectum looks normal. I do not see any fissures. In the anterior midline of the perineum about 3 cm anterior to the rectal opening he does have an area of swelling and bloody purulent drainage through the pores of the sweat glands suggestive for a perirectal or perineal abscess. There is some overlying erythema and tenderness. Rough size is 1-2 cm. Remainder of the perineum and scrotum looks normal. Musculoskeletal: RUE: Normal range of motion. No tenderness. No deformity LUE: Normal range of motion. No tenderness. No deformity RLE: Normal range of motion. No edema. No tenderness. No deformity LLE: Normal range of motion. No edema. No tenderness. No deformity Neurological: Alert and oriented to person, place, and time. Normal strength. CN II-VII intact. No sensory deficit. GCS eye subscore is 4. GCS verbal subscore is 5. GCS motor subscore is 6. Normal coordination Skin: Skin is warm and dry. No rash noted. No pallor. Normal capillary refill. Psychiatric: Normal mood. Normal affect. Const: Vital Signs, click to edit/add: Vital Signs - 24 hr 05/19/25 10:41 Temperature 97.1 F L Pulse Rate [Pulse Oximeter] 79 Respiratory Rate 20 Blood Pressure [Ri ght Upper Arm] 124/65 Pulse Oximetry 95 Oxygen Delivery Me thod Room Air Course Vital Signs Vital signs: Initial Vital Signs Temperature 97.1 F L 05/19/25 10:41 Temperature Source Temporal Artery Scan 05/19/25 10:41 Pulse Rate 79 05/19/25 10:41 Respiratory Rate 20 05/19/25 10:41 Blood Pressure 124/65 05/19/25 10:41 Blood Pressure Mean 84 05/19/25 10:41 Pulse Oximetry 95 05/19/25 10:41 Oxygen Delivery Method Room Air 05/19/25 10:41 Vital Signs Temperature 97.1 F L 05/19/25 10:41 Pulse Rate 79 05/19/25 10:41 Respiratory Rate 20 05/19/25 10:41 Blood Pressure 124/65 05/19/25 10:41 Pulse Oximetry 95 05/19/25 10:41 Oxygen Delivery Method Room Air 05/19/25 10:41 Temperature 97.1 F L 05/19/25 10:41 Pulse Rate 79 05/19/25 10:41 Respiratory Rate 20 05/19/25 10:41 Blood Pressure 124/65 05/19/25 10:41 Pulse Oximetry 95 05/19/25 10:41 Oxygen Delivery Method Room Air 05/19/25 10:41 Medications Administered Medications: Discontinued Medications Generic Name Dose Route Start Last Admin Trade Name Bony PRN Reason Stop Dose Admin Amoxicillin/Clavulanate Potassium 875 mg 05/19/25 12:03 05/19/25 12:34 Amoxicillin/Clavulanate 875 Mg/125 Mg Tablet PO 05/19/25 12:04 875 mg ONCE ONE Administration Lidocaine/Epinephrine 20 ml 05/19/25 10:42 05/19/25 12:20 Lidocaine 1%-Epi 1:100,000 INFILTRATI 05/19/25 10:43 20 ml ONCE ONE Administration Medical Decision Making MDM Narrative Medical decision making narrative: Pleasant 59-year-old gentleman on warfarin for stroke prophylaxis with AFib presenting to the ER today with a 4 day history of ?rectal bleeding and rectal pain. His initial concern was that he might have a bleeding hemorrhoid. However on my clinical exam I see evidence for an abscess just anterior to the rectum. This could be a perirectal abscess or also could be a perineum medial infection/pilonidal abscess. Does appear to be localized to a 2 cm area just anterior to the rectum. I do not see any evidence for surrounding cellulitis on the perineum or Tomasa's gangrene. The external rectum does show evidence for a small non thrombosed hemorrhoid that does not appear to been recently bleeding. At this point I do not think he needs further workup with CT imaging of his abdomen or referral for colonoscopy since there is a clear external source for the blood he has been noticing. He is hemodynamically stable and nontoxic. Laboratory workup is reassuring. After verbal consent we did perform an I and D of this abscess and did get out about 10 mL of bloody purulent fluid. Wound culture sent. Will start the patient on Augmentin for antibiotics for this abscess. We did consult with General surgery, Dr. Barahona. She agrees that the patient would be appropriate to follow-up in surgery clinic. Dr. Jean-Baptiste since initial recommendation was to have the patient call the [facility] clinic (his primary care through [facility]) to arrange an appointment in 2-4 days to see the surgeons at the [facility] clinic. However when he called the [facility] clinic they were not able to see him without a ?referral? from the ER. We then at re-contacted Dr. Barahona and she was able set the patient up to see the surgeons in the clinic here in [place] on Saturday morning, 2 days from now, at 8:30 a.m.. Risk of worsening infection reviewed. Precautions for return to the ER reviewed. Questions answered. Prescriptions for pain meds provided along with antibiotics-Augmentin. Opiate sedation precautions reviewed. Lab Data Labs: Lab Results 05/19/25 Range/Units 11:17 WBC 9.83 (4.50-11.00) K/uL RBC 4.67 (4.30-5.90) m/uL Hgb 13.5 (13.5-17.5) gm/dL Hct 43.5 (37.0-53.0) % MCV 93 (80-100) fL MCH 29 (26-34) pg MCHC 31 L (32-36) gm/dL RDW Coeff of [place] 15.7 H (11.5-15.5) % Plt Count 223 (140-440) K/uL Neut % (Auto) 74.9 H (42.0-72.0) % Lymph % (Auto) 17.6 L (20-44) % [place] % (Auto) 4.9 (0.0-11.0) % Eos % (Auto) 1.2 (0.0-7.0) % Baso % (Auto) 0.5 (0.0-3.0) % Neut # (Auto) 7.40 H (1.7-7.0) K/uL Lymph # (Auto) 1.70 (0.90-2.90) K/uL [place] # (Auto) 0.50 (0.00-0.90) K/UL Eos # (Auto) 0.12 (0.00-0.50) K/uL Baso # (Auto) 0.05 (0.00-0.30) K/uL Abs Immat Gran (auto) 0.09 (0.00-0.30) K/uL Imm/Tot Granulo (auto) 0.9 % INR 2.64 H (0.91-1.10) Sodium 138 (135-149) mmol/L Potassium 4.7 (3.6-5.1) mmol/L Chloride 101 (96-114) mmol/L Carbon Dioxide 25 (20-32) mmol/L Anion Gap 12 (7-15) mEq/L BUN 37 H (7-30) mg/dL Creatinine 1.3 (0.5-1.5) mg/dL Estimated Creat Clear 63.55 Estimated GFR 63 ml/min Glucose 127 H (60-115) mg/dL Lactate 1.4 (0.5-1.9) mmol/L Calcium 9.9 (8.4-10.6) mg/dL Discharge Plan Discharge Clinical Impression: Abscess, perirectal Patient Disposition: Home, Self-Care Condition: Stable Instructions: Rectal Abscess (ED), Abscess Incision and Drainage (DC) Additional Instructions: As we discussed, the drainage and pain are due to an infection of the sweat glands and skin right next to your rectum. This is called an abscess. We have already performed the incision and drainage to drain the pus and blood out of the abscess cavity. Please keep the packing in place for the next couple of days. Be sure to wash your bottom in the shower twice a day and after each time you pass a bowel movement. Leave the packing in place and try not to pull it out. We are going to start you on antibiotics today to help treat the residual infection. Use the prescription pain killer (Percocet) if needed for pain. Be careful because Percocet can cause dizziness, drowsiness, constipation, and can be addictive. Do not drive a car for 6 hours after taking Percocet Please call the [facility] clinic today to schedule an ER follow-up visit with 1 of the surgeons for Saturday or Saturday. Tell the psychologist clinical that they need to add on a visit for you with 1 of the surgeons because I have already spoken with the general surgeon on-call. As we discussed, if you have any worsening pain, spreading swelling or redness, high fever, worsening bleeding, or any problems, return to the ER immediately. Prescriptions: New amoxicillin-pot clavulanate 875-125 mg tablet 1 tab PO BID Qty: 14 0RF oxycodone-acetaminophen [Percocet] 5-325 mg tablet 1 tab PO Q4-6H PRN (Reason: pain) Qty: 10 0RF No Action allopurinol 300 mg tablet 450 mg PO DAILY amlodipine 10 mg tablet 10 mg PO DAILY atorvastatin 40 mg tablet 40 mg PO HS atenolol 100 mg tablet 100 mg PO DAILY albuterol sulfate [ProAir HFA] 90 mcg/actuation HFA aerosol inhaler 1 inh inhalation QID PRN (Reason: shortness of breath or wheezing) Qty: 8.5 0RF magnesium oxide 400 mg magnesium tablet 400 mg PO BID Qty: 60 0RF warfarin 5 mg tablet 5 mg PO DAILY Qty: 30 0RF torsemide 100 mg tablet 100 mg PO DAILY Qty: 30 2RF hydroxyzine HCl 25 mg tablet 25 mg PO TID PRNQty: 20 0RF levothyroxine 75 mcg tablet 75 mcg PO DAILY potassium chloride 20 mEq tablet,ER particles/crystals 20 meq PO .QD warfarin 1 mg tablet PO .QD Rx Instructions: TAKE 2.5MG ON SATURDAY AND SATURDAY, 1MG ALL OTHER DAY ipratropium-albuterol 0.5 mg-3 mg(2.5 mg base)/3 mL solution for nebulization 3 ml inhalation Q6-8H PRN Bevespi Aerosphere 9-4.8 mcg HFA aerosol inhaler 2 inh inhalation BID spironolactone 25 mg Tablet 25 mg PO DAILY Qty: 30 0RF multivitamin with folic acid [Thera] 400 mcg Tablet 1 tab PO DAILY Qty: 30 0RF torsemide 20 mg tablet 80 mg PO .QD Qty: 60 0RF potassium chloride 10 mEq capsule, extended release 30 meq PO BID Qty: 180 2RF Follow Up/Referrals: Adalid Osborne MD [Primary Care Provider, Family Practice] Stand Alone Forms: [facility] Info Instructions Procedures I/D Type: abscess Site: cecily-rectal (Midline perineum 2-3 cm anterior rectum) Written consent by: patient Verification/time out: correct patient, correct site and correct procedure Anesthesia I&D: lidocaine 1% and with Epi Amount of anesthesia used (mls): 10 Technique: incised with #11 blade (2 cm incision) Amount of fluid expressed (mL): 10 Packing used?: plain Estimated blood loss (if any): less than 5mls Specimens removed (if any): Wound culture obtained and sent Complications: other (No complications) Conclusion: patient tolerated procedure
[2025-05-19 10:41] VITALS: BP 124/65; PULSE 79; RESP 20; TEMP 36.2; O2SAT 95; BMI 51.6
[2025-05-19 11:22] LABS: Lactate* 1.4 mmol/L (0.5-1.9)
[2025-05-19 11:23] LABS: Hematocrit* 43.5 % (37.0-53.0); Hemoglobin* 13.5 gm/dL (13.5-17.5); Immature Granulocytes Abs Auto 0.09 K/uL (0.00-0.30); Immature Granulocytes Pct Auto 0.9 %; Mean Corpuscular HGB Conc 31 gm/dL (32-36); Mean Corpuscular Hemoglobin 29 pg (26-34); Mean Corpuscular Volume 93 fL (80-100); RDW Coefficient of Variation % 15.7 % (11.5-15.5); Red Blood Count* 4.67 m/uL (4.30-5.90); White Blood Count* 9.83 K/uL (4.50-11.00)
[2025-05-19 11:24] LABS: Lymphocytes Absolute Auto 1.70 K/uL (0.90-2.90); Slide Review Reflex No
[2025-05-19 11:36] LABS: Chloride* 101 mmol/L (96-114)
[2025-05-19 11:37] LABS: Potassium* 4.7 mmol/L (3.6-5.1); Sodium* 138 mmol/L (135-149)
[2025-05-19 11:39] LABS: Blood Urea Nitrogen* 37 mg/dL (7-30); Creatinine* 1.3 mg/dL (0.5-1.5); Est. Creatinine Clearance* 63.55; Estimated Glomerular Filt Rate 63 ml/min; INR 2.64 (0.91-1.10); Prothrombin Time 29.4 Seconds
[2025-05-19 11:40] LABS: Anion Gap 12 mEq/L (7-15); Calcium* 9.9 mg/dL (8.4-10.6); Carbon Dioxide* 25 mmol/L (20-32); Glucose* 127 mg/dL (60-115)
[2025-05-19] MEDS: LIDOCAINE 1%-EPI 1:100,000 20 ML INFILTRATI (12:20)
== END 2025-05-19 12:47 | disposition home or self-care (01) ==
PROVIDERS: Emergency Provider Emergency Medicine; PCP Family Medicine
DX: K61.1 Rectal abscess (principal); Z79.01 Long term (current) use of anticoagulants
CPT/HCPCS: 46050; 10060; 36415; 80048; 83605; 85025; 85610; 87070; 87205; 99283; 99284; A9270